=== PATIENT | female | born 1995 | race Caucasian/White ===

== ENCOUNTER 2020-02-23 06:25 | Inpatient (IN) | payer OTHER ==
--- OUTSIDE RECORDS SUMMARY | ~2020-02-23 | XMS | Encounter Summary ---
Demographics + + + | Address | [address] | | | [place] [address] | + + + | Home Phone | | + + + | Preferred Language | Unknown | + + + | Marital Status | | + + + | Gnosticism Affiliation | CHR | + + + | Race | White | + + + | Ethnic Group | Not or | + + + Author + + + | Author | [facility] | + + + | Organization | [facility] | + + + | Address | Unknown | + + + | Phone | Unavailable | + + + Support + + + + + | Name | Relationship | Address | Phone | + + + + + | Bolivar Harris | ECON | [address] | | | | | [place] [address] | | + + + + + Care Team Providers + +------+ + | Care Fur Comber Name | Role | Phone | + +------+ + | No Pcp Per Patient | PCP | Unavailable | + +------+ + Encounter Details +--------+------+ + + + | Date | Type | Department | Care Team | Description | +--------+------+ + + + | 11/20/ | Lab | Laboratory at | | Encounter for | | 2017 | | [facility] | | care in | | | | Center [address] | | first trimester of | | | | St [place], [place] | | first ; | | | | [address] | | History of being | | | | [phone] | | tatooed | +--------+------+ + + + Social History + +-------+ +--------+------+ | Tobacco Use | Types | Packs/Day | Years | Date | | | | | Used | | + +-------+ +--------+------+ | Never Smoker | | | | | + +-------+ +--------+------+ + +---+---+---+ | Smokeless Tobacco: | | | | | Never Used | | | | + +---+---+---+ + + +---------+ + | Alcohol Use | Drinks/Week | oz/Week | Comments | + + +---------+ + | No | | | | + + +---------+ + + + + | Sex Assigned at | Date Recorded | | | | + + + | Not on file | | + + + + + + + | Job Start Date | Occupation | Industry | + + + + | Not on file | Not on file | Not on file | + + + + + + + + | Travel History | Travel Start | Travel End | + + + + + + | No recent travel history available. | + + documented as of this encounter Plan of Treatment +--------+ + + + + | Date | Type | Specialty | Care Team | Description | +--------+ + + + + | 02/24/ | Hospital | Obstetrics & | Amy Ortiz | | 2019 | Encounter | Gynecology | MD Sayra [address] | | | | | , [facility] [address] | | | | | | [place], [place] | | | | | | [address] | | | | | | [phone] | | | | | | | | +--------+ + + + + | 03/02/ | | Obstetrics & | Tika Clifford | | | 2019 | | Gynecology | MD Gold,[address] | | | | | | [place], | | | | | | [place] [address] | | | | | | [phone] | | | | | | | | +--------+ + + + + documented as of this encounter Procedures + +--------+ + + + | Procedure Name | Priori | Date/Time | Associated Diagnosis | Comments | | | ty | | | | + +--------+ + + + | HIV-1,2 AB/HIV-1 P24 | Routin | 11/20/2017 | Encounter for | Results for this | | AG SCREEN | e | 5:17 PM | care in | procedure are in the | | | | PDT | first trimester of | results section. | | | | | first | | + +--------+ + + + | CBC ONLY | Routin | 11/20/2017 | Encounter for | Results for this | | | e | 5:17 PM | care in | procedure are in the | | | | PDT | first trimester of | results section. | | | | | first | | + +--------+ + + + | HEPATITIS C AB | Routin | 11/20/2017 | History of being | Results for this | | SCREEN, REFLEX TO | e | 5:17 PM | tatooed Encounter | procedure are in the | | RNA QUANT | | PDT | for care in | results section. | | | | | first trimester of | | | | | | first | | + +--------+ + + + | HEPATITIS B SURFACE | Routin | 11/20/2017 | Encounter for | Results for this | | ANTIGEN | e | 5:17 PM | care in | procedure are in the | | | | PDT | first trimester of | results section. | | | | | first | | + +--------+ + + + | CBC (HEMOGRAM ONLY) | Routin | 11/20/2017 | Encounter for | Results for this | | | e | 5:17 PM | care in | procedure are in the | | | | PDT | first trimester of | results section. | | | | | first | | + +--------+ + + + | CULTURE, URINE | Routin | 11/20/2017 | Encounter for | Results for this | | | e | 5:17 PM | care in | procedure are in the | | | | PDT | first trimester of | results section. | | | | | first | | | | | | History of being | | | | | | tatooed | | + +--------+ + + + | ELY RUIZ W/ | Routin | 11/20/2017 | Encounter for | Results for this | | REFLEX | e | 5:17 PM | care in | procedure are in the | | | | PDT | first trimester of | results section. | | | | | first | | + +--------+ + + + | VARICELLA ZOSTER | Routin | 11/20/2017 | Encounter for | Results for this | | IGG, SERUM | e | 5:17 PM | care in | procedure are in the | | | | PDT | first trimester of | results section. | | | | | first | | + +--------+ + + + | RPR SERUM | Routin | 11/20/2017 | Encounter for | Results for this | | | e | 5:17 PM | care in | procedure are in the | | | | PDT | first trimester of | results section. | | | | | first | | + +--------+ + + + | RUBELLA IGG AB, | Routin | 11/20/2017 | Encounter for | Results for this | | SERUM | e | 5:17 PM | care in | procedure are in the | | | | PDT | first trimester of | results section. | | | | | first | | + +--------+ + + + | ANTIBODY SCREEN | Routin | 11/20/2017 | Encounter for | Results for this | | | e | 5:17 PM | care in | procedure are in the | | | | PDT | first trimester of | results section. | | | | | first | | + +--------+ + + + | TYPE AND SCREEN | Routin | 11/20/2017 | Encounter for | Results for this | | | e | 5:17 PM | care in | procedure are in the | | | | PDT | first trimester of | results section. | | | | | first | | + +--------+ + + + | ABO & RH TYPE | Routin | 11/20/2017 | Encounter for | Results for this | | | e | 5:17 PM | care in | procedure are in the | | | | PDT | first trimester of | results section. | | | | | first | | + +--------+ + + + | TSH | Routin | 11/20/2017 | Encounter for | Results for this | | | e | 5:17 PM | care in | procedure are in the | | | | PDT | first trimester of | results section. | | | | | first | | + +--------+ + + + | CHLAM/GC APTIMA, | Routin | 11/20/2017 | Encounter for | Results for this | | RNA, TMA | e | 5:08 PM | care in | procedure are in the | | | | PDT | first trimester of | results section. | | | | | first | | + +--------+ + + + documented in this encounter Results CULTURE, URINE (11/20/2017 5:17 PM PDT) + + + + + + | Component | Value | Ref Range | Performed | Pathologist | | | | | At | Signature | + + + + + + | CULTURE | >100,000 cfu/mL | | [facility] | | | RESULT | Staphylococcus | | A MEDICAL | | | URINE | lugdunensis (A) | | CENTER | | + + + + + + + + | Specimen | + + | Urine | + + + + +--------+ + | Organism | Antibiotic | Method | Susceptibility | + + +--------+ + | Staphylococcus | Penicillin | | <=0.03: Sensitive | | lugdunensis | | | | + + +--------+ + | Staphylococcus | Cefoxitin Screen | | NEG: Sensitive | | lugdunensis | | | | + + +--------+ + | Staphylococcus | Ciprofloxacin | | <=0.5: Sensitive | | lugdunensis | | | | + + +--------+ + | Staphylococcus | Clindamycin | | <=0.25: Sensitive | | lugdunensis | | | | + + +--------+ + | Staphylococcus | Erythromycin | | <=0.25: Sensitive | | lugdunensis | | | | + + +--------+ + | Staphylococcus | Gentamicin | | <=0.5: Sensitive | | lugdunensis | | | | + + +--------+ + | Staphylococcus | Levofloxacin | | <=0.12: Sensitive | | lugdunensis | | | | + + +--------+ + | Staphylococcus | Linezolid | | 1: Sensitive | | lugdunensis | | | | + + +--------+ + | Staphylococcus | Moxifloxacin | | <=0.25: Sensitive | | lugdunensis | | | | + + +--------+ + | Staphylococcus | Nitrofurantoin | | <=16: Sensitive | | lugdunensis | | | | + + +--------+ + | Staphylococcus | Oxacillin | | <=0.25: Sensitive | | lugdunensis | | | | + + +--------+ + | Staphylococcus | Rifampin | | <=0.5: Sensitive | | lugdunensis | | | | + + +--------+ + | Staphylococcus | Tetracycline | | <=1: Sensitive | | lugdunensis | | | | + + +--------+ + | Staphylococcus | Vancomycin | | 1: Sensitive | | lugdunensis | | | | + + +--------+ + + + + + + | Performing | Address | City/State/Zipcode | Phone Number | | Organization | | | | + + + + + | [facility] | [address] [place] | [place] | [phone] | | [facility] | [facility] | [address] | | + + + + + CBC ONLY (11/20/2017 5:17 PM PDT) + + + + + + | Component | Value | Ref Range | Performed | Pathologist | | | | | At | Signature | + + + + + + | WBC COUNT | 8.6 | 3.5 - 10.8 K/cu | [facility] | | | | | mm | A MEDICAL | | | | | | CENTER | | + + + + + + | RED CELL | 5.11 | 4.00 - 5.20 | [facility] | | | COUNT | | M/cu mm | A MEDICAL | | | | | | CENTER | | + + + + + + | HEMOGLOBIN | 13.7 | 12.0 - 16.0 | [facility] | | | | | g/dL | A MEDICAL | | | | | | CENTER | | + + + + + + | HEMATOCRIT | 40.2 | 36.0 - 46.0 % | [facility] | | | | | | A MEDICAL | | | | | | CENTER | | + + + + + + | MCV | 78.5 (L) | 80.0 - 96.0 fL | [facility] | | | | | | A MEDICAL | | | | | | CENTER | | + + + + + + | MCH | 26.8 (L) | 28.0 - 34.7 pg | [facility] | | | | | | A MEDICAL | | | | | | CENTER | | + + + + + + | MCHC | 34.1 | 33.0 - 35.5 | [facility] | | | | | g/dL | A MEDICAL | | | | | | CENTER | | + + + + + + | RDW | 13.6 | 11.5 - 15.0 % | [facility] | | | | | | A MEDICAL | | | | | | CENTER | | + + + + + + | PLATELET | 320 | 150 - 400 K/cu | [facility] | | | COUNT | | mm | A MEDICAL | | | | | | CENTER | | + + + + + + | MPV | 8.6 | 7.5 - 11.2 fL | [facility] | | | | | | A MEDICAL | | | | | | CENTER | | + + + + + + + + | Specimen | + + | Blood - Blood | | (substance) | + + + + + | Narrative | Performed At | + + + | No reflex rules apply to this test. | [facility] | | | [facility] | + + + + + + + + | Performing | Address | City/State/Zipcode | Phone Number | | Organization | | | | + + + + + | [facility] | [address] [place] | [place], [place] | [phone] | | [facility] | [address] | [address] | | + + + + + ANTIBODY SCREEN (11/20/2017 5:17 PM PDT) + + + + + + | Component | Value | Ref Range | Performed | Pathologist | | | | | At | Signature | + + + + + + | Antibody | Negative | | [facility] | | | Screen | | | BANK | | + + + + + + + + | Specimen | + + | Blood - Blood | | (substance) | + + + + + + + | Performing | Address | City/State/Zipcode | Phone Number | | Organization | | | | + + + + + | [facility] | [address] [place] | [place] | | | | Streets | [address] | | + + + + + ABO & RH TYPE (11/20/2017 5:17 PM PDT) + + + + + + | Component | Value | Ref Range | Performed | Pathologist | | | | | At | Signature | + + + + + + | ABO Group | A | | [facility] | | | | | | BANK | | + + + + + + | Rh Type | Positive | | [facility] | | | | | | BANK | | + + + + + + + + | Specimen | + + | Blood - Blood | | (substance) | + + + + + + + | Performing | Address | City/State/Zipcode | Phone Number | | Organization | | | | + + + + + | [facility] | and | [place], [place] | | | | Streets | [address] | | + + + + + HEPATITIS C AB SCREEN, REFLEX TO RNA QUANT (11/20/2017 5:17 PM PDT) + + + + + + | Component | Value | Ref Range | Performed | Pathologist | | | | | At | Signature | + + + + + + | HEP C | Non-reactive | Non-reactive | [facility] | | | ANTIBODY | | | A MEDICAL | | | | | | CENTER | | + + + + + + + + | Specimen | + + | Blood - Blood | | (substance) | + + + + + | Narrative | Performed At | + + + | Results obtained wih the Elecsys Anti-HCV immunoassay may not be | [facility] | | used interchangeably with the values obtained with different [facility] | | manufacturers' assay methods. | | + + + + + + + + | Performing | Address | City/State/Zipcode | Phone Number | | Organization | | | | + + + + + | [facility] | [address] | [place], [place] | [phone] | | MEDICAL [facility] | [address] | [address] | | + + + + + ELY RUIZ (11/20/2017 5:17 PM PDT) + + + + + + | Component | Value | Ref Range | Performed | Pathologist | | | | | At | Signature | + + + + + + | COLOR(UR) | Yellow | | [facility] | | | | | | A MEDICAL | | | | | | CENTER | | + + + + + + | APPEARANCE | Clear | | [facility] | | | | | | A MEDICAL | | | | | | CENTER | | + + + + + + | PH (URINE) | 6.5 | 5.0 - 8.5 | [facility] | | | | | | A MEDICAL | | | | | | CENTER | | + + + + + + | PROTEIN, | Trace | Negative, Trace | [facility] | | | URINE | | | A MEDICAL | | | | | | CENTER | | + + + + + + | GLUCOSE | Negative | Negative | [facility] | | | (URINE) | | | A MEDICAL | | | | | | CENTER | | + + + + + + | KETONES | Trace (A) | Negative | [facility] | | | | | | A MEDICAL | | | | | | CENTER | | + + + + + + | SPECIFIC | 1.017 | 1.005 - 1.030 | [facility] | | | GRAVITY | | | A MEDICAL | | | | | | CENTER | | + + + + + + | BILIRUBIN | Negative | Negative | [facility] | | | | | | A MEDICAL | | | | | | CENTER | | + + + + + + | BLOOD | Negative | Negative | [facility] | | | | | | A MEDICAL | | | | | | CENTER | | + + + + + + | NITRITES | Negative | Negative | [facility] | | | | | | A MEDICAL | | | | | | CENTER | | + + + + + + | LEUKOCYTE | Negative | Negative | [facility] | | | ESTERASE | | | A MEDICAL | | | | | | CENTER | | + + + + + + | UROBILINOGE | 2.0 (A) | Negative, 1.0 | [facility] | | | N | | mg/dL | A MEDICAL | | | | | | CENTER | | + + + + + + | SOURCE | | | [facility] | | | (URINALYSIS | | | A MEDICAL | | | ) | | | CENTER | | + + + + + + + + | Specimen | + + | Urine | + + + + + | Narrative | Performed At | + + + | Culture ordered regardless of findings | [facility] | | | MEDICAL [facility]ENTER | + + + + + + + + | Performing | Address | City/State/Zipcode | Phone Number | | Organization | | | | + + + + + | [facility] | [address] | [place], [place] | [phone] | | [facility] | [facility] | [address] | | + + + + + VARICELLA ZOSTER IGG, SERUM (11/20/2017 5:17 PM PDT) + + + + + + | Component | Value | Ref Range | Performed | Pathologist | | | | | At | Signature | + + + + + + | VARICELLA | 1174.00Comment: | index | [facility] | | | ZOSTER IGG | Index | | DIAGNOSTICS | | | | Interpretation | | - [place] | | | | --------- | | | | | | | | | | | | <135.00 | | | | | | Negative - | | | | | | Antibody not detected | | | | | | 135.00 - 164.99 | | | | | | Equivocal > or = | | | | | | 165.00 Positive | | | | | | - Antibody detected | | | | | | A positive result | | | | | | indicates that the | | | | | | patient has | | | | | | antibody to VZV but does | | | | | | not differentiate | | | | | | between an active or | | | | | | past infection. | | | | | | The clinical diagnosis | | | | | | must be interpreted in | | | | | | conjunction with | | | | | | the clinical signs and | | | | | | symptoms of the | | | | | | patient. This assay | | | | | | reliably measures | | | | | | immunity due to | | | | | | previous infection but | | | | | | may not be | | | | | | sensitive enough to | | | | | | detect antibodies | | | | | | induced by | | | | | | vaccination. Thus, a | | | | | | negative result in a | | | | | | vaccinated | | | | | | individual does not | | | | | | necessarily indicate | | | | | | susceptibility to VZV | | | | | | infection. | | | | + + + + + + + + | Specimen | + + | Blood - Blood | | (substance) | + + + + + | Narrative | Performed At | + + + | [facility] performed at [facility] | [facility] | | [address] | DIAGNOSTICS - | | [place] [address] | [place] | | Family Court Justice ELIZABETH STEPHENS MD | | + + + + + + + + | Performing | Address | City/State/Zipcode | Phone Number | | Organization | | | | + + + + + | [facility] | [address] | [place] [address] | | | - [place] | [address] | | | + + + + + TSH (11/20/2017 5:17 PM PDT) + +-------+ + + + | Component | Value | Ref Range | Performed | Pathologist | | | | | At | Signature | + +-------+ + + + | TSH | 1.79 | 0.34 - 5.60 | [facility] | | | | | uIU/mL | A MEDICAL | | | | | | CENTER | | + +-------+ + + + + + | Specimen | + + | Blood - Blood | | (substance) | + + + + + + + | Performing | Address | City/State/Zipcode | Phone Number | | Organization | | | | + + + + + | [facility] | And | [place], [place] | [phone] | | MEDICAL CENTER | [facility] | [address] | | + + + + + RUBELLA IGG AB, SERUM (11/20/2017 5:17 PM PDT) + +-------+ + + + | Component | Value | Ref Range | Performed | Pathologist | | | | | At | Signature | + +-------+ + + + | RUBELLA IGG | 124 | IU/mL | [facility] | | | AB | | | A MEDICAL | | | | | | CENTER | | + +-------+ + + + + + | Specimen | + + | Blood - Blood | | (substance) | + + + + + | Narrative | Performed At | + + + | Interpretation: <10 IU/mL Non-Reactive/Non-Immune | [facility] | | >=10-<15IU/mL EQUIVOCAL >=15 IU/mL Reactive Immune | [facility] | | The following results were obtained with the Elecsys Rubella IgG | | | assay. Results from assays of other manufacturers cannot be used | | | interchangeably. | | + + + + + + + + | Performing | Address | City/State/Zipcode | Phone Number | | Organization | | | | + + + + + | [facility] | And | [place], [place] | [phone] | | MEDICAL CENTER | [address] | [address] | | + + + + + RPR SERUM (11/20/2017 5:17 PM PDT) + + + + + + | Component | Value | Ref Range | Performed | Pathologist | | | | | At | Signature | + + + + + + | RPR | Nonreactive | Nonreactive | [facility] | | | | | | A MEDICAL | | | | | | CENTER | | + + + + + + + + | Specimen | + + | Blood - Blood | | (substance) | + + + + + + + | Performing | Address | City/State/Zipcode | Phone Number | | Organization | | | | + + + + + | [facility] | [address] | [place], [place] | [phone] | | MEDICAL CENTER | [address] | [address] | | + + + + + HIV-1,2 AB/HIV-1 P24 AG SCREEN (11/20/2017 5:17 PM PDT) + + + + + + | Component | Value | Ref Range | Performed | Pathologist | | | | | At | Signature | + + + + + + | HIV-1,2 | NON-REACTIVEComment: | NON-REACTIVE | [facility] | | | AB/HIV-1 | HIV-1 antigen and | | DIAGNOSTICS | | | P24 AG | HIV-1/HIV-2 antibodies | | - [place] | | | SCREEN | were notdetected. There | | | | | | is no laboratory | | | | | | evidence of | | | | | | HIVinfection. PLEASE | | | | | | NOTE: This information | | | | | | has been disclosed toyou | | | | | | from records whose | | | | | | confidentiality may | | | | | | beprotected by state | | | | | | law. If your state | | | | | | requires suchprotection, | | | | | | then the state law | | | | | | prohibits you frommaking | | | | | | any further disclosure | | | | | | of the | | | | | | informationwithout the | | | | | | specific written consent | | | | | | of the personto whom it | | | | | | pertains, or as | | | | | | otherwise permitted by | | | | | | law.A general | | | | | | authorization for the | | | | | | release of medical | | | | | | orother information is | | | | | | NOT sufficient for this | | | | | | purpose. For | | | | | | additional information | | | | | | please refer | | | | | | [email or web address].Inv[employer] | | | | | | [email or web address]/faq/[email or web address] | | | | | | 06(This link is being | | | | | | provided for | | | | | | informational/educationa | | | | | | l purposes only.) The | | | | | | performance of this | | | | | | assay has not been | | | | | | clinicallyvalidated in | | | | | | patients less than 2 | | | | | | years old. | | | | + + + + + + + + | Specimen | + + | Blood - Blood | | (substance) | + + + + + + + | Performing | Address | City/State/Zipcode | Phone Number | | Organization | | | | + + + + + | [facility] | [address] | [place] [address] | | | - [place] | [address] | | | + + + + + HEPATITIS B SURFACE ANTIGEN (11/20/2017 5:17 PM PDT) + + + + + + | Component | Value | Ref Range | Performed | Pathologist | | | | | At | Signature | + + + + + + | HEP B | Non-reactive | Non-reactive | [facility] | | | SURFACE | | | A MEDICAL | | | ANTIGEN | | | CENTER | | + + + + + + + + | Specimen | + + | Blood - Blood | | (substance) | + + + + + | Narrative | Performed At | + + + | Results obtained with the Elecsys HBsAg immunoassay may not be | [facility] | | used interchangeably with the values obtained with different | [facility] | | manufacturers' assay methods. | | + + + + + + + + | Performing | Address | City/State/Zipcode | Phone Number | | Organization | | | | + + + + + | [facility] | [address] | [place] | [phone] | | [facility] | [place] | [address] | | + + + + + CHLAM/GC APTIMA, RNA, TMA (11/20/2017 5:08 PM PDT) + + + + + + | Component | Value | Ref Range | Performed | Pathologist | | | | | At | Signature | + + + + + + | CHLAMYDIA | NOT DETECTED | NOT DETECTED | [facility] | | | PROBE | | | DIAGNOSTICS | | | | | | - [place] | | + + + + + + | GONOCOCCUS | NOT DETECTED | NOT DETECTED | [facility] | | | PROBE | | | DIAGNOSTICS | | | | | | - [place] | | + + + + + + | COMMENTS | SEE NOTEComment: This | | [facility] | | | | test was performed using | | DIAGNOSTICS | | | | the APTIMA COMBO2 | | - [place] | | | | Assay([employer] | | | | | | The analytical | | | | | | performance | | | | | | characteristics of this | | | | | | assay, when used to test | | | | | | [employer] specimens | | | | | | havebeen determined by | | | | | | [facility]. | | | | + + + + + + + + | Specimen | + + | Swab - Vagina | + + + + + + + | Performing | Address | City/State/Zipcode | Phone Number | | Organization | | | | + + + + + | [facility] | [address] [facility] | [place] [address] | | | - [place] | [address] | | | + + + + + documented in this encounter Visit Diagnoses + + | Diagnosis | + + | Encounter for care in first trimester of first | + + | History of being tatooed | + + documented in this encounter"
--- OUTSIDE RECORDS SUMMARY | ~2020-02-23 | XMS | Encounter Summary ---
Demographics + + + | Address | [address] | | | [place] [address] | + + + | Home Phone | | + + + | Preferred Language | Unknown | + + + | Marital Status | | + + + | Hinduism Affiliation | CHR | + + + | Race | White | + + + | Ethnic Group | Not or | + + + Author + + + | Author | [facility] | + + + | Organization | [facility] | + + + | Address | Unknown | + + + | Phone | Unavailable | + + + Support + + + + + | Name | Relationship | Address | Phone | + + + + + | Bolivar Harris | ECON | [address] | | | | | [place] [address] | | + + + + + Care Team Providers + +------+ + | Care Booth Cashier Name | Role | Phone | + +------+ + | No Pcp Per Patient | PCP | Unavailable | + +------+ + Encounter Details +--------+ + + + + | Date | Type | Department | Care Team | Description | +--------+ + + + + | 12/01/ | MyChart | [facility] | Beka Beard MD | RE: Test | | 2018 | Encounter | [facility] | | Results/Update from | | | | E | | Conservation Coordinator phone call | | | | [address] [place] [address] | | | | | | [address] | | | | | | [phone] | | | +--------+ + + + + Social History + +-------+ [...] Obstetrics & | Amy Ortiz | | | 2019 | Encounter | Gynecology | MD Sayra [address] | | | | | | [place] [address] [address] | | | | | | [place] | | | | | | [address] | | | | | | [phone] | | | | | | | | +--------+ + + + + | 03/02/ | | Obstetrics & | Tika Clifford | | | 2019 | | Gynecology | MD Gold[address] [address] | | | | | | [place], | | | | | | [place] [address] | | | | | | [phone] | | | | | | | | +--------+ + + + + documented as of this encounter Visit Diagnoses + + | Diagnosis | + + | Encounter for supervision of normal first in first trimester Supervision of | | normal first | + + documented in this encounter"
--- OUTSIDE RECORDS SUMMARY | ~2020-02-23 | XMS | Encounter Summary ---
Demographics + + + | Address | [address] | | | [place] [address] | + + + | Home Phone | | + + + | Preferred Language | Unknown | + + + | Marital Status | | + + + | Orthodox Affiliation | CHR | + + + | Race | White | + + + | Ethnic Group | Not or | + + + Author + + + | Author | [facility] | + + + | Organization | [facility] | + + + | Address | Unknown | + + + | Phone | Unavailable | + + + Support + + + + + | Name | Relationship | Address | Phone | + + + + + | Bolivar Harris | ECON | [address] | | | | | [place] [address] | | + + + + + Care Team Providers + +------+ + | Care Shuttle Final Inspector Name | Role | Phone | + +------+ + | No Pcp Per Patient | PCP | Unavailable | + +------+ + Encounter Details +--------+ + + + + | Date | Type | Department | Care Team | Description | +--------+ + + + + | 11/18/ | Abstract | [facility] | Veda Villegas, RN | | | 2018 | | [facility] [address] | [address] | | | | | [address] | [place], [place] | | | | | [address] [place] [place] | [address] | | | | | [address] | | | | | | [phone] | | | +--------+ + + + + Social History + +-------+ +--------+------+ | Tobacco Use | Types | Packs/Day | Years | Date | | | | | Used | | + +-------+ +--------+------+ | Never Assessed | | | | | + +-------+ +--------+------+ + + + | Sex Assigned at [...] + + documented as of this encounter Progress Notes Veda Villegas RN - 11/18/2017 10:01 AM PDTChart abstraction completed in preparation for OB Intake. Used Care Everywhere to gather patient information for the chart, to be confirme d with the patient at the time of visit. Mirna has an appointment today, 11/18/17 in [place] with Elise Green, [facility], . I called and spoke to AYANA Moreau and she will have Mirna sign a BHARGAV and will fax record of appointment and u/s to [facility], today. documented in this encounter Plan of Treatment +--------+ + + + + | Date | Type | Specialty | Care Team | Description | +--------+ + + + + | 02/24/ | Hospital | Obstetrics & | Amy Ortiz | | | 2019 | Encounter | Gynecology | MD Sayra [address] | | | [address] | | | | | | [place], [place] | | | | | | [address] | | | | | | [phone] | | | | | | | | +--------+ + + + + | 03/02/ | | Obstetrics & | Tika Clifford | | | 2019 | | Gynecology | MD Gold,S [address] | | | | | | St [place], | | | | | | [place] [address] | | | | | | [phone] | | | | | | | | +--------+ + + + + documented as of this encounter Visit Diagnoses Not on filedocumented in this encounter"
--- OUTSIDE RECORDS SUMMARY | ~2020-02-23 | XMS | Encounter Summary ---
Demographics + + + | Address | [address] | | | [place] [address] | + + + | Home Phone | | + + + | Preferred Language | Unknown | + + + | Marital Status | | + + + | Oriental Orthodox Affiliation | CHR | + + + | Race | White | + + + | Ethnic Group | Not or | + + + Author + + + | Author | [facility] | + + + | Organization | [facility] | + + + | Address | Unknown | + + + | Phone | Unavailable | + + + Support + + + + + | Name | Relationship | Address | Phone | + + + + + | Bolivar Harris | ECON | [address] | | | | | [place] [address] | | + + + + + Care Team Providers + +------+ + | Care Cow Buyer Name | Role | Phone | + +------+ + | No Pcp Per Patient | PCP | Unavailable | + +------+ + Reason for Visit + + + | Reason | Comments | + + + | care | | + + + Encounter Details +--------+ + + + + | Date | Type | Department | Care Team | Description | +--------+ + + + + | 03/17/ | | [facility] | Zina Guaman, | care | | 2018 | | [facility] [address] | [address] | | | | | [address] [place], [place] | | | | | [address], [place] | [address] | | | | | [address] | [phone] | | | | | [phone] | | | +--------+ + + + [...] + + documented as of this encounter Last Filed Vital Signs + + + + + | Vital Sign | Reading | Time Taken | Comments | + + + + + | Blood Pressure | 96/60 | 03/17/2018 4:17 PM | | | | | PDT | | + + + + + | Pulse | - | - | | + + + + + | Temperature | - | - | | + + + + + | Respiratory Rate | - | - | | + + + + + | Oxygen Saturation | - | - | | + + + + + | Inhaled Oxygen | - | - | | | Concentration | | | | + + + + + | Weight | 74.8 kg (165 lb) | 03/17/2018 4:17 PM | | | | | PDT | | + + + + + | Height | - | - | | + + + + + | Body Mass Index | 26.63 | 02/09/2018 7:54 AM | | | | | PDT | | + + + + + documented in this encounter Patient Instructions Patient Instructions Faye Hugo MA - 03/17/2018 4:15 PM PDTPrenatal Visit - Week 24 Please read chapters 7, 23 and 24 in your book. Please come 30 minutes early to y our next appointment for your 1 hour glucose test. Screening for Gestational Diabetes, Anemia, and Low Platelets (1 hour glucose tolerance test and complete blood count) This test should be done at 26-28 weeks in . Please avoid high sugar foods prior to the test. Eat a normal, healthy, diet. Expect to stay at our office for 1 to 1.5 hours to complete the test. You will be given a glucose drink called Glucola. You will drink the entire content of the bottle within 5 minutes. Once you drink the Glucola, do NOT eat, sleep, drink fluids, smoke or exercise until after your blood is drawn. We will draw your blood exactly one hour after you have finished the Glucola. Let s talk some more about Labor (also known as premature labor). The most impor tant message is this: if you think you re in labor, we want you to call us. So, who s at risk of having a baby prematurely? The answer is all women. Howev er, if you had a premature baby in a previous you re at a much higher risk. Wom en who smoke cigarettes also have a higher risk. The majority of time when a woman thinks she might be in premature labor, she is not. Even when we suspect that a woman might be in premature labor, most of those women go on to have their baby at term. Thus, it probably goes without saying, that the diagnosis of l abor is difficult. However, we do know this: babies born prematurely have some serious prob lems. Some actually , and others can have problems like blindness and cerebral palsy. F ortunately, there are a couple of important things that we can do that increase the chance o f a happy/healthy outcome for premature babies. So, when should you call us if you think you might be in premature labor? One problem is t hat premature labor can feel different to different women. If you re not sure, call us. Here are some suggestions: ? Painful uterine contractions, that persist beyond one hour ? Uncomfortable uterine contractions, more than 4 in one hour ? Watery vaginal discharge ? Bloody vaginal discharge ? Abdominal pain and the symptoms of infection (fever, chills, muscle aches, or the feeling that you re coming down with the flu) Try these things: 1. stop what you re doing 2. hydrate yourself (at least a couple of glasses of water); 3. empty your bladder 4. lie down 5. take a hot bath. Doing these things often stops the contractions that are NOT premature labor. Who do I call if I think I might be in premature labor? ? The clinic at [phone] ? Labor and Delivery at [phone] Your Blood Type Do you know your blood type? Do you know if you re Rh Positive or Rh Negative? Ask your doctor or cake stripper what your blood type is. If you are Rh Negative (and your baby s fathe r is Rh Positive), there s a possibility that your baby s blood is somewhat incompati ble with yours. If so, there s a small chance that you could make antibodies against y our baby s (or your next baby s) blood. Don t worry. We have a great way to prevent this. For Rh Negative mothers, we can give you an injection of antibodies that will gobble up any of your baby s blood cells that sne ak past the placenta. We need to give you these antibodies at your next visit (28 weeks). After the baby is born we may give you another of these shots (if your baby is Rh Positive). Weeks 26 to 30 of Your : Care Instructions Your Care Instructions You are now in your last trimester of . Your baby is growing rapidly. And you'll p robably feel your baby moving around more often. Your doctor may ask you to count your baby' s kicks. Your back may ache as your body gets used to your baby's size and length. If you haven't already had the Tdap shot during this , talk to your doctor about g etting it. It will help protect your against pertussis infection. During this time, it's important to take care of yourself and pay attention to what your jose dy needs. If you feel sexual, explore ways to be close with your partner that match your com fort and desire. Use the tips provided in this care sheet to find ways to be sexual in your own way. Follow-up care is a elias part of your treatment and safety. Be sure to make and go to all ap pointments, and call your doctor if you are having problems. It's also a good idea to know y our test results and keep a list of the medicines you take. How can you care for yourself at home? Take it easy at work Take frequent breaks. If possible, stop working when you are tired, and rest during your lunch hour. Take bathroom breaks every 2 hours. Change positions often. If you sit for long periods, stand up and walk around. When you stand for a long time, keep one foot on a low stool with your knee bent. After standing a lot, sit with your feet up. Avoid fumes, chemicals, and tobacco smoke. Be sexual in your own way Having sex during is okay, unless your doctor tells you not to. You may be very interested in sex, or you may have no interest at all. Your growing belly can make it hard to find a good position during intercourse. Experime nt and explore. You may get cramps in your uterus when your partner touches your breasts. A back rub may relieve the backache or cramps that sometimes follow orgasm. Learn about labor Watch for signs of labor. You may be going into labor if: You have menstrual-like cramps, with or without nausea. You have about 6 or more contractions in 1 hour, even after you have had a glass of wate r and are resting. You have a low, dull backache that does not go away when you change your position. You have pain or pressure in your pelvis that comes and goes in a pattern. You have intestinal cramping or flu-like symptoms, with or without diarrhea. You notice an increase or change in your vaginal discharge. Discharge may be heavy, mucu s-like, watery, or streaked with blood. Your water breaks. If you think you have labor: Drink 2 or 3 glasses of water or juice. Not drinking enough fluids can cause contraction s. Stop what you are doing, and empty your bladder. Then lie down on your left side for at least 1 hour. While lying on your side, find your breast bone. Put your fingers in the soft spot just below it. Move your fingers down toward your belly button to find the top of your uterus. Ch sravan to see if it is tight. Contractions can be weak or strong. Record your contractions for an hour. Time a contrac tion from the start of one contraction to the start of the next one. Single or several strong contractions without a pattern are called Juan-Maxwell contrac tions. They are practice contractions but not the start of labor. They often stop if you rafael nge what you are doing. Call your doctor if you have regular contractions. Where can you learn more? To learn more about "Weeks 26 to 30 of Your : Care Instructions", log into your My Chart account at [email or web address]. You can enter S999 in the "Health Library" [facility] box. Not on [employer]? Review the [employer] section of your After Visit Summary for directions on christopher zavala to sign up. Current as of: June 02, 2017 Content Version: 11.7 5214-3832 [email or web address]. Care instructions adapted under license by [facility] [employer]. If you have questions about a medical condition or this instr uction, always ask your healthcare professional. [employer] disclaims any nidia anty or liability for your use of this information. documented in this encounter Progress Notes Zina Guaman MD - 03/17/2018 4:15 PM PDTReturn OB Visit S: Doing well, just finished PT visit. Really liking PT, it is helping a lot with her SI p ain. Loves swimming in the pool. Denies any cramping, bleeding or leaking. Baby active. N otes nausea has returned. Hasn't been taking B6 or unisom but has them. O: VS: BP 96/60 | Wt 74.8 kg (165 lb) | LMP 09/19/2017 | BMI 26.63 kg/(m^2) Gen: Well-appearing, in no distress Abd: soft, NT, gravid Ext: No LE edema or calf tenderness A/P: 23 y.o. at 25w4d here for visit. - PNC: GTT and CBC today, Tdap next visit - Nausea: recommend restarting B6 and unisom - RTC in 3 weeks Zina Guaman MD rFaye hensley MA - 4:15 PM PDTPt states she is having pain down her legs, not today. Pt just got done swimming at [employer] for 45 and is wondering if its ok to do her GTT today. FAYE HUGO MA Pt finished drink @ 1624 documented in this encounter Plan of Treatment +--------+ + + + + | Date | Type | Specialty | Care Team | Description | +--------+ + + + + | 02/24/ | Hospital | Obstetrics & | Amy Ortiz | | | 2019 | Encounter | Gynecology | MD Sayra [address] | | | | | | [address] | | | | | | [place] | | | | | | [address] | | | | | | [phone] | | | | | | | | +--------+ + + + + | 03/02/ | | Obstetrics & | Tika Clifford | | | 2020 | | Gynecology | MD Gold,[address] | | | | | | [place], | | | | | | [place] [address] | | | | | | [phone] | | | | | | | | +--------+ + + + + documented as of this encounter Results GLUCOSE TOLERANCE TEST, 1 HOUR (03/17/2018 5:25 PM PDT) + +-------+ + + + | Component | Value | Ref Range | Performed | Pathologist | | | | | At | Signature | + +-------+ + + + | 1 HOUR | 87 | <130 mg/dL | [facility] | | | GLUCOSE - | | | [facility] MEDICAL | | | 1GT | | | CENTER | | + +-------+ + + + + + | Specimen | + + | Blood - Blood | | (substance) | + + + + + | Narrative | Performed At | + + + | This test is to be used for the diagnosis of gestational diabetes | [facility] | | only. | MEDICAL CENTER | + + + + + + + + | Performing | Address | City/State/Zipcode | Phone Number | | Organization | | | | + + + + + | [facility] | [address] | [place] | [phone] | | [facility] [place] | [address] | | + + + + + documented in this encounter Visit Diagnoses + + | Diagnosis | + + | Encounter for supervision of normal first in second trimester - Primary | | Supervision of normal first | + + | Diabetes mellitus screening Screening for diabetes mellitus | + + | Screening for deficiency anemia Screening for other and unspecified deficiency anemia | + + documented in this encounter
--- OUTSIDE RECORDS SUMMARY | ~2020-02-23 | XMS | Encounter Summary ---
Demographics + + + | Address | [address] | | | [place] [address] | + + + | Home Phone | | + + + | Preferred Language | Unknown | + + + | Marital Status | | + + + | Temple Affiliation | CHR | + + + | Race | White | + + + | Ethnic Group | Not or | + + + Author + + + | Author | [facility] | + + + | Organization | [facility] | + + + | Address | Unknown | + + + | Phone | Unavailable | + + + Support + + + + + | Name | Relationship | Address | Phone | + + + + + | Bolivar Harris | ECON | [address] | | | | | [place] [address] | | + + + + + Care Team Providers + +------+ + | Care Refrigeration Lead Name | Role | Phone | + +------+ + | No Pcp Per Patient | PCP | Unavailable | + +------+ + Encounter Details +--------+ + + + + | Date | Type | Department | Care Team | Description | +--------+ + + + + | 02/23/ | [facility]-Sc | Health Information | Unknown . | | | 2018 | anned | Services [address] | | | | | [address] | | | | | | Mailcode: [id number] | | | | | | [facility] | | | | | | [place], [place] | | | | | | [address] | | | | | | [phone] | | | +--------+ + + + [...] | | | | | | [address] | | | | | | [place] | | | | | | [address] | | | | | | [phone] | | | | | | | | +--------+ + + + + | 03/02/ | | Obstetrics & | Tika Clifford | | | 2019 | | Gynecology | MD Gold,[address] | | | | | | [place], | | | | | | [place] [address] | | | | | | [phone] | | | | | | | | +--------+ + + + + documented as of this encounter Visit Diagnoses Not on filedocumented in this encounter"
--- OUTSIDE RECORDS SUMMARY | ~2020-02-23 | XMS | Encounter Summary ---
Demographics + + + | Address | [address] | | | [place] [address] | + + + | Home Phone | | + + + | Preferred Language | Unknown | + + + | Marital Status | | + + + | Confucianism Affiliation | CHR | + + + | Race | White | + + + | Ethnic Group | Not or | + + + Author + + + | Author | [facility] | + + + | Organization | [facility] | + + + | Address | Unknown | + + + | Phone | Unavailable | + + + Support + + + + + | Name | Relationship | Address | Phone | + + + + + | Bolivar Harris | ECON | [address] | | | | | [place] [address] | | + + + + + Care Team Providers + +------+ + | Care Install And Repair Technician Name | Role | Phone | + +------+ + | No Pcp Per Patient | PCP | Unavailable | + +------+ + Reason for Visit Physical Therapy (Routine) +--------+--------+ + + + + | Status | Reason | Specialty | Diagnoses / | Referred By | Referred To | | | | | Procedures | Contact | Contact | +--------+--------+ + + + + | Closed | | Physical | Diagnoses | Miguelito, | Gianluca, | | | | Therapy | Pain of | Sharon M, | Jessica, PT,DPT | | | | | both hip | [facility] [address] | [address] | | | | | joints Back | [address] | [address] | | | | | pain, | [place], [place] | [place], [place] | | | | | unspecified | [address] | [address] | | | | | back | Phone: | | | | | | location, | [phone] | | | | | | unspecified | Fax: | | | | | | back pain | [phone] | | | | | | laterality, | | | | | | | unspecified | | | | | | | chronicity | | | | | | | Procedures | | | | | | | PHYSICAL | | | | | | | THERAPY | | | | | | | REFERRAL | | | +--------+--------+ + + + + Encounter Details +--------+---------+ + + + | Date | Type | Department | Care Team | Description | +--------+---------+ + + + | 03/02/ | Office | Outpatient Therapy | Jessica Hough, | Sacroiliac | | 2017 | Visit | at [facility] | PT,DPT [address] | dysfunction (Primary | | | | [address] | [address] [place] | Dx); Pelvic girdle | | | | [place], [place] | [address] | weakness | | | | [address] | | | | | | [phone] | | | +--------+---------+ + + + Social History + +-------+ [...] documented as of this encounter Progress Notes Jessica Hough PT,DPT - 03/02/2018 7:00 AM PDTFormatting of this note might be different fro m the original. PHYSICAL THERAPY DAILY NOTE Patient name: Mirna Harris : 1995 Referred by: Sharon Farley FNP Referal diagnosis: M25.551, M25.552 (ICD-10-CM) - 719.45 (ICD-9-CM) - Pain of both hip joints M54.9 (ICD-10-CM) - 724.5 (ICD-9-CM) - Back pain, unspecified back location, unspecified ba ck pain laterality, unspecified chronicity Therapy diagnosis: M53.3 Sacroiliac dysfunction R29.898 Pelvic girdle weakness Procedure performed: n/a Date of procedure: n/a HISTORY OF PRESENT ILLNESS: Mirna Harris is a 22 y.o. F, who presents with chief complaint of Back pain . 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 She recently moved to the area, and the move of carrying boxes increased pain. 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 She j ust cut back to 8 hours a day, and the pain is improved. Only 2 weeks left of harvest. Then will not be working, plans to stay home with the baby after it is born. The pain alternates between the L and R side. Patient points to either SIJ for pain area. Occasional NT down the L leg but this is not often. Occasional feeling of leg giving out. Rolling in/out of the be d, in/out of car or tractor is also painful. Just purchased a maternity support belt and KT tape. The belt worn up over abdomen makes her nauseous CHANTAL: 06/26/18. Currently 20 weeks Prior or concurrent services related to the provision of physical therapy services: Chiropractic but was not helping. PLOF: Long standing SIJ instability CLOF: exacerbated by recent long hours of working and Subjective Pain: Pain level: No pain score recorded on a scale of 1-10 SUBJECTIVE: Pt reports that she got new shoes and her orthotics are fitting well. Back pain is doing pr emani well, she drove to [place] yesterday to do some shopping, and her back was more painful, b ut better today OBJECTIVE: Aquatic therapy progression in the [facility] salt pool for reduced water temperature for sa fety, with therapist instructing patient from the deck for the utilization of warm water, hy drostatic pressure, and buoyancy for pain relief, strengthening, and normalization of gait, and movement patterns TREATMENT: Aquatic Therapeutic Exercise: Walk 3 way- 2 laps each Kickboard: prone kick 2 laps, push pull, prayer hand press down, UTR Medium Dumbbell: punch +Lunge, squat + fly Noodle: frog leg supine kick 1 lap Stretch: HS, ADD, HF Home exercise program: continue with exercises per last visit Patient Education: proper hydration after aquatic therapy ASSESSMENT: Patient tolerates aquatic therapy well. No adverse reactions. [place] better to move her body more. Plan to continue with strength and symptom management promoting self efficacy in exerc ise. Mommy Wellness program discussed with patient, and she was referred today for fall seri es which is a free 8 week interdisciplinary program promoting and exerc ise and education. Plan for next visit: Continue with primary PT plan of care. Progress core strength. PLAN OF CARE: Frequency and Duration: 1x a week for remainder of with follow up at 4-6 weeks po stpartum as well Interventions: Manual Therapy Orthotic fitting Gait training Aquatic Therapy Therapeutic exercise Neuromuscular re-ed PT re-eval Therapeutic Activities Orthotic/Prosthetic Check Physical Therapist Night Patrol Inspector may be involved in this care, as determined appropriate by the Physical Therapist This note will serve as an episode of care discharge summary if the patient does not return to this facility for any future visits or receive any further treatment for this episode. Jessica Hough PT,GABRIEL CAPP-Certificate Pelvic Health Physical Therapy OUTPATIENT THERAPY AT [address] [place] [id number] documented in this en counter Plan of Treatment +--------+ + + + + | Date | Type | Specialty | Care Team | Description | +--------+ + + + + | 02/24/ | Hospital | Obstetrics & | Amy Ortiz | | 2019 | Encounter | Gynecology | MD Sayra [address] | | | | | | , [place] [address] [address] | | | | | | [place] | | | | | | [address] | | | | | | [phone] | | | | | | | | +--------+ + + + + | 03/02/ | | Obstetrics & | Tika Clifford | | 2019 | | Gynecology | MD Gold,[address] | | | | | | [place], | | | | | | [place] [address] | | | | | | [phone] | | | | | | | | +--------+ + + + + documented as of this encounter Visit Diagnoses + + | Diagnosis | + + | Sacroiliac dysfunction - Primary Disorders of sacrum | + + | Pelvic girdle weakness | + + documented in this encounter"
--- OUTSIDE RECORDS SUMMARY | ~2020-02-23 | XMS | Encounter Summary ---
Demographics + + + | Address | [address] | | | [place] [address] | + + + | Home Phone | | + + + | Preferred Language | Unknown | + + + | Marital Status | | + + + | Orthodox Affiliation | CHR | + + + | Race | White | + + + | Ethnic Group | Not or | + + + Author + + + | Author | [facility] | + + + | Organization | [facility] | + + + | Address | Unknown | + + + | Phone | Unavailable | + + + Support + + + + + | Name | Relationship | Address | Phone | + + + + + | Bolivar Harris | ECON | [address] | | | | | [place] [address] | | + + + + + Care Team Providers + +------+ + | Care Chief Executive Or Managing Director Name | Role | Phone | + +------+ + | No Pcp Per Patient | PCP | Unavailable | + +------+ + Reason for Visit + + + | Reason | Comments | + + + | Follow-up visit | Back pain | + + + Encounter Details +--------+---------+ + + + | Date | Type | Department | Care Team | Description | +--------+---------+ + + + | 02/23/ | Office | [place] | Hammad Christy, | Low back pain during | | 2018 | Visit | [facility] | Elise, CUSTOMER SERVICE SALES ASSOCIATE [address] | in second | | | | [address] | trimester (Primary | | | | [address], [place] | [address] [place], [place] | Dx) | | | | [address] | [address] | | | | | [phone] | [phone] | | | | | | | | +--------+---------+ + + + [...] + + + | Blood Pressure | 114/60 | 02/23/2018 2:44 PM | | | | | PDT | | + + + + + | Pulse | 81 | 02/23/2018 2:44 PM | | | | | PDT | | + + + + + | Temperature | 36.7 C (98 F) | 02/23/2018 2:44 PM | | | | | PDT | | + + + + + | Respiratory Rate | - | - | | + + + + + | Oxygen Saturation | 100% | 02/23/2018 2:44 PM | | | | | PDT | | + + + + + | Inhaled Oxygen | - | - | | | Concentration | | | | + + + + + | Weight | 74.2 kg (163 lb 9.6 | 02/23/2018 2:44 PM | | | | oz) | PDT | | + + + + + | Height | - | - | | + + + + + | Body Mass Index | 26.41 | 02/09/2018 7:54 AM | | | | | PDT | | + + + + + documented in this encounter Progress Notes Che Portillo MD - 02/23/2018 2:45 PM PDTI performed a detailed review of the docu mentation and care provided, and have discussed all concerns and questions with the [facility] Nurse Practitioner. Grayson Alvares, CUSTOMER SERVICE SALES ASSOCIATE - 02/23/2018 2:45 PM PDTFormatting of this note might be different from the [facility] [place] [facility]. Mirna Harris is a 23 y.o. female here today. Chief Complaint Patient presents with Follow-up visit Back pain S: She is 22 weeks and here in follow up of back pain. She is actually doing a lot better after several sessions of physical therapy and some KT taping. She did have an incr ease in pain yesterday, probably due to sleeping in a different bed Thursday night, but today is OK. She is planning to get a massage. She also reports some low belly pain at times, especially the other night when she twisted and stretched to answer the phone while i n bed. At the moment, she has no pain. Current Medications: Current Outpatient Prescriptions Medication Sig Doxylamine Succinate (Sleep) (UNISOM (DOXYLAMINE)) 25 mg oral tablet Take 0.5 tablets b y mouth once daily at bedtime. May add 1/2 tablet in the morning if needed Indications: Naus ea Gravidarum levalbuterol (XOPENEX HFA) 45 mcg/actuation inhalation HFA aerosol inhaler Inhale 1-2 p uffs by mouth every six hours as needed (SOB, wheezing, cough). Plsmbejl-Th-Ejn-Fe-FA oral tablet Take 1 tablet by mouth once daily. Indicatio ns: , Prevention of Neural Tube Defects pyridoxine (vitamin B6) 25 mg oral tablet Take 1 tablet by mouth once daily. Take 25 mg at bedtime and may add 25 mg in the morning Indications: Nausea Gravidarum No current facility-administered medications for this visit. Allergies/Adverse Drug Reactions: No Known Allergies O: She appears well. Back taping looks good. No edema or bruising. DTRs are normal in the lower extremities. Vital Signs: BP 114/60 | Pulse 81 | Temp (Src) 36.7 C (98 F) (Tympanic) | Wt 74.2 kg (163 lb 9.6 oz) | SpO2 100% | LMP 09/19/2017 | BMI 26.41 kg/(m^2) A: Musculoskeletal low back in . P: I think that ongoing PT and massage is an excellent idea. She may use a lidoca ine patch OTC if desired (category B according to Up to Date.) See Orders. Alexandria Locke MA - 02/23/2018 2:45 PM PDTPt states that she has been doing PT now for the back pain , s he did fell severe back pain yesterday she slept on a different christian on Thursday night. Alexandria lay MA documented in this enco unter Plan of Treatment +--------+ + + + + | Date | Type | Specialty | Care Team | Description | +--------+ + + + + | 02/24/ | Hospital | Obstetrics & | Amy Ortiz | | | 2019 | Encounter | Gynecology | MD [address]ra [address] | | | | | | [facility] [address] | | | | | | [place] | | | | | | [address] | | | | | | [phone] | | | | | | | | +--------+ + + + + | 03/02/ | | Obstetrics & | Tika Clifford | | | 2019 | | Gynecology | MD Gold[address] | | | | | | [place], | | | | | | [place] [address] | | | | | | [phone] | | | | | | | | +--------+ + + + + documented as of this encounter Visit Diagnoses + + | Diagnosis | + + | Low back pain during in second trimester - Primary | + + documented in this encounter"
--- OUTSIDE RECORDS SUMMARY | ~2020-02-23 | XMS | Encounter Summary ---
Demographics + + + | Address | [address] | | | [place] [address] | + + + | Home Phone | | + + + | Preferred Language | Unknown | + + + | Marital Status | | + + + | Mosque Affiliation | CHR | + + + | Race | White | + + + | Ethnic Group | Not or | + + + Author + + + | Author | [facility] | + + + | Organization | [facility] | + + + | Address | Unknown | + + + | Phone | Unavailable | + + + Support + + + + + | Name | Relationship | Address | Phone | + + + + + | Bolivar Harris | ECON | [address] | | | | | [place] [address] | | + + + + + Care Team Providers + +------+ + | Care Waterproofing Supervisor Name | Role | Phone | + +------+ + | No Pcp Per Patient | PCP | Unavailable | + +------+ + Reason for Visit + + + | Reason | Comments | + + + | Obstetric US Scan | | + + + Encounter Details +--------+ + + + + | Date | Type | Department | Care Team | Description | +--------+ + + + + | 02/15/ | | [place] | | Obstetric US Scan | | 2018 | | [facility] | | | | | | [facility] | | | | | | [address] [place] | | | | | | [address] | | | | | | [phone] | | | +--------+ + + + [...] documented as of this encounter Progress Notes Laura Mike RN - 02/15/2018 8:00 AM PDTSecond trimester anatomy ultrasound completed today, to be read by [facility]. documented in this encounter Plan of Treatment +--------+ + + + + | Date | Type | Specialty | Care Team | Description | +--------+ + + + + | 02/24/ | Hospital | Obstetrics & | Amy Ortiz | | 2019 | Encounter | Gynecology | MD Sayra [address] | | | | | | [address] | | | | | | [place] | | | | | | [address] | | | | | | [phone] | | | | | | | | +--------+ + + + + | 03/02/ | | Obstetrics & | Tika Clifford | | | 2019 | | Gynecology | MD Gold,[address] | | | | | | [address] [place], | | | | | | [place] [address] | | | | | | [phone] | | | | | | | | +--------+ + + + + documented as of this encounter Procedures + +--------+ + + + | Procedure Name | Priori | Date/Time | Associated Diagnosis | Comments | | | ty | | | | + +--------+ + + + | [facility] OB >=14 | Routin | 02/15/2018 | Encounter for | Results for this | | WEEKS SINGLE FETUS - | e | 8:05 AM | supervision of | procedure are in the | | EXTERNAL READ | | PDT | normal first | results section. | | | | | in second | | | | | | trimester | | + +--------+ + + + documented in this encounter Results [facility] OB >=14 WEEKS SINGLE FETUS - EXTERNAL READ (02/15/2018 8:05 AM PDT) + + | Specimen | + + | | + + + + + | Impressions | Performed At | + + + | Ultrasound exam performed at [facility] and will | [facility] | | be read/resulted at [facility]. | DEPARTMENT OF | | | RADIOLOGY | + + + + +---------+ + + | Performing | Address | City/State/Zipcode | Phone Number | | Organization | | | | + +---------+ + + | [facility] DEPARTMENT OF | | | | | RADIOLOGY | | | | + +---------+ + + documented in this encounter Visit Diagnoses + + | Diagnosis | + + | Encounter for supervision of normal first in second trimester - Primary | | Supervision of normal first | + + documented in this encounter"
--- OUTSIDE RECORDS SUMMARY | ~2020-02-23 | XMS | Encounter Summary ---
Demographics + + + | Address | [address] | | | [place] [address] | + + + | Home Phone | | + + + | Preferred Language | Unknown | + + + | Marital Status | | + + + | Taoist Affiliation | CHR | + + + | Race | White | + + + | Ethnic Group | Not or | + + + Author + + + | Author | [facility] | + + + | Organization | [facility] | + + + | Address | Unknown | + + + | Phone | Unavailable | + + + Support + + + + + | Name | Relationship | Address | Phone | + + + + + | Bolivar Harris | ECON | [address] | | | | | [place] [address] | | + + + + + Care Team Providers + +------+ + | Care Cement Mason Name | Role | Phone | + +------+ + | No Pcp Per Patient | PCP | Unavailable | + +------+ + Reason for Visit + + + | Reason | Comments | + + + | Care Questions | | + + + Encounter Details +--------+ + + + + | Date | Type | Department | Care Team | Description | +--------+ + + + + | 12/11/ | Telephone | [place] | Beka Beard MD | Care Questions | | 2018 | | [facility] [address] | | | | | | [address] [facility] | | | | | | [address] [place] | | | | | | [address] | | | | | | [phone] | | | +--------+ + + + [...] | | | | | | St, [facility] [address] | | | | | | [place] | | | | | | [address] | | | | | | [phone] | | | | | | | | +--------+ + + + + | 03/02/ | | Obstetrics & | Tika Clifford | | | 2019 | | Gynecology | MD Gold,[address] | | | | | | [place], | | | | | | [place] [address] | | | | | | [phone] | | | | | | | | +--------+ + + + + documented as of this encounter Visit Diagnoses Not on filedocumented in this encounter"
--- OUTSIDE RECORDS SUMMARY | ~2020-02-23 | XMS | Encounter Summary ---
Demographics + + + | Address | [address] | | | [place] [address] | + + + | Home Phone | | + + + | Preferred Language | Unknown | + + + | Marital Status | | + + + | Yazdanism Affiliation | CHR | + + + | Race | White | + + + | Ethnic Group | Not or | + + + Author + + + | Author | [facility] | + + + | Organization | [facility] | + + + | Address | Unknown | + + + | Phone | Unavailable | + + + Support + + + + + | Name | Relationship | Address | Phone | + + + + + | Bolivar Harris | ECON | [address] | | | | | [place] [address] | | + + + + + Care Team Providers + +------+ + | Care Sound Effects Technician Name | Role | Phone | + +------+ + | No Pcp Per Patient | PCP | Unavailable | + +------+ + Reason for Visit + + + | Reason | Comments | + + + | | OB exam | + + + Encounter Details +--------+ + + + + | Date | Type | Department | Care Team | Description | +--------+ + + + + | 12/14/ | | [facility] | Zeny Beard MD | (OB exam) | | 2018 | | [facility] [address] | | | | | | [address] | | | | | | [address] [place] | | | | | | [address] | | | | | | [phone] | | | +--------+ + + + [...] + + + | Blood Pressure | 104/62 | 12/14/2017 3:12 PM | | | | | PDT [...] + + + + | Weight | 68.9 kg (152 lb) | 12/14/2017 3:12 PM | | | | | PDT | | + + + + + | Height | - | - | | + + + + + | Body Mass Index | 24.43 | 11/20/2017 4:05 PM | | | | | PDT | | + + + + + documented in this encounter Patient Instructions Patient Instructions Александр Lilly MA - 12/14/2017 3:15 PM PDT Initial Visit Welcome to [facility]! This is the first of several messages that will be a part of your After Visit Summary (AVS) . It s a long one, so take your time. We re so happy you ve chosen us to guide you t hrough your . Please read chapters 3 and 25 in your book. How do I reach my provider? Have you signed up for [employer] ? It s the best way to communicate with us for your non-urgent needs. Head to this address to sign up: [email or web address] You will need the activation code you were given at your first visit, your medical record n umber, and your date of . The activation codes after 45 days. If you need a new one please ask any of our front counter attendant staff or give us a call and we can provide over the mary jo ne! We ll try hard to answer your messages within 2-3 business days. Our main phone ivan ramires is [phone]. The phone lines operate from 8:00am-5:00pm. If you have an URGENT need, please call the phone line 24 hours/day and identify that this is an URGENT need. Weeks, Not Months By the way, we talk about WEEKS in , not MONTHS. The average lasts abou t 40 weeks (from your last menstrual period ). We label the week once the week is completed .thus, you will be 24 weeks when you finish the 24th week. Here are some milestones and the weeks-gestation when we usually see them: * Week 1- begins with the first day of your last period * Week 2- meeting of sperm and egg * Week 4-5- a missed period; maybe the beginning of some nausea and breast changes * Week 5- able to see a black dot (the gestational sac) on ultrasound * Week 6- able to see a yolk sac in the gestational sac * Week 6-7- able to see some cardiac motion (beating heart) on ultrasound * Week 8-9- able to make out arm and legs buds on the embryo * Week 12- usually can hear the heart beat with a Doppler machine * Week 14-16- nausea and fatigue begin to improve * Week 16-18- the earliest that experienced mothers first feel their baby s movements * Week 18-20- the earliest that first-time mothers first feel their baby s movements * Week 24- the beginning of the 10-week prematurity period * Week 34- still too early to be born, but baby is now rapidly maturing * Week 38- the beginning of term * Week 40- the average gestational age for a human baby at * Week 41- at the beginning of this week, you are one week overdue How should I eat to have a healthy ? One of your most important missions during your is good nutrition. Each of these AVS messages will contain a nutrition venancio---simple advice about good nutrition- to make s ure you re doing all you can to provide the building blocks for a healthy baby. Today s venancio is about HOW MUCH TO EAT. Keep it simple, eat the equivalent of 3 healthy meals and 2-3 healthy snacks. On average, you only need 300 extra calories PER DAY to build and susta in a health . In the beginning of , you don t really need extra calorie s at all. In fact, it s perfectly normal to lose a little weight (due to the nausea) or m aintain your current weight well into the early second trimester (after 14 weeks). Here are some general hints to get you started: ? increase your intake of foods with fiber and vitamins ? select foods choices that are low in added sugar ? begin to lower your intake of saturated fats by selecting low-fat dairy products and lean proteins (including beans/legumes, fish and seafood) ? take a second look at our Plate; I-lighting Blue Print that you received at your Intake Visit Use the table below to help you meet your needs for protein which is ~71 grams pe r day Protein content of foods Dairy 8 grams per servin cup of milk 7 grams per servin oz yogurt, 1 oz hard cheese, cup cottage cheese Meat, poultry, fish, egg, nuts, legumes 7 grams per servin egg, 1 jumbo shrimp, 1 oz c hicken, cup beans, 2 TBS peanut butter, cup tofu, cup canned wild salmon, 23 almond s Grains 2-3 grams per serving (whole grains usually have more protein: 1 slice bread, cup rice or pasta 4 grams per serving: cup quinoa Vegetables 2 grams per serving, such as 1 cup raw spinach or cup cooked broccoli or willingham ots *(Rule of thumb- include something with protein in it at each meal and snack you eat- this will help you meet your daily goal and since protein is also the macronutrient that keeps yo u feeling fullest the longest, it will also help give you more sustained energy throughout t he day.) Calcium Your body s demand for calcium is greater during (and ). This need is especially great during the last 3 months of . The National Academy of Science s recommends that women who are or consume 1,000 mg (milligrams) of c alcium each day. For teens, the recommended intake is even higher: 1,300 mg of calc ium a day. Good sources of calcium include: ? low-fat dairy products, such as milk, yogurt, cheese, and ice cream ? dark green, leafy vegetables, such as broccoli, richard greens, and bok teresa ? canned sardines and salmon with bones ? tofu, almonds, and corn tortillas ? foods fortified with calcium, such as orange juice, cereals, and breads. Pillsbury-3 Fatty Acids Polyunsaturated fatty acids of the omega-3 and omega-6 groups have important roles in the d evelopment of your baby s brain. These fatty acids are not produced in the body. They ar e only available through what we eat. Two of these fatty acids have critical roles in the d evelopment of the brain and nervous system (arachidonic acid [AA] and docosahexaenoic acid [DHA]). The requirements during have not been established, but likely exceed that of a no n- state. Don t worry so much about the omega-6 fatty acids (you probably get ple nty and too much is not so good). More research is needed but it s quite likely that a ba rafaela of omega-3 and omega-6 fatty acids is more important to women than the actual blood levels of either. However, most experts agree that most women likely do not get enough omega-3 fatty acids because the major dietary source, seafood, is restricted to 2 servings a week. And, although DHA is the omega-3 fatty acid that gets most of the press, another omega-3 fatty ac id, EPA, plays an important role, too. For women to obtain adequate omega-3 fatty acids, a variety of sources should be consumed: ? vegetable oils ? 2 low-mercury fish servings a week, and ? supplements (fish oil or algae-based) .get one that includes both DHA and EPA, which th e algae-based supplement does not. What should I do if I am having issues with nausea or vomiting? Can t eat because of nausea and vomiting? Don t worry ..at this point babies are deisy y effective at getting what they need ..they can get their nutrients directly from your bl oodstream. But what about you, if you re not able to eat, or you re throwing everything up? Call us if you re unable to keep down fluids for more than 8 hours .you may need o ur help to get you through this. If you re keeping fluids down, but have no appetite deven use of nausea here are some things you might try before calling us: * First, eat before you feel hungry. Try to keep something in your stomach at all times. This may help keep your blood sugar from bottoming out. Eat small, frequent meals that in clude some protein. Get a healthy cookie or cracker ([employer] Artist Ryan bustos has a min snap cooki e that s perfect for this), put it next to your bed and eat one or two before you get up i n the morning .then go eat a breakfast that includes some protein. * Drink something before you eat something. Small amounts of these drinks are often helpf ul: carbonated drinks, sports drinks, lemonade, min melvin, and mint tea. * Eat what you can, when you can. If you re really nauseated, and can only stomach cert ain foods, eat what stays down you can catch up on good nutrition later when you feel b angela (usually by 14-16 weeks). * Try some min root ..as a tea, in min capsules, in min snap cookies, or as gin ruth candy. Make sure that your min melvin actually has real min in it. Here s a recipe for a min tea that s tasty, easy to make and easy to carry with you in a thermo s bottle: Buy a min root at the store. Peel off the brown stuff and use a knife or carrot alize to cut off dime/nickel-sized slices. Throw a small handful of these into a pint of piping-h ot water and let it steep (after 10 minutes you can strain off the min but there s no n eed to remove the min if you don t want to). Jake it with honey, but not too much. Squeeze half a lemon into it start sipping it and take a sip every 15-30 minutes. * Get a Seaband or Bioband ..an elastic bracelet that utilizes acupressure theory from T [facility] [employer] . These bracelets have an acupressure button that compresses th e Nei-Anant , or P6 , acupressure spot. * Other hints: -brush your teeth -go outside and breathe fresh air; avoid stuffy rooms -don t take vitamins or supplements on an empty stomach -avoid odors that trigger your nausea * Still nauseated? Try Vitamin B6 and Unisom. Back in 1960s and 70s there was a drug ricardo roved by the Food and Drug Administration for use in for nausea and vomiting. The drug was a mix of B6 and the active ingredient in Unisom (doxylamine). It s safe and kaleb te effective. Here s what to do: buy Unisom tablets, not the gel caps. Before bed, take a half a Unisom tablet and 25 mg of Vitamin B6. If this is not working well, add in the mor mary lou half a Unisom with 25 mg of Vitamin B6. You ll probably notice that you get quite sl eepy after taking it ..keep at it in three to four days the drowsiness will get be tter, and so will your nausea. * None of this is working? Call us. We have some prescription medicines that may help. I smoke and I want to stop. What should I do? Do you smoke cigarettes? Call us. We want to help you quit. Should I do genetic testing? There are a confusing number of options for genetic testing. Equally confusing can be a pr egnant woman s decision to either do the tests or not. This is a highly individualized is pedro, and no one should or should not do genetic testing- it is your individual decision. If you are having a difficult time reaching a decision, we can have you talk to one of our [facility] Counselors. Some women are at a higher risk of having a baby with a genetic problem. These women may w ant to talk with our Genetic Counselors as soon as they know they are . These women include: ? women who will be over the age of 35 when their baby is born ? women with a previous baby with a genetic problem or defect ? women with a family history of a genetic problem What were all the lab tests done at my Intake Visit? You may be wondering what we did with all that blood we took from your arm. Here s what we were looking at: * Your blood count. Blood consists of three different types of cells and watery fluid (c alled plasma) that contains specialized proteins. Your blood count can give us information about your general health status (from the hematocrit and hemoglobin), the presence of infec tion, and information about your blood s ability to clot. * Tests for specific diseases. We routinely test for evidence of past or present disease s, in particular- rubella (azeri measles), varicella (chicken pox), syphilis, HIV, and hepa titis. * Your blood type and Rh status. Your blood type may be A, B, O, or AB. That s import ant to know, in the event that you need a blood transfusion. In rare cases, it may be helpf ul to know your blood type if your develops jaundice. We also check to see if your blood carries the Rh protein. If you do carry it, you are Rh positive . If you do not have it, you are Rh Negative . Rh Negative mothers usually need injections of special ized gamma globulin to prevent the formation of antibodies against a Rh Positive fetus. We also test your blood for other antibodies that can harm your baby or make transfusions diffi cult. We also do some other tests; usually at the first visit. These might include: * A Pap smear, if you need one. * Tests for gonorrhea and Chlamydia, major causes of blindness. * Urine tests, for infection and kidney function. Weeks 10 to 14 of Your : Care Instructions Your Care Instructions By weeks 10 to 14 of your , the placenta has formed inside your uterus. It is poss ible to hear your baby's heartbeat with a special ultrasound device. Your baby's eyes can an d do move. The arms and legs can bend. This is a good time to think about testing for defects. There are two types of tests: screening and diagnostic. Screening tests show the chance that a baby has a certain d efect. They can't tell you for sure that your baby has a problem. Diagnostic tests show if a baby has a certain defect. It's your choice whether to have these tests. You and your partner can talk to your doctor or customer retention specialist about defects tests. Follow-up care is a elias part of your treatment and safety. Be sure to make and go to all ap pointments, and call your doctor if you are having problems. It's also a good idea to know y our test results and keep a list of the medicines you take. How can you care for yourself at home? Decide about tests You can have screening tests and diagnostic tests to check for defects. The decisi on to have a test for defects is personal. Think about your age, your chance of passin g on a family disease, your need to know about any problems, and what you might do after you have the test results. Triple or quadruple (quad) blood tests. These screening tests can be done between 15 and 20 weeks of . They check the amounts of three or four substances in your blood. e doctor looks at these test results, along with your age and other factors, to find out the chance that your baby may have certain problems. Amniocentesis. This diagnostic test is used to look for chromosomal problems in the baby 's cells. It can be done between 15 and 20 weeks of , usually around week 16. Nuchal translucency test. This test uses ultrasound to measure the thickness of the area at the back of the baby's neck. An increase in the thickness can be an early sign of Down s yndrome. Chorionic villus sampling (CVS). This is a test that looks for certain genetic problems with your baby. The same genes that are in your baby are in the placenta. A small piece of t he placenta is taken out and tested. This test is done when you are 10 to 13 weeks . Ease discomfort Slow down and take naps when you feel tired. If your emotions swing, talk to someone. Crying, anxiety, and concentration problems are common. If your gums bleed, try a softer toothbrush. If your gums are puffy and bleed a lot, see your dentist. If you feel dizzy: Get up slowly after sitting or lying down. Drink plenty of fluids. Eat small snacks to keep your blood sugar stable. Put your head between your legs as though you were tying your shoelaces. Lie down with your legs higher than your head. Use pillows to prop up your feet. If you have a headache: Lie down. Ask your partner or a good friend for a neck massage. Try cool cloths over your forehead or across the back of your neck. Use acetaminophen (Tylenol) for pain relief. Do not use nonsteroidal anti-inflammatory d rugs (NSAIDs), such as ibuprofen (Advil, Motrin) or naproxen (Aleve), unless your doctor say s it is okay. If you have a nosebleed, pinch your nose gently, and hold it for a short while. To preve nt nosebleeds, try massaging a small dab of petroleum jelly, such as Vaseline, in your nostr ils. If your nose is stuffed up, try saline (saltwater) nose sprays. Do not use decongestant sprays. Care for your breasts Wear a bra that gives you good support. Know that changes in your breasts are normal. Your breasts may get larger and more tender. Tenderness usually gets better by 12 weeks. Your nipples may get darker and larger, and small bumps around your nipples may show mor e. The veins in your chest and breasts may show more. Don't worry about "toughening'" your nipples. will naturally do this. Where can you learn more? To learn more about "Weeks 10 to 14 of Your : Care Instructions", log into your My Chart account at [email or web address]. You can enter E090 in the "Health Library" [facility] box. Not on [employer]aty[employer]? Review the MyChart section of your After Visit Summary for directions on ho w to sign up. Current as of: September 25, 2016 Content Version: 11.5 5441-0863 [employer]. Care instructions adapted under license by [facility] [employer] [place]. If you have questions about a medical condition or this instr uction, always ask your healthcare professional. [employer] disclaims any nidia anty or liability for your use of this information. documented in this encounter Progress Notes Zeny Beard MD - 12/14/2017 3:15 PM PDT OB Initial Note Patient Information Mirna Harris is a 22 y.o. female T0 P0 SAB0 TAB0 L0 Mult0 Ect0 at 12w2d by MAGI P and 8wk U/S. "borderline constipation". Patient usually has frequent bowel movements, currently going every other day. Social Note: Present with supportive . 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 They are moving from [facility] to [facility] for her 's job. Review of Systems: General: No fevers, chills. Eyes: No changes in vision loss, blurred vision. Ears, Nose and Throat: No nosebleeds, nasal congestion, difficulty swallowing, hoarseness o r sore throat. Respiratory: No shortness of breath, cough, chest discomfort or wheezing. Musculoskeletal: No joint pain, back pain, muscle aches Cardiovascular: No chest pain, skipping beats, lightheadedness, difficulty breathing, fati fredy, palpitations Gastrointestinal: No loss of appetite, vomiting, nausea, abdominal pain, diarrhea Genitourinary: No urinary frequency, blood in urine, painful urination, incontinence, urin sarah urgency, or vaginal bleeding. Neurologic: No headaches, numbness, tingling. Skin: No itching, rash Psychological: No anxiety, depression, thoughts of suicide or hallucinations. Heme/Lymphatic: No skin discoloration, abnormal bleeding Endrocrine: No heat intolerance, cold intolerance Allergic: No seasonal allergies, hives or rash History History: T0 P0 SAB0 TAB0 L0 Mult0 Ect0 OB History Para Term AB Living 1 SAB TAB Ectopic Multiple Live Births # Outcome Date GA Lbr Glen/2nd Weight Sex Delivery Anes PTL Lv 1 Current Patient Active Problem List Diagnosis Date Noted Supervision of normal in first trimester 11/18/2017 Overview Note: FOB: Bolivar Harris Dating Criteria: [x ] LMP or U/S @ [8 Weeks 8-10 WEEKS (Intake & First tri U/S): Labs: [X] Rh: A POS [X] Antibody screen: Negative [X] GC/CT: Negative [ ] Pap: [X] Urine Cx: POS- treated 12-13 WEEKS (Nuchal/Exam) Carrier Screening: [ ] CF [ ] SMA Genetic Screening: [ ] SequentialScreen [ ] NIPT [ ] Nuchal U/S: mm [ ] Flu Shot (Mar-Jun) 16-18 WEEKS [ ] 2nd Sequential Screen [ ] NSAFP [ ] AFP4 20 WEEKS [ ] Ultrasound 19-20 weeks: SEX: Does NOT want to know [ ] Completion anatomy: [ ] Birthing classes 26-28 WEEKS [ ] Tdap (27-36 wks): [ ] Rhogam (28 wks) [ ] 1hr gtt at 24-28wks: [ ] 3hr gtt: [ ] CBC and antibody screen (if Rh negative): 30 WEEKS [ ] Repeat surgical booking? [ ] Sterilization consent: 36 WEEKS [ ] GBS at 35wks: [ ] ppBCM: Undecided [ ] Breast Pump prescription: ULTRASOUNDS [ ] Growth or XUAN Reason: NST Frequency: Reason: Family History Problem Relation GI Mother Gastric bypass and caro surgery None Father Other Sister ADHD None Brother None Maternal Grandmother None Maternal Grandfather Hypertension Paternal Grandmother Heart Attack Paternal Grandfather 2008 Past Medical History: Diagnosis Date Acute cystitis with hematuria 05/02/2016 Asthma History Smoking Status Never Smoker Smokeless Tobacco Never Used History Alcohol Use No History Drug Use No Current Outpatient Prescriptions Medication Sig Doxylamine Succinate (Sleep) (UNISOM (DOXYLAMINE)) 25 mg oral tablet Take 0.5 tablets b y mouth once daily at bedtime. May add 1/2 tablet in the morning if needed Indications: Naus ea Gravidarum Ifhdzsbz-Qk-Rmf-Fe-FA oral tablet Take 1 tablet by mouth once daily. Indicatio ns: , Prevention of Neural Tube Defects pyridoxine (vitamin B6) 25 mg oral tablet Take 1 tablet by mouth once daily. Take 25 mg at bedtime and may add 25 mg in the morning Indications: Nausea Gravidarum No current facility-administered medications for this visit. Allergies: Patient has no known allergies. Additional Comments: BP 104/62 | Wt 68.9 kg (152 lb) | LMP 09/19/2017 | BMI 24.43 kg/(m^2) GENERAL PHYSICAL EXAM: General: This is a well appearing female in no apparent distress. Skin: Warm, dry and no rashes or lesions. HEENT: Normocephalic. Extraocular muscles intact. Neck: Supple. Trachea midline. No thyromegaly. No cervical or supraclavicular lymphadenop athy. Breasts: Symmetric. No dominant masses. No skin changes. No nipple discharge. No axillary lymphadenopathy. Heart: Regular rate and rhythm. No murmur appreciated Lungs: Clear to auscultation bilaterally. Abdomen: Soft. Non-tender. No Rebound. No mass. Musculoskeletal: Normal. Extremities: No edema. Non-tender. Neurological: Normal PELVIC EXAM: External Genitalia: Normal contour. No lesions. Urethral Meatus: Normal in appearance. Bartholin's and Presquille's Glands: Normal in appearance. Vagina: Well estrogenized. Well rugated. No lesions. Cervix: Towards patient left. No lesions. Negative CMT. Pap collected. Uterus: Anteverted. 12-14wk size. Mobile. Non-tender. Adnexa/Parametria: No mass. Non-tender. Rectum: Exam deferred Anus and Perineum: No lesions. Assessment: Mirna Harris is a 22 y.o. female T0 P0 SAB0 TAB0 L0 Mult0 Ect0 at 12w2d by LM P with uncomplicated first . Plan: labs ordered, reviewed & normal other than UTI Next ultrasound at 20wks for anatomy Discussed genetic screening & pt declines. UTI - s/p treatment with Keflex, repeat urine culture today ZENY BEARD MD Александр Barnett MA - 12/14/2017 3:15 PM PDTPt doesn't think she has ever had a pap. Александр Lilly CMA documented in this encounter Plan of Treatment +--------+ + + + + | Date | Type | Specialty | Care Team | Description | +--------+ + + + + | 02/24/ | Hospital | Obstetrics & | Amy Ortiz | | | 2019 | Encounter | Gynecology | MD Sayra [address] | | | | | [address], [place] | | | | | | [place] | | | | | | [address] | | | | | | [phone] | | | | | | | | +--------+ + + + + | 03/02/ | | Obstetrics & | Tika Clifford | | | 2019 | | Gynecology | MD Gold,[address] | | | | | | [place], | | | | | | [place] [address] | | | | | | [phone] | | | | | | | | +--------+ + + + + documented as of this encounter Procedures + +--------+ + + + | Procedure Name | Priori | Date/Time | Associated Diagnosis | Comments | | | ty | | | | + +--------+ + + + | PAP ONLY | Routin | 12/14/2017 | Cervical cancer | Results for this | | | e | 4:13 PM | screening | procedure are in the | | | | PDT | | results section. | + +--------+ + + + | CHLAM/GC APTIMA, | Routin | 12/14/2017 | Screening for STD | Results for this | | RNA, TMA | e | 4:13 PM | (sexually | procedure are in the | | | | PDT | transmitted disease) | results section. | + +--------+ + + + | CULTURE, URINE | Routin | 12/14/2017 | Urinary tract | Results for this | | | e | 4:02 PM | infection without | procedure are in the | | | | PDT | hematuria, site | results section. | | | | | unspecified | | + +--------+ + + + documented in this encounter Results CHLAM/GC APTIMA, RNA, TMA (12/14/2017 4:13 PM PDT) + + + + + [...] | the APTIMA COMBO2 | | - [place] | | | | Assay([employer] | | | | | | [...] Specimen | + + | Swab - Cervix uteri | | structure (body | | structure) | + + + + + + + | Performing | Address | City/State/Zipcode | Phone Number | | Organization | | | | + + + + + | [facility] | [address] [facility] | [place] [address] | | | - [place] | [address] | | | + + + + + PAP ONLY (12/14/2017 4:13 PM PDT) + + + + + + | Component | Value | Ref Range | Performed | Pathologist | | | | | At | Signature | + + + + + + | SOURCE | SEE NOTEComment: Cervix | | [facility] | | | | | | [facility] | | | | | | - [place] | | + + + + + + | CLINICAL | SEE NOTEComment: | | [facility] | | | INFORMATION | | | [facility] | | | | | | - [place] | | + + + + + + | LMP | SEE NOTEComment: | | [facility] | | | | INFORMATION NOT PROVIDED | | [facility] | | | | | | - [place] | | + + + + + + | PREVIOUS | SEE NOTEComment: NO LAST | | [facility] | | | PAP | PAP | | [facility] | | | | | | - [place] | | + + + + + + | PREVIOUS | SEE NOTEComment: N/A | | [facility] | | | BIOPSY | | | [facility] | | | | | | - [place] | | + + + + + + | ADEQUACY | SEE NOTEComment: | | [facility] | | | | Satisfactory for | | [facility] | | | | evaluation.Endocervical/ | | - | | | | transformation zone | | | | | | component absent.Age | | | | | | and/or menstrual status | | | | | | not provided | | | | + + + + + + | INTERPRETAT | SEE NOTEComment: | | [facility] | | | ION-RESULT | Negative for | | [facility]ICS | | | | intraepithelial lesion | | - | | | | or malignancy. | | | | + + + + + + | COMMENT | SEE NOTEComment: This | | [facility] | | | | Pap test has been | | [facility] | | | | evaluated with | | - [place] | | | | computerassisted | | | | | | technology. | | | | + + + + + + | CYTOTECHNOL | SEE NOTEComment: [facility], | | [facility] | | | OGIST | CT(ASCP)CT screening | | [facility] | | | | location: [facility] | | - | | | | [id number] [place] [address] | | | | | | [id number] | | | | | |[address] | | | | + + + + + + | SEE NOTE | SEE NOTEComment: | | [facility] | | | | EXPLANATORY NOTE: The | | DI[facility]NOSTICS | | | | Pap is a screening test | | - | | | | for cervical cancer. It | | | | | | is not a diagnostic test | | | | | | and is subject to false | | | | | | negative and false | | | | | | positive results. It is | | | | | | most reliable when a | | | | | | satisfactory sample, | | | | | | regularly obtained, is | | | | | | submitted with relevant | | | | | | clinical findings and | | | | | | history, and when the | | | | | | Pap result is evaluated | | | | | | along with historic and | | | | | | current clinical | | | | | | information. | | | | + + + + + + + + | Specimen | + + | Tissue - Cervix | | uteri structure | | (body structure) | + + + + + + + | Performing | Address | City/State/Zipcode | Phone Number | | Organization | | | | + + + + + | [facility] | [address] [facility] | [place] [address] | | | - [place] | [address] | | | + + + + + CULTURE, URINE (12/14/2017 4:02 PM PDT) + + + + + + | Component | Value | Ref Range | Performed | Pathologist | | | | | At | Signature | + + + + + + | CULTURE | <10,000 cfu/mL Mixed | | [facility] | | | RESULT | normal urogenital/skin | | [facility] | | | URINE | mariel, probable | | CENTER | | | | contaminant(s) | | | | + + + + + + + + | Specimen | + + | Urine - Urine | | (substance) | + + + + + + + | Performing | Address | City/State/Zipcode | Phone Number | | Organization | | | | + + + + + | [facility] | [address] | [place] | [phone] | | [facility] | [place] | [address] | | + + + + + documented in this encounter Visit Diagnoses + + | Diagnosis | + + | Encounter for supervision of normal first in first trimester - Primary | | Supervision of normal first | + + | Urinary tract infection without hematuria, site unspecified | + + | Cervical cancer screening Screening for malignant neoplasm of the cervix | + + | Screening for STD (sexually transmitted disease) Screening examination for venereal | | disease | + + documented in this encounter
--- OUTSIDE RECORDS SUMMARY | ~2020-02-23 | XMS | Encounter Summary ---
Demographics + + + | Address | [address] | | | [place] [address] | + + + | Home Phone | | + + + | Preferred Language | Unknown | + + + | Marital Status | | + + + | Catholic Affiliation | CHR | + + + | Race | White | + + + | Ethnic Group | Not or | + + + Author + + + | Author | [facility] | + + + | Organization | [facility] | + + + | Address | Unknown | + + + | Phone | Unavailable | + + + Support + + + + + | Name | Relationship | Address | Phone | + + + + + | Bolivar Harris | ECON | [address] | | | | | [place] [address] | | + + + + + Care Team Providers + +------+ + | Care Auto Self Service Station Attendant Name | Role | Phone | + [...] | +--------+ + + + + | 04/12/ | | [place] | Beka Beard MD | care | | 2018 | | [facility] [address] | | | | | [address] [facility] | | | | | | [address] [place] | | | | | | [address] | | | | | | [phone] | | | +--------+ + + + [...] + + + | Blood Pressure | 98/58 | 04/12/2018 3:14 PM | | | | | PDT [...] + + + + | Weight | 78 kg (172 lb) | 04/12/2018 3:14 PM | | | | | PDT | | + + + + + | Height | - | - | | + + + + + | Body Mass Index | 27.76 | 02/09/2018 7:54 AM | | | | | PDT | | + + + + + documented in this encounter Patient Instructions Patient Instructions Faye Powell MA - 04/12/2018 3:30 PM PDTPrenatal Visit - Week 30 Please read chapters 8 and 30 in your book. You may be getting tired of all these messages about nutrition. However, it really is that important now and for the rest of your life. Your health and the health of your child najma depend on the nutritional choices you make NOW. Your fenm-pa-re-born baby will learn hi s/her first nutritional lessons from you. Remember, it s mostly about QUALITY. Eat whole foods, nutritious foods, unprocessed food s. Avoid food that has added sugar, fat, and salt. Avoid food from fast food restaur ants. Cook and prepare food at home. Stop drinking soft drinks. Have a small, healthy snack in between your meals. Have some protein and avoid too many ca rbohydrates (sugar and starch). There is still plenty of time in your to change your nutritional habits ..and b oth you and your baby will benefit from it. Are you having difficulty making healthy choice s?.....call us ..we ll get you together with our movie shot camera operator. your baby We want you to breastfeed your baby. Your body welder wants you to breastfeed your baby. Every health authority on Earth wants you to breastfeed your baby. Breastfed babies are he althier. Period. Breastfed babies have fewer allergies. Breastfed babies have fewer illnesses. Breastfed b abies are less likely to have weight problems later in life. Breast is best. Even if you can only breastfeed your baby for a few days or weeks, the milk that your baby receives from your body will make him/her healthier. We want to help you and your baby get off to a good start. It s not always easy to get t o the point where you offer the breast and your baby effortlessly latches to the nipple in fact, for some women, it can be quite difficult. is an art that both you and your baby will need some time and effort to perfect. But we can help you. After the of your baby, our nurses will help get you started wi th the real thing .and, although you have breasts and your baby has an instinct to suck , it takes a little learning and experience to get the two of you latched together. But, we ll be there to help. : How you feed your is a personal choice. The experts agree that breas tfeeding is best. The [place] [employer] recommends exclusive , sta rting as soon as possible after delivery, for 6 months and continuing for at least one year. The longer and more exclusively a mother breastfeeds her baby, the greater the health benefi ts they both receive. As you consider how you will feed your baby, talk to your provider, your baby s provider, your partner, family members and friends who have breastfed their babies. You also might fi nd it helpful to talk to a student education specialist. They can tell you more about things such as latching your baby, positioning, milk supply and pumping and storing your breast milk. The specialists in [facility] are: Elise Higgins RN, IBCLC - [facility] Kiki Harper RN, IBCLC - [facility] Department In [facility]: Gina Cruz RN, IBCLC [phone] In [facility] - [place]: Maday Diamond NP [phone] Bekah Gonzalez RN [phone] Further Sources for Support and Information: [facility] [place], [place] (Bilingual [place])- [phone] [email or web address] Ana Jernigan [place], [place]- [phone] [email or web address] We encourage our patients to either register for the class or schedule a cons ult with one of the specialists. Breast Pumps Many, if not most, new mothers will benefit from having a good breast pump. A breast pump can: -help establish a good milk supply -provide your milk to a who might not be able to suck -help a mother whose nipples are flat or inverted -provide a means of obtaining and storing breast milk once your supply is well established. Many health insurance companies will now pay for you to have an electric breast pump (they know they ll save money in the long run since mothers and babies who breastfeed are health ier!). Call your insurance company and find out if you need a prescription from us to obtain your pump. We ll be more than happy to help. Planning your NEXT It may seem too early to talk about it but it s not. You need to start two conversa tions about control / family planning / contraception. One conversation with us, and another conversation with your mate. Spacing your babies too closely is not good for your health or theirs. And an unplanned pr egnancy can put a kink in anyone s life. We want you to be able to plan your next . Reliable control methods are cuco dily available, easy to use, and can do a near-perfect job helping you to decide when you teran ve another . We re experts in contraception. Let s talk about it at your future visits. Let s teran ve a solid plan in place before you even have this baby. Forget the rumors; forget what you ve heard; bring an open mind to the possibilities. We can help find a family planning me thod that is best for you. Take charge of your fertility! You can plan when your occurs. It s still too early for that baby Here s another reminder about Labor call us, if you think you might be in labor. It is still way too early for your baby to be born. If you re in labor, we need time to get ready for your baby. The sooner you call us, the more time we have to prepare. So, if you have any of the following signs or symptoms, we want you to call and talk to us: ? Painful contractions of the uterus ? More than 4 contractions per hour ? A watery discharge from your vagina ? A bloody discharge from your vagina ? Constant pain on your uterus ? Uterine pain and signs/symptoms of infection (fever, chills, muscle aches, upper back karen n, or pain/burning when you urinate). Weeks 30 to 32 of Your : Care Instructions Your Care Instructions You have made it to the final months of your . By now, your baby is really startin g to look like a baby, with hair and plump skin. As you enter the final weeks of , the reality of having a baby may start to set in . This is the time to settle on a name, get your household in order, set up a safe nursery, and find quality rn child if needed. Doing these things in advance will allow you to focus on caring for and enjoying your new baby. You may also want to have a tour of your hospital 's labor and delivery unit to get a better idea of what to expect while you are in the [facility]. During these last months, it is very important to take good care of yourself and pay attent ion to what your body needs. If your doctor says it is okay for you to work, don't push your self too hard. Use the tips provided in this care sheet to ease heartburn and care for varic ose veins. If you haven't already had the Tdap shot during this , talk to your doctor about g etting it. It will help protect your against pertussis infection. Follow-up care is a elias part of your treatment and safety. Be sure to make and go to all ap pointments, and call your doctor if you are having problems. It's also a good idea to know y our test results and keep a list of the medicines you take. How can you care for yourself at home? Pay attention to your baby's movements You should feel your baby move several times every day. Your baby now turns less, and kicks and jabs more. Your baby sleeps 20 to 45 minutes at a time and is more active at certain times of day. If your doctor wants you to count your baby's kicks: Empty your bladder, and lie on your side or relax in a comfortable chair. Write down your start time. Pay attention only to your baby's movements. Count any movement except hiccups. After you have counted 10 movements, write down your stop time. Write down how many minutes it took for your baby to move 10 times. If an hour goes by and you have not recorded 10 movements, have something to eat or drin k and then count for another hour. If you do not record 10 movements in either hour, call alexis rae doctor. Ease heartburn Eat small, frequent meals. Do not eat chocolate, peppermint, or very spicy foods. Avoid drinks with caffeine, such as coffee, tea, and sodas. Avoid bending over or lying down after meals. Talk a short walk after you eat. If heartburn is a problem at night, do not eat for 2 hours before bedtime. Take antacids like Mylanta, Maalox, Rolaids, or Tums. Do not take antacids that have sod ium bicarbonate. Care for varicose veins Varicose veins are blood vessels that stretch out with the extra blood during . Your legs may ache or throb. Most varicose veins will go away after the . Avoid standing for long periods of time. Sit with your legs crossed at the ankles, not t he knees. Sit with your feet propped up. Avoid tight clothing or stockings. Wear support hose. Exercise regularly. Try walking for at least 30 minutes a day. Where can you learn more? To learn more about "Weeks 30 to 32 of Your : Care Instructions", log into your My Chart account at [email or web address]. You can enter X471 in the "Health Library" [facility] box. Not on [employer]? Review the MyChart section of your After Visit Summary for directions on ho w to sign up. Current as of: June 02, 2017 Content Version: 11.7 8060-7390 [employer]. Care instructions adapted under license by [facility] [place]. If you have questions about a medical condition or this instr uction, always ask your healthcare professional. [employer] disclaims any nidia anty or liability for your use of this information. documented in this encounter Progress Notes Beka Beard MD - 04/12/2018 3:30 PM PDTPatient feeling well. Patient continues to do p hysical therapy and this is helping with her low back pain. She denies leaking, bleeding, contractions. Abdomen soft, gravid, non-tender. FHR normal. Discussed water , risks, potential benefits & recommendations from AAP & ACOG. Patien t given consent for for review. Blanco ESTELLE Mckinney - 07/2017 3:30 PM PDTPt states she has some pain in her right upper abdomen. She states she no tices it more when she bends over. Pt will get her Tdap and Flu shot today. FAYE POWELL MA The patient was screened for the following contraindications to influenza vaccine and respo nses were as follows: Febrile illness today? No Allergy to eggs? No Prior history of a reaction to flu vaccine? No Prior history of Guillain-Westminster syndrome? No (For patients receiving Fluarix): Allergy or sensitivity to Latex? No Consulted with AB regarding positive responses. documented in this encou nter Plan of Treatment +--------+ + + + + | Date | Type | Specialty | Care Team | Description | +--------+ + + + + | 02/24/ | Hospital | Obstetrics & | Amy Ortiz | | | 2019 | Encounter | Gynecology | MD Sayra [address] | | | | [address], [place] | | | | | | [place] | | | | | | [address] | | | | | | [phone] | | | | | | | | +--------+ + + + + | 03/02/ | | Obstetrics & | Tika Clifford | | | 2019 | | Gynecology | MD [address] | | | | | | [place], | | | | | | [place] [address] | | | | | | [phone] | | | | | | | | +--------+ + + + + documented as of this encounter Visit Diagnoses + + | Diagnosis | + + | Encounter for supervision of normal first in third trimester - Primary | | Supervision of normal first | + + | Health care maintenance Unspecified general medical examination | + + documented in this encounter
--- OUTSIDE RECORDS SUMMARY | ~2020-02-23 | XMS | Encounter Summary ---
Demographics + + + | Address | [address] | | | [place] [address] | + + + | Home Phone | | + + + | Preferred Language | Unknown | + + + | Marital Status | | + + + | Sikh Affiliation | CHR | + + + | Race | White | + + + | Ethnic Group | Not or | + + + Author + + + | Author | [facility] | + + + | Organization | [facility] | + + + | Address | Unknown | + + + | Phone | Unavailable | + + + Support + + + + + | Name | Relationship | Address | Phone | + + + + + | Bolivar Harris | ECON | [address] | | | | | [place] [address] | | + + + + + Care Team Providers + +------+ + | Care Computer Security Coordinator Name | Role | Phone | + +------+ + | No Pcp Per Patient | PCP | Unavailable | + +------+ + Reason for Visit + + + | Reason | Comments | + + + | Back pain | | + + + Physical Therapy (Routine) +--------+--------+ + + + + | Status | Reason | Specialty | Diagnoses / | Referred By | Referred To | | | | | Procedures | Contact | Contact | +--------+--------+ + + + + | Closed | | Physical | Diagnoses | Miguelito, | Gianluca, | | | | Therapy | Pain of | Sharon Colbert, | Jessica, PT,DPT | | | | | both hip | [employer]SEMBLER [address] | [address] | | | | | joints Back | [address] | [address] | | | | | pain, | [place], [place] | [place], [place] | | | | | unspecified | [address] | [address] | | | | | back | Phone: | | | | | | location, | [phone] | | | | | | unspecified | Fax: | | | | | | back pain | [phone] | | | | | | laterality, [...] Description | +--------+---------+ + + + | 02/16/ | Office | Outpatient Therapy | Jessica Hough, | Sacroiliac | | 2018 | Visit | at [facility] | PT,DPT [address] | dysfunction (Primary | | | | [address] | [place], [place] | Dx); Pelvic girdle | | | | [place], [place] | [address] | weakness | | | | [address] | | | | | | [phone] | | | +--------+---------+ + + + [...] documented as of this encounter Progress Notes Jsesica Hough, PT,DPT - 02/16/2018 7:45 AM PDTFormatting of this note might be different fro m the original. PHYSICAL THERAPY DAILY NOTE Referred by: Sharon Farley FNP Referral Diagnosis: M25.551, M25.552 (ICD-10-CM) - 719.45 (ICD-9-CM) - Pain of both hip joints M54.9 (ICD-10-CM) - 724.5 (ICD-9-CM) - Back pain, unspecified back location, unspecified ba ck pain laterality, unspecified chronicity Therapy Diagnosis:M53.3 Sacroiliac dysfunction R29.898 Pelvic girdle weakness HISTORY OF PRESENT INJURY/ILLNESS: Mirna Harris is a 22 y.o. F, [...] by recent long hours of working and Pain: Pain level: 2/10 on a scale of 1-10 SUBJECTIVE: Pt states that she is feeling a little better, has questions about her upcoming orthotics c onsult, sleeping, and popping her back OBJECTIVE: Pelvic alignment: R innominate elevated with L innominate posterior. Corrected with seated pelvic MET TREATMENT: Therapeutic Exercise Pelvic MET - sitting Kegels: strength, endurance, and The Knack Cat cow Child pose Pelvic tilts and circles on ball Alt UE and LE march on ball Hip clocks - no resistance SAPD BTB Dynamic row BTB Home exercise program: Cat cow Child pose Pelvic tilts and circles on ball Alt UE and LE march on ball Hip clocks - no resistance SAPD BTB Dynamic row BTB Patient education: Plan to purchase supportive athletic shoes, prepare for orthotics consult next visit. Patient to wear belt as need for SIJ stability antepartum and post , at least with walking, gardening, or shopping. Encouraged pt to avoid chronic self manipulation of back. Discussed options for better sleeping positions. ASSESSMENT: Patient's pelvic alignment maintained after correction at start of session. She tolerates e xercise well, and has improvement in symptoms. All questions answered in regards to sleeping positioning, avoiding chronic self manipulation etc. Plan to continue with next visit ortho tics for over pronation and loss of medial arch support. Then progress to alternating land a nd aquatic therapy for SIJ stabilization Plan next visit: review HEP and progress core strength GOALS: Short Term Goals: Goal Description Time Status Data/Notes Pt will be independent with progressive HEP for strengthening and stretching of her core, h ips, and trunk, 4 weeks Ongoing Pt will demonstrate full forward trunk flexion without pain. 4 weeks Ongoing Correction Goals: Goal Description Time Status Data/Notes Pt will maintain level pelvis without obliquity as evident by her ability to perform self m obilizations as needed 8 weeks Ongoing Pt will report being able to carry grocery bag or laundry basket without pelvic/SIJ pain gr eater than 2/10 8 weeks Ongoing PLAN OF CARE: Frequency and Duration: 1x a week for remainder of with follow up at 4-6 weeks po stpartum as well Interventions: Manual Therapy Orthotic fitting Gait training Aquatic Therapy Therapeutic exercise Neuromuscular re-ed PT re-eval Therapeutic Activities Orthotic/Prosthetic Check Physical Therapist Car Hopper may be involved in this care, as determined appropriate by the Physical Therapist This note will serve as an episode of care discharge summary if the patient does not return to this facility for any future visits or receive any further treatment for this episode. JESSICA HOUGH PT,DPT OUTPATIENT THERAPY AT [address] [place] [address] [phone] documented in this en counter Plan of [...] [place] | | | | | | [address] | | | | | | [phone] | | | | | | | | +--------+ + + + + | 03/02/ | | Obstetrics & | Tika Clifford | | | 2020 | | Gynecology | MD [address] | | | | | | [place], | | | | | | [place] [address] | | | | | | [phone] | | | | | | | | +--------+ + + + + documented as of this encounter Visit Diagnoses + + | Diagnosis | + + | Sacroiliac dysfunction - Primary Disorders of sacrum | + + | Pelvic girdle weakness | + + documented in this encounter"
--- OUTSIDE RECORDS SUMMARY | ~2020-02-23 | XMS | Encounter Summary ---
Demographics + + + | Address | [address] | | | [place] [address] | + + + | Home Phone | | + + + | Preferred Language | Unknown | + + + | Marital Status | | + + + | Jew Affiliation | CHR | + + + | Race | White | + + + | Ethnic Group | Not or | + + + Author + + + | Author | [facility] | + + + | Organization | [facility] | + + + | Address | Unknown | + + + | Phone | Unavailable | + + + Support + + + + + | Name | Relationship | Address | Phone | + + + + + | Bolivar Harris | ECON | [address] | | | | | [place] [address] | | + + + + + Care Team Providers + +------+ + | Care Rotary Planer Set Up Operator Name | Role | Phone | + [...] | | | | both hip | POLYMERIZATION HELPER [address] | | | | | joints Back | [address] | [address] | | | | | pain, | [place], [place] | | | | | unspecified | [address] | [address] | | | | | back | Phone: | | | | | | location, | [phone] | | | | | | unspecified | Fax: | | | | | | back pain | [phone] | | | | | | laterality, [...] Description | +--------+---------+ + + + | 02/25/ | Office | Outpatient Therapy | Marielena Carcamo, | Sacroiliac | | 2017 | Visit | at [facility] | PT,DPT,OCS [address] | dysfunction (Primary | | | | [address] | [address] | Dx); Pelvic girdle | | | | [place], [place] | [place], [place] | weakness | | | | [address] | [address] | | | | | [phone] | | | +--------+---------+ + + + [...] documented as of this encounter Progress Notes Marielena Carcamo, PT,DPT,OCS - 02/25/2018 10:15 AM PDT PHYSICAL THERAPY DAILY NOTE Patient name: Mirna [...] a scale of 1-10 SUBJECTIVE: Pt reports buying new shoes but they are too narrow for her toe box so she will be returnin g them. Pt presents with her worn out New Balance shoes today. OBJECTIVE: New Balance shoes are well-worn at this point but sufficient to fit new semi-custom orthoti cs which can then be transferred into new shoes once obtained. TREATMENT: Semi-custom orthotic fabrication size 42 BF foam with 3mm ucolite topcover. Home exercise program: continue with exercises per visit with Jessica Patient Education: Appreciation of a good fit. ASSESSMENT: Pt appreciated a good fit with semi-custom orthotics fabricated today. They offered suffici ent support to decreased bilateral foot pronation to add to a more neutral foot and ankle po sturing. Plan for next visit: Continue with primary PT plan of care. Progress core strength. PLAN OF CARE: Frequency and Duration: 1x a week for remainder of with follow up at 4-6 weeks po stpartum as well Interventions: Manual Therapy Orthotic fitting Gait training Aquatic Therapy Therapeutic exercise Neuromuscular re-ed PT re-eval Therapeutic Activities Orthotic/Prosthetic Check Physical Therapist Shoe Cobbler may be involved in this care, as determined appropriate by the Physical Therapist This note will serve as an episode of care discharge summary if the patient does not return to this facility for any future visits or receive any further treatment for this episode. Marielena Carcamo PT,GABRIEL,ARMINDA OUTPATIENT THERAP[facility] AT [address] [place] [address] documented in thi s encounter Plan of Treatment +--------+ + + + + | Date | Type | Specialty | Care Team | Description | +--------+ + + + + | 02/24/ | Hospital | Obstetrics & | Amy Ortiz | | | 2019 | Encounter | Gynecology | MD Sayra [address] | | | | | | The | | | | | | [place], [place] | | | | | | [address] | | | | | | [phone] | | | | | | | | +--------+ + + + + | 03/02/ | | Obstetrics & | Tika Clifford | | | 2019 | | Gynecology | MD Gold[address] | | | | | | [place], | | | | | | [place] [address] | | | | | | [phone] | | | | | | | | +--------+ + + + + documented as of this encounter Visit Diagnoses + + | Diagnosis | + + | Sacroiliac dysfunction - Primary Disorders of sacrum | + + | Pelvic girdle weakness | + + documented in this encounter"
--- OUTSIDE RECORDS SUMMARY | ~2020-02-23 | XMS | Encounter Summary ---
Demographics + + + | Address | [address] | | | [place] [address] | + + + | Home Phone | | + + + | Preferred Language | Unknown | + + + | Marital Status | | + + + | Anabaptist Affiliation | CHR | + + + | Race | White | + + + | Ethnic Group | Not or | + + + Author + + + | Author | [facility] | + + + | Organization | [facility] | + + + | Address | Unknown | + + + | Phone | Unavailable | + + + Support + + + + + | Name | Relationship | Address | Phone | + + + + + | Bolivar Harris | ECON | [address] | | | | | [place] [address] | | + + + + + Care Team Providers + +------+ + | Care Leather Leveler Name | Role | Phone | + +------+ + | No Pcp Per Patient | PCP | Unavailable | + +------+ + Reason for Referral Consultation (Routine) +--------+--------+ + + + + | Status | Reason | Specialty | Diagnoses / | Referred By | Referred To | | | | | Procedures | Contact | Contact | +--------+--------+ + + + + | Denied | | Massage | Diagnoses | Miguelito, | [facility] | | | | Therapy / Spa | Pain of | Sharon M, | [facility] | | | | Services | both hip | 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 [address] | [address] | | | | | joints Back | [address] | [address] | | | | | pain, | [place], [place] | [place] | | | | | unspecified | [address] | [address] | | | | | back | Phone: | Phone: | | | | | location, | [phone] | [phone] | | | | | unspecified | Fax: | Fax: | | | | | back pain | [phone] | [phone] | | | | | laterality, | | | | | | | unspecified | | | | | | | chronicity | | | | | | | Procedures | | | | | | | CONSULT TO | | | | | | | [facility] | | | | | | | IN MASSAGE | | | | | | | THERAPY | | | +--------+--------+ + + + + Physical Therapy (Routine) +--------+--------+ [...] | | | | both hip | 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 [address] | [address] | | | | | joints Back | [address] | [address] | | | | | pain, | [place], [place] | | | | | unspecified | [address] | [address] | | | | | back | Phone: | | | | | | location, | [phone] | | | | | | unspecified | Fax: | | | | | | back pain | [phone] | | | | | | laterality, | | | | | | | unspecified | | | | | | | chronicity | | | | | | | Procedures | | | | | | | PHYSICAL | | | | | | | THERAPY | | | | | | | REFERRAL | | | +--------+--------+ + + + + Reason for Visit + + + | Reason | Comments | + + + | Back pain | | + + + Encounter Details +--------+---------+ + + + | Date | Type | Department | Care Team | Description | +--------+---------+ + + + | 02/09/ | Office | [facility] | Sharon Farley, | Pain of both hip | | 2018 | Visit | Medicine [address] | 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 [address] | joints (Primary Dx); | | | | [address] [place], | [place], [place] | Back pain, | | | | [place] [address] | [address] | unspecified back | | | | [phone] | [phone] | location, | | | | | | unspecified back | | | | | | pain laterality, | | | | | | unspecified | | | | | | chronicity; 20 weeks | | | | | | gestation of | | | | | | ; Mild | | | | | | intermittent asthma | | | | | | without complication | +--------+---------+ + + + Social History [...] + + + | Blood Pressure | 118/72 | 02/09/2018 7:54 AM | | | | | PDT | | + + + + + | Pulse | 104 | 02/09/2018 7:54 AM | | | | | PDT | | + + + + + | Temperature | - | - | | + + + + + | Respiratory Rate | - | - | | + + + + + | Oxygen Saturation | 99% | 02/09/2018 7:54 AM | | | | | PDT | | + + + + + | Inhaled Oxygen | - | - | | | Concentration | | | | + + + + + | Weight | 73.9 kg (163 lb) | 02/09/2018 7:54 AM | | | | | PDT | | + + + + + | Height | 167.6 cm (5' 6") | 02/09/2018 7:54 AM | | | | | PDT | | + + + + + | Body Mass Index | 26.31 | 02/09/2018 7:54 AM | | | | | PDT | | + + + + + documented in this encounter Patient Instructions Patient Instructions Sharon Farley FNP - 02/09/2018 8:00 AM PDTFormatting of this not e might be different from the original. Assessment and Plan: Visit Diagnosis and Associated Orders- Mirna was seen today for back pain. Diagnoses and all orders for this visit: Pain of both hip joints - PHYSICAL THERAPY REFERRAL - CONSULT TO [facility] Back pain, unspecified back location, unspecified back pain laterality, unspecified chronic ity - PHYSICAL THERAPY REFERRAL - CONSULT TO [facility] 20 weeks gestation of Comment: recurrent hip and generalized back pain. Worsened by long work days and hard labor Plan: - start PT and massage - make sure you are drinking lots of water, taking regular stretching breaks, and eating re gular meals with snacks if needed - rest and increase activity as tolerated - keep moving and stretching with hip/back pain- walking can be helpful - avoid pain triggers - ice/heat to the area on and off to help with swelling and discomfort - tylenol (helps with pain) per bottle label instructions - increase stretching as tolerated - note given for school to excuse patient from work as appropriate - f/u if pain persists or worsen or with discussed alarm signs - establish care with Elise Christy/ recheck back pain in two weeks Return in about 2 weeks (around 02/23/2018), or if symptoms worsen or fail to improve, for w christie Christy . YURY Oleary [facility] Family Medicine [facility] Department of Family Medicine Electronically signed by YURY Martines at 2017 8:34 AM PDT documented in this encounter Progress Notes Sharon Farley FNP - 02/09/2018 8:00 AM PDT Assessment and Plan: Visit Diagnosis and Associated Orders- Mirna was seen today for back pain. Diagnoses and all orders for this visit: Pain of both hip joints - PHYSICAL THERAPY REFERRAL - [facility]ULT TO [facility] Back pain, unspecified back location, unspecified back pain laterality, unspecified chronic ity - PHYSICAL THERAPY REFERRAL - CONSULT TO [facility] 20 weeks gestation of Mild intermittent asthma without complication - levalbuterol (XOPENEX HFA) 45 mcg/actuation inhalation HFA aerosol inhaler; Inhale 1- 2 puffs by mouth every six hours as needed (SOB, wheezing, cough). Comment: recurrent hip and generalized back pain. Worsened by long work days and hard labor Plan: - start PT and massage - make sure you are drinking lots of water, taking regular stretching breaks, and eating re gular meals with snacks if needed - rest and increase activity as tolerated - keep moving and stretching with hip/back pain- walking can be helpful - avoid pain triggers - ice/heat to the area on and off to help with swelling and discomfort - tylenol (helps with pain) per bottle label instructions - increase stretching as tolerated - note given for school to excuse patient from work as appropriate - f/u if pain persists or worsen or with discussed alarm signs - establish care with Elise Christy/ recheck back pain in two weeks - rare asthma attacks uses Xopenex in the past 2-3 times yearly, her inhaler is and she requests refill. discussed risk vs benefit in only use if needed - recommend shorter work days given exacerbation of symptoms with 12 plus hour days Return in about 2 weeks (around 02/23/2018), or if symptoms worsen or fail to improve, for w christie Christy . YURY Oleary [facility] Family Medicine [facility] Department of Family Medicine Subjective: Patient Id: Mirna Harris is a 22 y.o. female. Chief Complaint Patient presents with Back pain History of Present Illness: 20 weeks Hip pain on and off and back pain on and off but patient feels like is aggravatin g recurrent back pain Has been working with a chiropractor on and off- but this is not helping She works long days and is wondering if she should be cutting back. She works 6 days per we ek, 7 AM- 9:30/10:00 PM. 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 Was able to stop more frequently but given they are behind schedule they are cutting for longer periods. Air conditioner in the tractor. This is not a workers comp visit per patient Back pain This is a recurrent problem. Episode onset: years. The problem has been waxing and waning s michael onset. Pain location: hips, and entire back The quality of the pain is described as ac arthur and shooting. Radiates to: along the back and into the hips. The pain is mild. Worse du ring: worse after patient has a long day of activity The symptoms are aggravated by sitting , twisting and bending. Stiffness is present at night. Associated symptoms include leg pain (knee and ankles at times ). Pertinent negatives include no abdominal pain, bladder incontin ence, bowel incontinence, chest pain, dysuria, fever, headaches, numbness, paresis, paresthe nasrin, pelvic pain, perianal numbness, tingling, weakness or weight loss. Risk factors includ e . She has tried heat, ice, walking and chiropractic manipulation (stretching, APA P) for the symptoms. The treatment provided moderate relief. Patient also requests a refill of her xopenex. She has mild intermittent asthma. Rarely use s inhaler. Needed it a few weeks ago when working around the [employer] but her inhaler is d. Review of Systems Constitutional: Negative for fever and weight loss. Cardiovascular: Negative for chest pain. Gastrointestinal: Negative for abdominal pain and bowel incontinence. Genitourinary: Negative for bladder incontinence, dysuria and pelvic pain. Musculoskeletal: Positive for back pain. Neurological: Negative for tingling, weakness, numbness, headaches and paresthesias. Allergies: No Known Allergies Medications: Current Outpatient Prescriptions: Doxylamine Succinate (Sleep) (UNISOM (DOXYLAMINE)) 25 mg oral tablet, Take 0.5 tablets by mouth once daily at bedtime. May add 1/2 tablet in the morn ing if needed Indications: Nausea Gravidarum, Disp: 30 tablet, Rfl: 2 levalbuterol (XOPENEX HFA) 45 mcg/actuation inhalation HFA aerosol inhaler, Inhale 1-2 puff s by mouth every six hours as needed (SOB, wheezing, cough)., Disp: 1 Inhaler, Rfl: 2 Hmeyswgl-Ib-Edw-Fe-FA oral tablet, Take 1 tablet by mouth once daily. Indications: , Prevention of Neural Tube Defects, Disp: 30 tablet, Rfl: 11 pyridoxine (vitamin B6) 25 mg oral tablet, Take 1 tablet by mouth once daily. Take 25 mg at bedtime and may add 25 mg in the morning Indications: Nausea Gravidarum, Disp: 30 tablet, R fl: 2 Objective: BP 118/72 | Pulse 104 | Ht 1.676 m (5' 6") | Wt 73.9 kg (163 lb) | SpO2 99% | LMP 09/19/201 8 | BMI 26.31 kg/(m^2) Physical Exam Constitutional: She is oriented to person, place, and time. She appears well-developed. No distress. Eyes: Conjunctivae are normal. Cardiovascular: Normal rate. Pulmonary/Chest: Effort normal. Neurological: She is alert and oriented to person, place, and time. She has normal strength . She displays no atrophy and no tremor. No cranial nerve deficit or sensory deficit. She ex hibits normal muscle tone. She displays a negative Romberg sign. She displays no seizure act ivity. Coordination and gait normal. Reflex Scores: Patellar reflexes are 2+ on the right side and 2+ on the left side. Skin: Skin is warm. Capillary refill takes less than 2 seconds. Psychiatric: She has a normal mood and affect. Procedures documented in this encounter Plan of Treatment +--------+ + + + + | Date | Type | Specialty | Care Team | Description | +--------+ + + + + | 02/24/ | Hospital | Obstetrics & | Amy Ortiz | | | 2019 | Encounter | Gynecology | MD Sayra [address] | | | | | | [facility] [address] | | | | | | [place], [place] | | | | | | [address] | | | | | | [phone] | | | | | | | | +--------+ + + + + | 03/02/ | | Obstetrics & | Tika Clifford | | | 2019 | | Gynecology | MD Gold,[facility] [address] | | | | | | [place], | | | | | | [place] [address] | | | | | | [phone] | | | | | | | | +--------+ + + + + documented as of this encounter Visit Diagnoses + + | Diagnosis | + + | Pain of both hip joints - Primary | + + | Back pain, unspecified back location, unspecified back pain laterality, unspecified | | chronicity | + + | 20 weeks gestation of state, incidental | + + | Mild intermittent asthma without complication Unspecified asthma | + + documented in this encounter
--- OUTSIDE RECORDS SUMMARY | ~2020-02-23 | XMS | Encounter Summary ---
Demographics + + + | Address | [address] | | | [place] [address] | + + + | Home Phone [...] + + + | Author | [facility] | + + + | Organization | [facility] | + + + | Address | Unknown | + + + | Phone | Unavailable | + + + Support + + + + + | Name | Relationship | Address | Phone | + + + + + | Bolivar Harris | ECON | [address] | | | | | [place] [address] | | + + + + + Care Team Providers + +------+ + | Care Access Coordinator Name | Role | Phone | [...] | +--------+ + + + + | 02/03/ | Telephone | [place] | Zina Guaman, | Back pain | | 2018 | | [facility] [address] | | | | | [address] [place], [place] | | | | | [address] [place], [place] | [address] | | | | | [address] | [phone] | | | | | [phone] | | | +--------+ + + + [...] | | | | | | , The | | | | | | [place] | | | | | | [address] | | | | | | [phone] | | | | | | | | +--------+ + + + + | 03/02/ | | Obstetrics & | Tika Clifford | | | 2020 | | Gynecology | MD Gold,[facility] [address] | | | | | | [place], | | | | | | [place] [address] | | | | | | [phone] | | | | | | | | +--------+ + + + + documented as of this encounter Visit Diagnoses Not on filedocumented in this encounter"
--- OUTSIDE RECORDS SUMMARY | ~2020-02-23 | XMS | Encounter Summary ---
Demographics + + + | Address | [address] | | | [place] [address] | + + + | Home Phone [...] + + + | Author | [facility] | + + + | Organization | [facility] | + + + | Address | Unknown | + + + | Phone | Unavailable | + + + Support + + + + + | Name | Relationship | Address | Phone | + + + + + | Bolivar Harris | ECON | [address] | | | | | [place] [address] | | + + + + + Care Team Providers + +------+ + | Care Residential Coordinator Name | Role | Phone | [...] | +--------+ + + + + | 01/11/ | | [place] | Lindsey, | care | | 2018 | | [facility] | Analene, MD [address] | | | | [address] | | | | | [address] [place], [place] | [place], [place] | | | | | [address] | [address] | | | | | [phone] | [phone] | | | | | | | [...] + + + | Blood Pressure | 102/60 | 01/11/2018 10:20 AM | | | | | PDT [...] + + + + | Weight | 69.4 kg (153 lb) | 01/11/2018 10:20 AM | | | | | PDT | | + + + + + | Height | - | - | | + + + + + | Body Mass Index | 24.59 | 11/20/2017 4:05 PM | | | | | PDT | | + + + + + documented in this encounter Patient Instructions Patient Instructions BethelGuyESTELLE fulton - 01/11/2018 10:45 AM PDTFormatting of this note migh t be different from the original. Visit - Week 16 Congratulations, you are now in your second trimester. Usually this means you are feeling a little better. . . a little less fatigued and a little less nauseated. Please read chapter s 5 and 21 in your book. Genetic Screening and Ultrasound Some of you may have already completed some testing for genetic screening. Are yo u doing the Sequential Screening for genetic problems? If so, your second test should be do ne between 16 and 18 weeks gestation. Although, some women elect to skip this. Also, coming up is your mid- ultrasound. If you didn t schedule that at your vi sit today, call the clinic and get that done. We want to do this scan just AFTER the mid-po int of .just after 20 weeks. Doing this scan after 20 weeks means your baby is big enough for us to see more of the baby s anatomy. Although ultrasound cannot see ev erything and thus cannot picker/puller all problems, it can provide us with reasonable assurance t hat your baby is growing normally. What is a ultrasound? ultrasound is a test that lets your doctor see an image of your baby. Your doctor norris rns information about your baby from this picture. You may find out, for example, if you are having a boy or a girl. But the main reason you have this test is to get information about your baby's health. (You may hear your baby called a fetus. This is a common medical term for a baby that's jeff wing in the mother's uterus.) What kind of information can you learn from this test? The findings of an ultrasound fall into two categories, normal and abnormal. Normal The fetus is the right size for its age. The placenta is the expected size and does not cover the cervix. There is enough amniotic fluid in the uterus. No defects can be seen. Abnormal The fetus is small or large for its age. The placenta covers the cervix. There is too much or too little amniotic fluid in the uterus. The fetus may have a defect. What does an abnormal result mean? Abnormal seems to imply that something is wrong with your baby. But what it means is that t he test has shown something the doctor wants to take a closer look at. And that's what happens next. Your doctor will talk to you about what further test or tests you may need. What are some possible results? Some of the things your doctor may see on an abnormal ultrasound include: Echogenic bowel. The bowel looks very bright on the screen. This could mean there is blo od in the bowel. Or it could mean that something is blocking the small bowel. Increased nuchal translucency. The ultrasound measures the thickness at the back of the baby's neck. An increase in thickness is sometimes an early sign of Down syndrome. Increased or decreased amniotic fluid. The doctor will look for a reason for the level o f amniotic fluid and will watch the closely as it progresses. Large ventricles. Ventricles in the brain look larger than they should. Your doctor may take a closer look at the brain. Renal pyelectasis/hydronephrosis. The ultrasound measures an area of the baby's renal pe lvis. If the area is larger than expected, there is a chance of urinary tract or kidney prob lems. Short long bones. The ultrasound measures certain arm and leg bones. A long bone (humeru s or femur) that is shorter than average could be a sign of Down syndrome. What do you do now? Take a deep breath, and let it out. Keep in mind that an abnormal finding on an ultrasound, after it's coupled with more information, may: spout tender to be nothing. spout tender to be something mild that won't affect the baby. spout tender to be something more serious. But if this happens, early diagnosis helps you an d your doctor plan treatment options sooner rather than later. Nutrition Today s Nutritional Temitope is this: Eat enough; but don t over-eat. Are you really eat ing for TWO? Well, yes and no. But one of you is pretty small. Early in , no inc rease in calories is really needed. In the last months of , a woman only needs an additional 300 calories (that s about 2 glasses of milk OR three slices of bread). Howev er, a focus just on calories misses a major point about nutrition ..(unless you re getti ng too many - which can lead to excess weight gain for both you and your baby). Think qual ity, not quantity. Certainly, if you think you re not getting enough calories, call us. Last visit s Nutritional Temitope was this: Keep it simple, eat the equivalent of three heal thy meals and three healthy snacks. What is healthy? Generally, healthy is more easily fou nd on the margins of the supermarket, not in the rows. Healthy is the produce department, d airy cases, and meat department. Healthy is fresh fruits, fresh vegetables, whole grains, u nsweetened dairy products, cheeses, eggs, meats and fish. Think twice if food comes in a jose x or package, especially if the food was processed or changed in some way (like turning corn into oil-fried corn chips). Read the ingredients did they add fat, sugar, or salt? H ealthy is also whole that means brown rice instead of white rice; whole grain breads an d cereals instead of white bread. How much weight should I gain? This is one of the toughest questions we address duri ng . The common advice to gain 25-35 pounds is at most a broad guideline. E ach woman is special and unique, and many women gain more or less than this and have healthy pregnancies and babies. The more difficult answer is that weight gain is less important th an the quality of your nutrition. But it is likely that you will gain weight. So, using we ight gain as a guide in must take into account some individual variation. We use the Body Mass Index (BMI), a calculation based on your height and weight, to begin this conv ersation. Last 1 Encounter BMI Readings: Date BMI 12/14/2017 24.43 kg/m2 BMI Recommended Weight Gain (lbs) <18.5 28-40 18-24.9 25-35 25-29.9 15-25 30-34.9 11-20 >35 0-9 Where does the weight go? Baby 8 lbs Placenta 2-3 lbs Amniotic Fluid 2-3 lbs Breast Tissue 2-3 lbs Blood Supply 4 lbs Fat stores for delivery & breast feeding 5-9 lbs Uterus increase 2-5 lbs TOTAL 25-35 lbs Again ..keep it simple ..the equivalent of three, healthy meals and three healthy snack s. Fresh, whole foods. Fruits and vegetables. 71g of a high-quality protein every day (eg gs, dairy, meats, fish, chicken, beans/grains). and stay away from empty calories . What are empty calories ? .foods, th at is, junk foods, that provide calories but no other nutrition. The classic examples are c hips, sodas, cakes, cookies, ice cream. With that said, variety is the spice of life, and a good diet can include the occasional treat. Another important nutrient (although it s really not a nutrient, per se) is fiber. Gener ally speaking, most of us don t get enough of it. Fiber is the fibrous part of fruits and vegetables that human beings cannot digest. So, why would we need a food component that we don t digest? ? Fiber helps rid our bodies of the toxins and waste-products produced in the liver. ? Fiber is the bulk of our poop ? Fiber helps rid our bodies of high levels of cholesterol ? Fiber helps us moderate our blood sugars ? Fiber helps nourish the good bacteria that live in our gut Most modern diets do not provide our bodies with enough fiber. In fact, the modern grocery store can actually sabotage our efforts to eat a healthy diet. As consumers we are pushed toward too much fat, too much sugar, too much salt, too much processed food, and not nearly enough fiber. Thus, the modern diet sets us up for weight gain, diabetes, high blood pressu re, and .constipation. Human beings are omnivores ..we can eat a little of everyt arthur. Our primitive ancestors ate a diet that included large amounts of fiber. Meats, dair y products, eggs, and fish were luxurious, infrequent additions to what was probably a diet of mostly plants (fruits and vegetables) and thus, a lot more fiber. For some women, compounds the potential for constipation. The muscles in the wal ls of the intestines (which move food along the digestive tract) relax during - slo wing down the movement of food through the body. As the passage of food slows down , the last few feet of bowel (the colon) have more time to pull water out of the fiber that makes it that far and instead of soft poop, the stool becomes hard. If there s not m ore fiber coming down the pike, the hard stool sits in the colon and gets harder and you ve got a problem. Here are suggestions for avoiding constipation: ? Get plenty of fiber ? Drink plenty of water (avoid a lot of fluids that are sweet) ? Get plenty of exercise Unfortunately, all intestines are not created equal. Some women s digestive systems are just slower than others. can compound problems with constipation. If you are one of those women, talk to us. We have more tricks in the bag for dealing with constipation, including: ? Prunes. All that you ve heard is true. Start with prunes. ? Bulk additives, like psyllium, a grain product that holds water ? Senna, a grain product that also helps stimulate the gut (a laxative) ? Docusate, a medicine that helps the stool retain moisture Numerous other laxative products (talk to us before you try any laxative products). Exercise Did we mention exercise? It s something we all need to do ..every day ..even pregnan t women. About 30 minutes of moderate exertion most days of the week. That could be a bris k walk, a workout program designed for women, or the moderate exercise that you v e always done. does change your body in some ways that may impact your exercise regimen: ? Sometimes, if you overdo it, you ll be more fatigued and recover more slowly ? The cartilage and ligaments that pad and hold your joints together soften during pregnanc y. Thus, you might be more susceptible to injury if you start an unfamiliar activity or pus h your body too hard ? Dehydration can make the uterus contract ..so, keep drinking those fluids during exerci se. Weeks 14 to 18 of Your : Care Instructions Your Care Instructions During this time, you may start to "show," so that you look to people around you. You may also notice some changes in your skin, such as itchy spots on your palms or acne on your face. Your baby is now able to pass urine, and your baby's first stool (meconium) is starting to collect in his or her intestines. Hair is also beginning to grow on your baby's head. At your next visit, between weeks 18 and 20, your doctor may do an ultrasound test. The kylah t allows your doctor to check for certain problems. Your doctor can also tell the sex of you r baby. This is a good time to think about whether you want to know whether your baby is a b oy or a girl. Talk to your doctor about getting a flu shot to help keep you healthy during your . As your moves along, it is common to worry or feel anxious. Your body is changing a lot. And you are thinking about giving , the health of your baby, and becoming a par ent. You can learn to cope with any anxiety and stress you feel. Follow-up care is a elias part of your treatment and safety. Be sure to make and go to all ap pointments, and call your doctor if you are having problems. It's also a good idea to know y our test results and keep a list of the medicines you take. How can you care for yourself at home? ?Reduce stress ? Ask for help with cooking and housekeeping. ? Figure out who or what causes your stress. Avoid these people or situations as much as possible. ? Relax every day. Taking 10- to 15-minute breaks can make a big difference. Take a walk , listen to music, or take a warm bath. ? Learn relaxation techniques at or yoga class. Or buy a relaxation tape. ? List your fears about having a baby and becoming a parent. Share the list with someone you trust. Decide which worries are really small, and try to let them go. Exercise ? If you did not exercise much before , start slowly. Walking is best. Pace you rself, and do a little more every day. ? Brisk walking, easy jogging, low-impact aerobics, water aerobics, and yoga are good ch oices. Some sports, such as scuba diving, horseback riding, downhill skiing, gymnastics, and water skiing, are not a good idea. ? Try to do at least 2 hours a week of moderate exercise, such as a fast walk. One way to do this is to be active 30 minutes a day, at least 5 days a week. It's fine to be active in blocks of 10 minutes or more throughout your day and week. ? Wear loose clothing. And wear shoes and a bra that provide good support. ? Warm up and cool down to start and finish your exercise. ? If you want to use weights, be sure to use light weights. They reduce stress on your j oints. ?Stay at the best weight for you ? Experts recommend that you gain about 1 pound a month during the first 3 months of you r . ? Experts recommend that you gain about 1 pound a week during your last 6 months of preg angelica, for a total weight gain of 25 to 35 pounds. ? If you are underweight, you will need to gain more weight (about 28 to 40 pounds). ? If you are overweight, you may not need to gain as much weight (about 15 to 25 pounds) . ? If you are gaining weight too fast, use common sense. Exercise every day, and limit sw eets, fast foods, and fats. Choose lean meats, fruits, and vegetables. ? If you are having twins or more, your doctor may refer you to a dietitian. Where can you learn more? To learn more about "Weeks 14 to 18 of Your : Care Instructions", log into your My Chart account at [email or web address]. You can enter I453 in the "Health Library" [facility] box. Not on [facility]? Review the MyChart section of your After Visit Summary for directions on christopher w to sign up. Current as of: September 25, 2016 Content Version: 11.5 5430-7392 [employer]. Care instructions adapted under license by [facility] [employer]. If you have questions about a medical condition or this instr uction, always ask your healthcare professional. [employer] disclaims any nidia anty or liability for your use of this information. documented in this encounter Progress Notes Che Portillo MD - 01/11/2018 10:45 AM PDTS: Mirna is a at 16w2d who presents today for a routine OB visit. She has not yet felt any movement. O: General: NAD Abdomen: Soft, gravid. Psych: Appropriate mood and affect A: Mirna is a at 16w2d who presents today for a routine OB visit. P: F/u in 4 weeks for a routine OB visit and anatomy ultrasound Recommended that she buy [employer] insurance. Discussed activity restrictions in . rayden, ESTELLE Mckinney - 01/11/2018 10:45 AM PDTPt c/o hip pain. Pt did go get adjusted by her chiropractor. Pt wo uld like to discuss pre term labor. FAYE HUGO MA documented in this encounter Plan of Treatment [...] [place] | | | | | | [address] | | | | | | [phone] | | | | | | | | +--------+ + + + + | 03/02/ | | Obstetrics & | Tika Clifford | | | 2019 | | Gynecology | MD Gold,[address] | | | | | | [place], | | | | | | [place] [address] | | | | | | [phone] | | | | | | | | +--------+ + + + + documented as of this encounter Visit Diagnoses + + | Diagnosis | + + | Encounter for supervision of normal first in second trimester - Primary | | Supervision of normal first | + + documented in this encounter
--- OUTSIDE RECORDS SUMMARY | ~2020-02-23 | XMS | Encounter Summary ---
Demographics + + + | Address | [address] | | | [place] [address] | + + + | Home Phone | | + + + | Preferred Language | Unknown | + + + | Marital Status | | + + + | Hindu Affiliation | CHR | + + + | Race | White | + + + | Ethnic Group | Not or | + + + Author + + + | Author | [facility] | + + + | Organization | [facility] | + + + | Address | Unknown | + + + | Phone | Unavailable | + + + Support + + + + + | Name | Relationship | Address | Phone | + + + + + | Bolivar Harris | ECON | [address] | | | | | [place] [address] | | + + + + + Care Team Providers + +------+ + | Care Photographer Assistant Name | Role | Phone | + [...] | | | | both hip | [employer] [address] | [address] | | | | | joints Back | [address] | [address] | | | | | pain, | [place], [place] | [place], [place] | | | | | unspecified | [address] | [address] | | | | | back | Phone: | | | | | | location, | [phone] | | | | | | unspecified | Fax: | | | | | | back pain | [phone] | | | | | | laterality, [...] Description | +--------+---------+ + + + | 03/29/ | Office | Outpatient Therapy | Jessica Hough, | Sacroiliac | | 2018 | Visit | at [facility] | PT,DPT [address] | dysfunction (Primary | | | | [address] | [place], [place] | Dx) | | | | [place], [place] | [address] | | | | | [address] | | | | | | [phone] | | | +--------+---------+ + + + [...] as of this encounter Progress Notes Jessica Hough, PT,DPT - 03/29/2018 1:15 PM PDTFormatting of this note might be [...] unspecified chronicity Therapy diagnosis: M53.3 Sacroiliac dysfunction Procedure performed: n/a Date of procedure: n/a [...] recorded on a scale of 1-10 SUBJECTIVE: Patient states that she went to a football game over the weekend and sat on bleachers, the next day she went to the [employer] and walked around a lot. Her back pain is worse today due to this. OBJECTIVE: Aquatic therapy progression in [facility] for reduced water temperature for sa fety, with therapist instructing patient from the deck for the utilization of warm water, hy drostatic pressure, and buoyancy for pain relief, strengthening, and normalization of gait, and movement patterns TREATMENT: Aquatic Therapeutic Exercise: Walk 3 way- 2 laps each added dumbbells to walking- increased walk to a september Kickboard: prone kick 2 laps, push pull, prayer hand press down, UTR Medium Dumbbell: punch +Lunge, squat + fly Noodle: frog leg supine kick 1 lap, prone plank reverse push up Stretch: HS, ADD, HF Home exercise program: continue with exercises per last visit Patient Education: review of upcoming [facility]. Pt is registered and class [employer] 04/12/18. POC changed to be every other week aquatic only. ASSESSMENT: Patient tolerates aquatic therapy well. No adverse reactions. She has reduction in pain wit h aquatic exercise. We will reduce frequency to every other week with aquatic therapy for co ntinuation of monitoring symptoms, as her progresses. Plan for next visit: Progress core strength. And pelvic stability. PLAN OF CARE: Frequency and Duration: 1x every other week for remainder of with follow up at 4 -6 weeks as well Interventions: Manual Therapy Orthotic fitting Gait training Aquatic Therapy Therapeutic exercise Neuromuscular re-ed PT re-eval Therapeutic Activities Orthotic/Prosthetic Check Physical Therapist Barn And Property Manager may be involved in this care, as determined appropriate by the Physical Therapist This note will serve as an episode of care discharge summary if the patient does not return to this facility for any future visits or receive any further treatment for this episode. Jessica Hough PT,DPT CAPP-Certificate Pelvic Health Physical Therapy OUTPATIENT THERAPY AT [address] [place] [phone] documented in this en counter Plan of Treatment +--------+ + + + + | Date | Type | Specialty | Care Team | Description | +--------+ + + + + | 02/24/ | Hospital | Obstetrics & | Amy Ortiz | | | 2019 | Encounter | Gynecology | MD Sayra [address] | | | | | | , [place] | | | | | | [place] | | | | | | [address] | | | | | | [phone] | | | | | | | | +--------+ + + + + | 03/02/ | | Obstetrics & | Tika Clifford | | | 2019 | | Gynecology | MD [address] | | | | | | [place], | | | | | | [place] [address] | | | | | | [phone] | | | | | | | | +--------+ + + + + documented as of this encounter Visit Diagnoses + + | Diagnosis | + + | Sacroiliac dysfunction - Primary Disorders of sacrum | + + documented in this encounter"
--- OUTSIDE RECORDS SUMMARY | ~2020-02-23 | XMS | Encounter Summary ---
Demographics + + + | Address | [address] | | | [place] [address] | + + + | Home Phone | | + + + | Preferred Language | Unknown | + + + | Marital Status | | + + + | Restoration Affiliation | CHR | + + + | Race | White | + + + | Ethnic Group | Not or | + + + Author + + + | Author | [facility] | + + + | Organization | [facility] | + + + | Address | Unknown | + + + | Phone | Unavailable | + + + Support + + + + + | Name | Relationship | Address | Phone | + + + + + | Bolivar Harris | ECON | [address] | | | | | [place] [address] | | + + + + + Care Team Providers + +------+ + | Care Crane Oiler Name | Role | Phone | + +------+ + | No Pcp Per Patient | PCP | Unavailable | + +------+ + Reason for Visit + + + | Reason | Comments | + + + | | | + + + Encounter Details +--------+ + + + + | Date | Type | Department | Care Team | Description | +--------+ + + + + | 02/15/ | | [place] | Beka Beard MD | | | 2018 | | [facility] [address] | | | | | | E [facility] | | | | | | [address] | | | | | | [address] | | | | | | [phone] | | | +--------+ + + + [...] + + + | Blood Pressure | 112/62 | 02/15/2018 10:09 AM | | | | | PDT [...] + + + + | Weight | 73 kg (161 lb) | 02/15/2018 10:09 AM | | | | | PDT | | + + + + + | Height | - | - | | + + + + + | Body Mass Index | 25.99 | 02/09/2018 7:54 AM | | | | | PDT | | + + + + + documented in this encounter Patient Instructions Patient Instructions Александр Lilly MA - 02/15/2018 10:15 AM PDTPrenatal Visit - Week 2 0 You ve arrived at the group home point in your . You re probably feeling your ba by move. Your body is changing, and will change even more dramatically in the weeks to come . Please read chapters 6 and 22 in your book. Premature Labor Your baby still needs to live inside you. S/he is much too young to be able to live outsid e you. We want to raise the issue of labor with you. 12% of women deliver their ba bies prematurely (before 37 weeks). These babies have a higher chance of health problems in their infancy, and some may not survive. Premature labor is difficult to diagnose accurate ly and difficult to treat. If you suspect you might be in premature labor, call us. Here are some signs and symptoms that are sometimes seen in premature labor (and, unfortuna tely, these can all occur in a healthy, normal ): ? Painful, uterine contractions ? A bloody vaginal discharge ? A watery vaginal discharge ? Lower abdominal pain ? Fever, chills, muscle aches Nutrition Today s Nutritional Temitope: Let s get serious about good nutrition. You ll be glad y ou did! We re keeping it simple .remember? Three high-quality meals and three high-kari lity snacks. Foods like chips, sodas, and pastries should be only a small part of a h ealthy diet. Surround yourself with good food choices. Bring on the hard-boiled eggs. Bessy ng on the zucchini and carrot sticks (dip them in some hummus). Bring on the string cheese sticks. Have a glass of milk. Have a grilled cheese sandwich (on a whole-grain bread!). Dental Care That beautiful smile also needs attention during your so it s important to keep up with your regular teeth cleanings. Bleeding gums are a common problem for wome n and keeping your teeth clean and flossed regularly can help keep your gums healthy. Don t put off seeing your dentist if you have tooth pain or need dental work done to prevent an y kind of infection. You can safely get treatment in including the use of local a nesthetic (numbing medicine), antibiotics and x-rays if they are necessary for treatment. Travel Travel within the [place] during a healthy is OK .even flying in commercial jets. If you are having problems with your and need to travel, call us first. If you c an, don t plan to travel in the last month of . can increase the risk of blood clots forming in your legs. Don t sit for more than 2 hours without getting up and moving your legs. Keep yourself well-hydrated! And because of that, pee frequently. Don t hold your urine . If you have to go .go! Travel outside of the country is not advised for a variety of reasons. If you must travel outside the country, read this first from the Centers for Disease Control (CDC): http://wwwnc.cdc.gov/travel/yellowbook/2014/uujfumf-6-okduhiey-bpjbgrmlp-jimc-sciicjjm-need s/-travelers Or do a Google search for: CDC travel yellow book chapter 8 Screening for Gestational Diabetes is a diabetogenic event. What does that mean? It means that the changes in your body that promote also increase your body s resistance to insulin. Insulin is a hormone that moves your blood sugar into the cells, where it provides energy for that cell . Something about makes that harder to do. That raises your blood sugar levels. If the blood sugar gets too high we call it Diabetes. has its own form of diabet es, which we call Gestational Diabetes. About 10% of women will have blood sugars that are too high. We want to identify these women as soon as possible. 80% of the time it s possible to control Gestational Diabetes with some tweaks to your diet. However, some women actually will need some medication, like insulin. Between 24 and 28 weeks we do a glucose screening test on ALL women. We ll talk about this at your next visit. Weeks 18 to 22 of Your : Care Instructions Your Care Instructions Your baby is continuing to develop quickly. At this stage, babies can now suck their thumbs , batch mixer firmly with their hands, and open and close their eyelids. Sometime between 18 and 22 weeks, you will start to feel your baby move. At first, these sm all movements feel like fluttering or "butterflies." Some women say that they feel lik e gas bubbles. As the baby grows, these movements will become stronger. You may also notice that your baby kicks and hiccups. During this time, you may find that your nausea and fatigue are gone. Overall, you may feel better and have more energy than you did in your first trimester. But you may also have new discomforts now, such as sleep problems or leg cramps. This care sheet can help you ease th aleksander discomforts. Follow-up care is a elias part of your treatment and safety. Be sure to make and go to all ap pointments, and call your doctor if you are having problems. It's also a good idea to know y our test results and keep a list of the medicines you take. How can you care for yourself at home? Ease sleep problems Avoid caffeine in drinks or chocolate late in the day. Get some exercise every day. Take a warm shower or bath before bed. Have a light snack or glass of milk at bedtime. Do relaxation exercises in bed to calm your mind and body. Support your legs and back with extra pillows. Try a pillow between your legs if you sle ep on your side. Do not use sleeping pills or alcohol. They could harm your baby. Ease leg cramps Do not massage your calf during the cramp. Sit on a firm bed or chair. Straighten your leg, and bend your foot (flex your ankle) sl owly upward, toward your knee. Bend your toes up and down. Stand on a cool, flat surface. Stretch your toes upward, and take small steps walking on your heels. Use a heating pad or hot water bottle to help with muscle ache. Prevent leg cramps Be sure to get enough calcium. If you are worried that you are not getting enough, talk to your doctor. Exercise every day, and stretch your legs before bed. Take a warm bath before bed, and try leg warmers at night. Where can you learn more? To learn more about "Weeks 18 to 22 of Your : Care Instructions", log into your My Chart account at [email or web address]. You can enter W603 in the "Health Library" [facility] box. Not on MyChart? Review the MyChart section of your After Visit Summary for directions on christopher w to sign up. Current as of: June 02, 2017 Content Version: 11.7 6722-6831 [employer]. Care instructions adapted under license by [facility] [employer] [place]. If you have questions about a medical condition or this instr uction, always ask your healthcare professional. [employer] disclaims any nidia anty or liability for your use of this information. documented in this encounter Progress Notes Beka Beard MD - 02/15/2018 10:15 AM PDTPatient c/o back pain, denies leaking, bleeding, contractions. 2nd trimester ultrasound today. Has many questions about options - desires water , briefly discussed risks and benefits - discussed pain management options and position options - patient had many questions about the induction policy and rates as well as epid ural rates. Va Barnett MA - 02/15/2018 10:15 AM PDTPatent states she has started PT for her back pain. She teran s a list of questions she would like to discuss today. 1 hour handout given. Александр perez CMA documented in this encounter Plan of Treatment +--------+ + + + + | Date | Type | Specialty | Care Team | Description | +--------+ + + + + | 02/24/ | Hospital | Obstetrics & | Amy Ortiz | | | 2019 | Encounter | Gynecology | MD Sayra [address] | | | | | | , [place] [address] The | | | | | | [place] | | | | | | [address] | | | | | | [phone] | | | | | | | | +--------+ + + + + | 03/02/ | | Obstetrics & | Tika Clifford | | | 2019 | | Gynecology | MD Gold,[facility] [address] | | | | | | [place], | | | | | | [place] [address] | | | | | | [phone] | | | | | | | | +--------+ + + + + documented as of this encounter Visit Diagnoses + + | Diagnosis | + + | Encounter for supervision of normal first in second trimester - Primary | | Supervision of normal first | + + documented in this encounter
--- OUTSIDE RECORDS SUMMARY | ~2020-02-23 | XMS | Encounter Summary ---
Demographics + + + | Address | [address] | | | [place] [address] | + + + | Home Phone | | + + + | Preferred Language | Unknown | + + + | Marital Status | | + + + | Baptist Affiliation | CHR | + + + | Race | White | + + + | Ethnic Group | Not or | + + + Author + + + | Author | [facility] | + + + | Organization | [facility] | + + + | Address | Unknown | + + + | Phone | Unavailable | + + + Support + + + + + | Name | Relationship | Address | Phone | + + + + + | Bolivar Harris | ECON | [address] | | | | | [place] [address] | | + + + + + Care Team Providers + +------+ + | Care Piped Buttonhole Machine Operator Name | Role | Phone | + +------+ + | No Pcp Per Patient | PCP | Unavailable | + +------+ + Encounter Details +--------+ + + + + | Date | Type | Department | Care Team | Description | +--------+ + + + + | 02/18/ | MyChart | [place] | Beka Beard MD | RE: Ultrasound | | 2018 | Encounter | [facility] [address] | | Result | | | | E [facility] | | | | | | [address] | | | | | | [address] | | | | | | [phone] | | | +--------+ + + + [...] [place] | | | | | | [address] | | | | | | [phone] | | | | | | | | +--------+ + + + + | 03/02/ | | Obstetrics & | Tika Clifford | | | 2019 | | Gynecology | MD Gold,[address] | | | | | | [place], | | | | | | [place] [address] | | | | | | [phone] | | | | | | | | +--------+ + + + + documented as of this encounter Visit Diagnoses Not on filedocumented in this encounter"
--- OUTSIDE RECORDS SUMMARY | ~2020-02-23 | XMS | Encounter Summary ---
Demographics + + + | Address | [address] | | | [place] [address] | + + + | Home Phone [...] + + + | Author | [facility] | + + + | Organization | [facility] | + + + | Address | Unknown | + + + | Phone | Unavailable | + + + Support + + + + + | Name | Relationship | Address | Phone | + + + + + | Bolivar Harris | ECON | [address] | | | | | [place] [address] | | + + + + + Care Team Providers + +------+ + | Care Canvas Worker Apprentice Name | Role | Phone | + +------+ + | No Pcp Per Patient | PCP | Unavailable | + +------+ + Reason for Visit + + + | Reason | Comments | + + + | care | OB Intake | + + + Encounter Details +--------+ + + + + | Date | Type | Department | Care Team | Description | +--------+ + + + + | 11/20/ | | [place] | | care (OB | | 2018 | Initial | [facility] [address] | | Intake) | | | | E | | | | | | [address] | | | | | | [address] | | | | | | [phone] | | | +--------+ + + + [...] + + + | Blood Pressure | 116/65 | 11/20/2017 4:05 PM | | | [...] Weight | 69.4 kg (153 lb) | 11/20/2017 4:05 PM | | | | | PDT | | + + + + + | Height | 168 cm (5' 6.14") | 11/20/2017 4:05 PM | | | | | PDT | | + + + + + | Body Mass Index | 24.59 | 11/20/2017 4:05 PM | | | | | PDT | | + + + + + documented in this encounter Patient Instructions Patient Instructions Veda Villegas RN - 11/20/2017 3:00 PM PDTFormatting of this note mi ght be different from the original. Initial Visit Welcome to [facility] [place]! This is the first of several messages that will be a part of your After Visit Summary (AVS) . It s a long one, so take your time. We re so happy you ve chosen us to guide you t hrough your . Please read chapters 3 and 25 in your book. How do I reach my provider? Have you signed up for VHX ? It s the best way to communicate with us for your non-urgent needs. Head to this address to sign up: [email or web address] You will need the activation code you were given at your first visit, your medical record n umber, and your date of . The activation codes after 45 days. If you need a new one please ask any of our front line supervisor staff or give us a call and we can provide over the mary jo ne! We ll try hard to answer your messages within 2-3 business days. Our main phone ivan ramires is [phone]. The phone lines operate from 8:00am-5:00pm. If [...] take a second look at our Plate; Healthy Blue Print that you received at your [...] dark green, leafy vegetables, such as broccoli, richrad greens, and bok teresa ? canned sardines and salmon with bones ? tofu, almonds, and corn tortillas ? foods fortified with calcium, such as orange juice, cereals, and breads. [place]-3 Fatty Acids Polyunsaturated fatty acids of the [...] protein. Get a healthy cookie or cracker (Jar Filler Ryan bustos has a min snap cooki [...] bracelet that utilizes acupressure theory from T [facility] [employer] . These bracelets have an acupressure [...] have you talk to one of our [facility] Counselors. Some women are at a higher [...] or present disease s, in particular- rubella (luxembourgish measles), varicella (chicken pox), syphilis, HIV, and [...] Urine tests, for infection and kidney function. documented in this encounter Progress Notes Veda Villegas RN - 11/20/2017 3:00 PM PDTInitial Nurse Intake Mirna Harris is a 22 y.o., , currently at 8w6d weeks by LMP and here to establish [facility] care. Planned , here with , Bolivar for intake. Very excited about pregnan cy. LMP: Patient's last menstrual period was 09/19/2017. History of regular periods. CHANTAL: Estimated Date of Delivery: 06/26/18 Medical, surgical, family, social and OB history updated with patient. Medications and allergies reviewed. Social History/Habits: Diet: Healthy. 2-5 servings of fruits/vegs daily, no soda or caffeine, rare fast food. Dental Care: Regular dental care, last cleaning 12/2016, will schedule cleaning. Physical Activity: 2-3 x per week, walking plus active job. Discussed 30 minutes walking corie jung. 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 Home Life and Safety: Guns, aware of gun safety, SMART brochure given and discussed. No ca ts. 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 Val price's family live in [place] and Bolivar family are from [place]. They are excited about jose luis zavala job, new home, moving closer to family, and new baby. Vitals: Weight: 69.4 kg (153 lb) (11/20/17 1605) BP: 116/65 (11/20/17 1605) Body mass index is 24.59 kg/m. Education Discussed and information given: General visit schedule including lab work and diagnostic testing How/when to contact the clinic or on-call provider Genetic Screening Nutrition in , PNV, recommended weight gain and exercise Hazards: Smoking, ETOH, Drugs, Overheating, Cats Common early discomforts and relief measures Life flight Insurance Risk Factors Identified: 1. No risk factors Current concerns: 1. Mild nausea, discussed home remedies, B6 and Unisom Plan 1. Labs ordered per protocol, to be completed today at [facility]. 2. New OB appt, 12/14/2017 @ [address] Kisha MD. 3. Declines WIC, [facility] [place] and [facility] dental hygienist referrals. documented in this enc ounter Plan of Treatment +--------+ + + + + | Date | Type | Specialty | Care Team | Description | +--------+ + + + + | 02/24/ | Hospital | Obstetrics & | Amy Ortiz | | | 2019 | Encounter | Gynecology | MD Sayra [address] | | | | | | St, [facility] [address] | | | | | | [place] | | | | | | [address] | | | | | | [phone] | | | | | | | | +--------+ + + + + | 03/02/ | | Obstetrics & | Tika Clifford | | | 2020 | | Gynecology | MD Gold,[address] | | | | | | St [place], | | | | | | [place] [address] | | | | | | [phone] | | | | | | | | +--------+ + + + + documented as of this encounter Procedures + +--------+ + + + | Procedure Name | Priori | Date/Time | Associated Diagnosis | Comments | | | ty | | | | + +--------+ + + + | OUTSIDE RADIOLOGY - | | 11/18/2017 | | Results for this | | ULTRASOUND | | 12:00 AM | | procedure are in the | | | | PDT | | results section. | + +--------+ + + + documented in this encounter Results HEPATITIS C AB SCREEN, REFLEX TO RNA [...] with the values obtained with different | [facility] | | manufacturers' assay methods. | | + + + + + + + + | Performing | Address | City/State/Zipcode | Phone Number | | Organization | | | | + + + + + | [facility] | And | [place], [place] | [phone] | | MEDICAL CENTER | Streets | [address] | | + + + + + [...] | Culture ordered regardless of findings | [facility] | | | MEDICAL CENTER | + + + + + + + + | Performing | Address | City/State/Zipcode | Phone Number | | Organization | | | | + + + + + | [facility] | And [address] | [place], [place] | [phone] | | [facility] | Street | [address] | | + + + + + [...] + + + | Test performed at [facility] | [facility] | | [address] [facility] [facility] | DIAGNOSTICS - | | [place] [address] | DAVID | | Horticultural Manager ELIZABETH STEPHENS MD | | + + + + + + + + | Performing | Address | City/State/Zipcode | Phone Number | | Organization | | | | + + + + + | [facility] | [address] | [place] [address] | | | - [place] | [address] | | | + + [...] | + + + + + | [facility] | And | [place], [place] | [phone] | | [facility] | [address] | [address] | | + + + + + RUBELLA IGG AB, SERUM (11/20/2017 5:17 PM PDT) + +-------+ + + + | Component | Value | Ref Range | Performed | Pathologist | | | | | At | Signature | + +-------+ + + + | RUBELLA IGG | 124 | IU/mL | [facility] | | | AB | | | A MEDICAL | | | | | | CENTER | | + +-------+ + + + + + | Specimen | + + | Blood - Blood | | (substance) | + + + + + | Narrative | Performed At | + + + | Interpretation: <10 IU/mL Non-Reactive/Non-Immune | [facility] | | >=10-<15IU/mL EQUIVOCAL >=15 IU/mL Reactive Immune | [facility] | | The following results were obtained with the Elecsys Rubella IgG | | | assay. Results from assays of other manufacturers cannot be used | | | interchangeably. | | + + + + + + + + | Performing | Address | City/State/Zipcode | Phone Number | | Organization | | | | + + + + + | [facility] | And | [place], [place] | [phone] | | [facility] | [facility] | [address] | | + + + + + RPR SERUM (11/20/2017 5:17 PM PDT) + + + + + + | Component | Value | Ref Range | Performed | Pathologist | | | | | At | Signature | + + + + + + | RPR | Nonreactive | Nonreactive | [facility] | | | | | | [...] | + + + + + | [facility] | And [place] | [place], [place] | [phone] | | MEDICAL CENTER | Streets | [address] | | + + + + + [...] refer | | | | | | [email or web address] | | | | | | [employer].Motally/faq/[email or web address] | | | | | | 06(This [...] + + | [facility] | [address] [facility] | [place] [address] | | | - [place] | [address] [...] Elecsys HBsAg immunoassay may not be | [facility] | | used interchangeably with the values obtained with different | [facility] | | manufacturers' assay methods. | | + + + + + + + + | Performing | Address | City/State/Zipcode | Phone Number | | Organization | | | | + + + + + | [facility] | And | [place] | [phone] | | [facility] | Streets | [address] | | + + + + + [...] | - [place] | | | | Assay([employer] | | | | | | [...] + + | [facility] | [address] [facility] | [place] [address] | | | - [place] | [address] | | | + + + + + OUTSIDE RADIOLOGY - ULTRASOUND (11/18/2017 12:00 AM PDT) + + + | Narrative | Performed At | + + + | | | + + + documented in this encounter Visit Diagnoses + + | Diagnosis | + + | History of being tatooed - Primary | + + | Encounter for care in first trimester of first | + + | Vagina itching Pruritus of genital organs | + + documented in this encounter
--- OUTSIDE RECORDS SUMMARY | ~2020-02-23 | XMS | Encounter Summary ---
Demographics + + + | Address | [address] | | | [place] [address] | + + + | Home Phone | | + + + | Preferred Language | Unknown | + + + | Marital Status | | + + + | Cheondoism Affiliation | CHR | + + + | Race | White | + + + | Ethnic Group | Not or | + + + Author + + + | Author | [facility] | + + + | Organization | [facility] | + + + | Address | Unknown | + + + | Phone | Unavailable | + + + Support + + + + + | Name | Relationship | Address | Phone | + + + + + | Bolivar Harris | ECON | [address] | | | | | [place] [address] | | + + + + + Care Team Providers + +------+ + | Care Senior Marketing Specialist Name | Role | Phone | + +------+ + | No Pcp Per Patient | PCP | Unavailable | + +------+ + Reason for Visit + + + | Reason | Comments | + + + | Vaccination | | + + + Encounter Details +--------+ + + + + | Date | Type | Department | Care Team | Description | +--------+ + + + + | 04/13/ | Telephone | [place] | Beka Beard MD | Vaccination | | 2018 | | [facility] [address] | | | | | | [address] [facility] | | | | | | [address] [place], [place] | | | | | | [address] | | | | | | [phone] | | | +--------+ + + + [...] | | | | | | , [facility] [address] | | | | | | [place] | | | | | | [address] | | | | | | [phone] | | | | | | | | +--------+ + + + + | 03/02/ | | Obstetrics & | Tika Clifford | | | 2019 | | Gynecology | MD Gold,[address] | | | | | [address] [place], | | | | | | [place] [address] | | | | | | [phone] | | | | | | | | +--------+ + + + + documented as of this encounter Visit Diagnoses Not on filedocumented in this encounter"
--- OUTSIDE RECORDS SUMMARY | ~2020-02-23 | XMS | Encounter Summary ---
Demographics + + + | Address | [address] | | | [place] [address] | + + + | Home Phone | | + + + | Preferred Language | Unknown | + + + | Marital Status | | + + + | Alevism Affiliation | CHR | + + + | Race | White | + + + | Ethnic Group | Not or | + + + Author + + + | Author | [facility] | + + + | Organization | [facility] | + + + | Address | Unknown | + + + | Phone | Unavailable | + + + Support + + + + + | Name | Relationship | Address | Phone | + + + + + | Bolivar Harris | ECON | [address] | | | | | [place] [address] | | + + + + + Care Team Providers + +------+ + | Care Senior Business Development Manager Name | Role | Phone | + +------+ + | No Pcp Per Patient | PCP | Unavailable | + +------+ + Reason for Visit + + + | Reason | Comments | + + + | Lab Results | | + + + Encounter Details +--------+ + + + + | Date | Type | Department | Care Team | Description | +--------+ + + + + | 03/18/ | Telephone | [place] | Judie Higgins, | Lab Results | | 2018 | | [facility] | CNM [address] | | | | [address] | [address] | | | | | [address] [place], [place] | [place], [place] | | | | | [address] | [address] | | | | | [phone] | [phone] | | | | | | | [...] [place] | | | | | | [address] | | | | | | [phone] | | | | | | | | +--------+ + + + + | 03/02/ | | Obstetrics & | Tika Clifford | | | 2020 | | Gynecology | MD Gold,[address] | | | | | | [place], | | | | | | [place] [address] | | | | | | [phone] | | | | | | | | +--------+ + + + + documented as of this encounter Visit Diagnoses Not on filedocumented in this encounter"
--- OUTSIDE RECORDS SUMMARY | ~2020-02-23 | XMS | Encounter Summary ---
Demographics + + + | Address | [address] | | | [place] [address] | + + + | Home Phone | | + + + | Preferred Language | Unknown | + + + | Marital Status | | + + + | Cheondoism Affiliation | CHR | + + + | Race | White | + + + | Ethnic Group | Not or | + + + Author + + + | Author | [facility] | + + + | Organization | [facility] | + + + | Address | Unknown | + + + | Phone | Unavailable | + + + Support + + + + + | Name | Relationship | Address | Phone | + + + + + | Bolivar Harris | ECON | [address] | | | | | [place] [address] | | + + + + + Care Team Providers + +------+ + | Care [employer] Officer Name | Role | Phone | + +------+ + | No Pcp Per Patient | PCP | Unavailable | + +------+ + Encounter Details +--------+ + + + + | Date | Type | Department | Care Team | Description | +--------+ + + + + | 12/08/ | Telephone | [place] | Judie Higgins, | | | 2018 | | [facility] [address] | CN[address] | | | | | [address] | [address] | | | | | [place] | [place] | | | | | [address] | [address] | | | | | [phone] | [phone] | | | | | | | [...] E | | | | | | [place] [address] [address] | | | | | | [place] | | | | | | [address] | | | | | | [phone] | | | | | | | | +--------+ + + + + | 03/02/ | | Obstetrics & | Tika Clifford | | 2019 | | Gynecology | MD Gold,[facility] [address] | | | | | | [place], | | | | | | [place] [address] | | | | | | [phone] | | | | | | | | +--------+ + + + + documented as of this encounter Visit Diagnoses Not on filedocumented in this encounter"
--- OUTSIDE RECORDS SUMMARY | ~2020-02-23 | XMS | Encounter Summary ---
Demographics + + + | Address | [address] | | | [place] [address] | + + + | Home Phone | | + + + | Preferred Language | Unknown | + + + | Marital Status | | + + + | Sikhism Affiliation | CHR | + + + | Race | White | + + + | Ethnic Group | Not or | + + + Author + + + | Author | [facility] | + + + | Organization | [facility] | + + + | Address | Unknown | + + + | Phone | Unavailable | + + + Support + + + + + | Name | Relationship | Address | Phone | + + + + + | Bolivar Harris | ECON | [address] | | | | | [place] [address] | | + + + + + Care Team Providers + +------+ + | Care Rn Rehabilitation Name | Role | Phone | + +------+ + | No Pcp Per Patient | PCP | Unavailable | + +------+ + Encounter Details +--------+ + + + + | Date | Type | Department | Care Team | Description | +--------+ + + + + | 12/14/ | Hospital | Pathology at | | | | 2018 | Encounter | Medical Office | | | | | | Building [address] | | | | | | [place], | | | | | | [place] [address] | | | | | | [phone] | | | +--------+ + + + [...] + + documented as of this encounter Medications at Time of Discharge + + + +---------+ + + | Medication | Sig | Dispensed | Refills | Start | End Date | | | | | | Date | | + + + +---------+ + + | | Take 1 tablet by | 30 | 11 | 11/21/19 | | | Izodqaaz-Gf-Nly-Fe-F | mouth once daily. | tablet | | 18 | | | A oral | Indications: | | | | | | tabletIndications: | , | | | | | | , prevent | Prevention of | | | | | | neural tube | Neural Tube Defects | | | | | | defect | | | | | | + + + +---------+ + + documented as of this encounter Plan of Treatment +--------+ + + + + | Date | Type | Specialty | Care Team | Description | +--------+ + + + + | 02/24/ | Hospital | Obstetrics & | Amy Ortiz | | | 2020 | Encounter | Gynecology | MD Sayra [address] | [address], [address] | | | | | | [place], [place] | | | | | | [address] | | | | | | [phone] | | | | | | | | +--------+ + + + + | 03/02/ | | Obstetrics & | Tika Clifford | | | 2020 | | Gynecology | MD Gold,[address] | | | | | | [place], | | | | | | [place] [address] | | | | | | [phone] | | | | | | | | +--------+ + + + + documented as of this encounter Visit Diagnoses Not on filedocumented in this encounter"
--- OUTSIDE RECORDS SUMMARY | ~2020-02-23 | XMS | Encounter Summary ---
Demographics + + + | Address | [address] | | | [place] [address] | + + + | Home Phone | | + + + | Preferred Language | Unknown | + + + | Marital Status | | + + + | Nondenominational Affiliation | CHR | + + + | Race | White | + + + | Ethnic Group | Not or | + + + Author + + + | Author | [facility] | + + + | Organization | [facility] | + + + | Address | Unknown | + + + | Phone | Unavailable | + + + Support + + + + + | Name | Relationship | Address | Phone | + + + + + | Bolivar Brady | ECON | [address] | | | | | [place] [address] | | + + + + + Care Team Providers + +------+ + | Care Medical Record Consultant Name | Role | Phone | + +------+ + | No Pcp Per Patient | PCP | Unavailable | + +------+ + Encounter Details +--------+ + + + + | Date | Type | Department | Care Team | Description | +--------+ + + + + | 02/15/ | Outside | Center | [place], | | | 2018 | Referral | at [facility] [address] | MD [address] | | | | Order | [address] | | | | | | Physician's | [place] | | | | | [address], [address] | [address] | | | | | [place], [place] | [phone] | | | | | [address] | | | | | | [phone] | | | +--------+ + + + [...] E | | | | | | [facility] [address] | | | | | | [place] | | | | | | [address] | | | | | | [phone] | | | | | | | | +--------+ + + + + | 03/02/ | | Obstetrics & | Tika Clifford | | | 2020 | | Gynecology | MD Gold,[address] | | | | | | [place], | | | | | | [place] [address] | | | | | | [phone] | | | | | | | | +--------+ + + + + documented as of this encounter Results TELEMEDICINE ULTRASOUND (02/15/2018 7:41 AM PDT) + + | Specimen | + + | | + + + + + | Narrative | Performed At | + + + | [facility] | [facility] | | OBSTETRICAL ULTRASOUND REPORT | RADIOLOGY OB US | | | | | Pat. Name: LAUREANO RBADY Pat. No: [id number] Study | | | Date: 02/15/2018 8:05am , Age: 08 1995, 22 | | | Pregnancies: 1, Para 0000 LMP: Unknown GA by | | | US: 20w5d GA Selected: 21w2d (From Known E) CHANTAL: | | | 06/26/2018 Referring MD: CHE AZEVEDO Hydrate Thickener Operator: | | | MALCOLM LA, SUSANA, RVT CPT4: 12101 | | | | | | MEASUREMENTS & AGE GROWTH EVALUATION | | | Measurement GA Range Srce %for GA Ratios | | | ----- ---- ------- BPD 5.0 | | | cm 21w0d (03t0x-04q6m) Hadl BPD 44% FL/BPD 0.70 HC 18.2 cm 20w4d | | | (36b0g-55g1u) Hadl HC 30% FL/AC 0.22 AC 16.0 cm 21w1d | | | (78r9q-36a6u) Hadl AC 47% HC/AC 1.14 (1.05 - 1.24) FL 3.5 cm | | | 21w0d (94h5d-40g6z) Hadl FL 41% CI 0.78 (0.70 - 0.86) HL | | | 3.4 cm 21w4d (32l6p-30o3o) Bandar HL 55% GA for sonogram 20w5d | | | (74q4m-60l0i) Weight Estimate: based on (BPD,HC,AC,FL) | | | Hadlock Weight: 392 gm (335-449gm) Hadloc | | | : 0lbs, 13oz | | | Normal: 430 gm | | | (291-877gm) Brenne | | | Wt% 39% for 21w2d Markers for Chromosomal Abnormality: | | | NF 5.7 mm Cervix: Length: 4 cm Heart Rate: 149 bpm | | | | | | EVAL, PLACENTA Presentation: Cephalic Umbilical | | | Cord: 3 Vessels Placenta: Posterior Previa: no previa seen | | | Heart Rate: 149 bpm Gender: Male - Patient does not want to know | | | gender | | | | | | MATERNAL ANATOMY | | | | | | Ovaries LxHxW (cm) Right 2.6 x 2.4 x 3.0 Vol: 9.6cc Left 3.7 x | | | 2.2 x 1.9 Vol: 8.0cc | | | | | | Anatomy!Normal!Abnormal!Suboptimal!Prev. Seen!Comments | | | | | | Cranium ! x ! ! ! | | | ! CSP ! x ! ! ! | | | ! Falx Cerebri ! x ! ! ! | | | ! Cerebral Vent! x ! ! ! | | | ! Choroid Plexu! x ! ! ! | | | ! Cerebellum ! x ! ! ! | | | ! Cisterna Magn! x ! ! ! | | | ! Nuchal Fold ! x ! ! ! | | | ! Neck ! x ! ! ! | | | ! Nose/Lips ! x ! ! | | | ! ! Face/Profile ! x ! ! | | | ! ! Nasal Bone ! x ! ! | | | ! ! Palate/Mandib! x ! ! | | | ! ! Orbits ! x ! ! | | | ! ! Chest/Lungs/R! x ! ! | | | ! ! Cardiac [place]on/! x ! ! | | | ! ! Four Chamber ! x ! ! | | | ! ! LVOT ! x ! ! | | | ! ! RVOT ! x ! ! | | | ! ! 3 Vessel View! x ! ! | | | ! ! 3V Trachael V! x ! ! | | | ! ! IVC/SVC ! x ! | | | ! ! ! Aortic Arch ! x ! | | | ! ! ! Ductal Arch ! x ! | | | ! ! ! Diaphragm ! x ! | | | ! ! ! Stomach ! x ! | | | ! ! ! Situs ! x | | | ! ! ! ! Gallbladder ! x | | | ! ! ! ! Liver/Spleen ! x | | | ! ! ! ! Bowel ! | | | x ! ! ! ! 3VC | | | ! x ! ! ! ! Abdominal | | | Wal! x ! ! ! ! Kidneys | | | ! x ! ! ! ! Bladder | | | ! x ! ! ! ! | | | Cervical Spin! x ! ! ! ! | | | Thoracic Spin! x ! ! ! ! | | | Lumbar Spine ! x ! ! ! ! | | | Sacral Spine ! x ! ! ! ! | | | Right Humerus! x ! ! ! ! | | | Right Radius/! x ! ! ! ! | | | Right Hand ! x ! ! ! ! | | | Left Humerus ! x ! ! ! ! | | | Left Radius/U! x ! ! ! ! | | | Left Hand ! x ! ! ! | | | ! Right Femur ! x ! ! ! | | | ! Right Tibia/F! x ! ! ! | | | ! Right Foot ! x ! ! ! | | | ! Left Femur ! x ! ! ! | | | ! Left Tibia/Fi! x ! ! ! | | | ! Left Foot ! x ! ! ! | | | ! Skin ! x ! ! ! | | | ! Sex (M) ! x ! ! ! | | | ! Sex ! x ! ! | | | ! ! | | | | | | CLINICAL SUMMARY Type of Gestation: Tinsley Uterus and adnexae: | | | No abnormalities seen. There is heart motion and gross | | | movement. Ultrasound cannot detect all / abnormalities. | | | Impression: 22 year old at 21 2/7 weeks gestation with normal | | | first who presents for anatomy US. 1. Single living | | | intrauterine in cephalic presentation. 2. Posterior | | | placenta without placenta previa. 3. Growth is appropriate, | | | consistent with 21+2 weeks' gestation. 4. Normal anatomic | | | survey with no abnormalities identified. Recommendations: 1. This is | | | a remote ultrasound reading via telemedicine. 2. Follow up as | | | clinically indicated. Thank you very much for allowing us to help | | | care for your patient. If you have any questions, please feel free | | | to call our 24 hour phone consult number at any time and ask for the | | | perinatologist staff occupational therapist. [phone] or [phone] [facility] | | | TIKA Peng MD <Electronic Signature> | | | 02/15/2018 10:38am I have personally reviewed the images and, | | | if necessary, edited the report. I agree with the report as now | | | presented. | | + + + + + | Procedure Note | + + | Service Account, Radiant Res In Interface - 02/15/2018 10:38 AM PDT | | [facility] OBSTETRICAL ULTRASOUND | | REPORT Pat. Name: | | LAUREANO BRADY RIANPat. No: [id number] Date: 02/15/2018 8:05amDOB, Age: | | 1995, 22Pregnancies: 1, Para 0000LMP: UnknownGA by US: | | [id number] Selected: 21w2d (From Known E)CHANTAL: 06/26/2018Referring MD: | | LINDSEY ANALENESonographer: MALCOLM LA, SUSANA, RVTCPT4: | | [id number] | | & AGE GROWTH EVALUATIONMeasurement GA Range Srce %for | | GA Ratios ----- ---- ------- BPD 5.0 | | cm 21w0d (89b2s-49i9t) Hadl BPD 44% FL/BPD 0.70HC 18.2 cm 20w4d (53o5b-09i0n) Hadl HC | | 30% FL/AC 0.22AC 16.0 cm 21w1d (03j9d-02g0b) Hadl AC 47% HC/AC 1.14 (1.05 - 1.24)FL | | 3.5 cm 21w0d (13z7j-37c4m) Hadl FL 41% CI 0.78 (0.70 - 0.86)HL 3.4 cm 21w4d | | (87a2t-17i4y) Bandar HL 55%GA for sonogram 20w5d (47r3b-96b7c) Weight | | Estimate:based on (BPD,HC,AC,FL) Hadlock Weight: 392 gm (335-449gm) Hadloc | | : 0lbs, 13oz | | Normal: 430 gm (291-877gm) Brenne Wt% 39% for | | 39q8pVkvgqtr for Chromosomal Abnormality:NF 5.7 mmCervix: Length: 4 cmFetal Heart | | Rate: 149 | | bpm | | EVAL, PLACENTAPresentation: CephalicUmbilical Cord: 3 VesselsPlacenta: PosteriorPrevia: | | no previa seenFetal Heart Rate: 149 bpmGender: Male - Patient does not want to know | | gender MATERNAL | | ANATOMY Ovaries | | LxHxW (cm)Right 2.6 x 2.4 x 3.0 Vol: 9.6cc Left 3.7 x 2.2 x 1.9 Vol: 8.0cc | | | | Anatomy!Normal!Abnormal!Suboptimal!Prev. | | Seen!Comments Crani | | um ! x ! ! ! !CSP ! x ! ! ! | | !Falx Cerebri ! x ! ! ! !Cerebral Vent! x ! | | ! ! !Choroid Plexu! x ! ! ! | | !Cerebellum ! x ! ! ! !Cisterna Magn! x ! ! | | ! !Nuchal Fold ! x ! ! ! !Neck ! x | | ! ! ! !Nose/Lips ! x ! ! ! | | !Face/Profile ! x ! ! ! !Nasal Bone ! x ! ! | | ! !Palate/Mandib! x ! ! ! !Orbits ! x | | ! ! ! !Chest/Lungs/R! x ! ! ! | | !Cardiac Trenton/! x ! ! ! !Four Chamber ! x ! ! | | ! !LVOT ! x ! ! ! !RVOT ! x | | ! ! ! !3 Vessel View! x ! ! ! !3V | | Trachael V! x ! ! ! !IVC/SVC ! x ! ! | | ! !Aortic Arch ! x ! ! ! !Ductal Arch ! x ! | | ! ! !Diaphragm ! x ! ! ! !Stomach | | ! x ! ! ! !Situs ! x ! ! ! | | !Gallbladder ! x ! ! ! !Liver/Spleen ! x ! | | ! ! !Bowel ! x ! ! ! !3VC | | ! x ! ! ! !Abdominal Wal! x ! ! ! | | !Kidneys ! x ! ! ! !Bladder ! x ! ! | | ! !Cervical Spin! x ! ! ! !Thoracic Spin! | | x ! ! ! !Lumbar Spine ! x ! ! ! | | !Sacral Spine ! x ! ! ! !Right Humerus! x ! ! | | ! !Right Radius/! x ! ! ! !Right Hand ! x | | ! ! ! !Left Humerus ! x ! ! ! | | !Left Radius/U! x ! ! ! !Left Hand ! x ! ! | | ! !Right Femur ! x ! ! ! !Right Tibia/F! x | | ! ! ! !Right Foot ! x ! ! ! | | !Left Femur ! x ! ! ! !Left Tibia/Fi! x ! ! | | ! !Left Foot ! x ! ! ! !Skin ! x | | ! ! ! !Sex (M) ! x ! ! ! !Sex | | ! x ! ! ! | | ! CLINICAL | | SUMMARYType of Gestation: SingletonUterus and adnexae: No abnormalities seen.There is | | heart motion and gross movement.Ultrasound cannot detect all / | | abnormalities.Impression: 22 year old at 21 2/7 weeks gestation with normal first | | who presents for anatomy US.1. Single living intrauterine in | | cephalic presentation.2. Posterior placenta without placenta previa. 3. Growth is | | appropriate, consistent with 21+2 weeks' gestation.4. Normal anatomic survey with | | no abnormalities identified.Recommendations:1. This is a remote ultrasound reading via | | telemedicine.2. Follow up as clinically indicated.Thank you very much for allowing us to | | help care for your patient. If you have any questions, please feel free to call our 24 | | hour phone consult number at any time and ask for the perinatologist staff occupational therapist. | | [phone] or [phone], KATHLEEN F, | | <Electronic Signature> 02/15/2018 10:38amI have personally | | reviewed the images and, if necessary, edited the report. I agree with the report as | | now presented. | |Diaphragm ! x ! ! ! ! | |Stomach ! x ! ! ! ! | |Situs ! x ! ! ! ! | |Gallbladder ! x ! ! ! ! | |Liver/Spleen ! x ! ! ! ! | |Bowel ! x ! ! ! ! | |3VC ! x ! ! ! ! | |Abdominal Wal! x ! ! ! ! | |Kidneys ! x ! ! ! ! | |Bladder ! x ! ! ! ! | |Cervical Spin! x ! ! ! ! | |Thoracic Spin! x ! ! ! ! | |Lumbar Spine ! x ! ! ! ! | |Sacral Spine ! x ! ! ! ! | |Right Humerus! x ! ! ! ! | |Right Radius/! x ! ! ! ! | |Right Hand ! x ! ! ! ! | |Left Humerus ! x ! ! ! ! | |Left Radius/U! x ! ! ! ! | |Left Hand ! x ! ! ! ! | |Right Femur ! x ! ! ! ! | |Right Tibia/F! x ! ! ! ! | |Right Foot ! x ! ! ! ! | |Left Femur ! x ! ! ! ! | |Left Tibia/Fi! x ! ! ! ! | |Left Foot ! x ! ! ! ! | |Skin ! x ! ! ! ! | |Sex (M) ! x ! ! ! ! | |Sex ! x ! ! ! ! | | | |CLINICAL SUMMARY | |Type of Gestation: Tinsley | |Uterus and adnexae: No abnormalities seen. | |There is heart motion and gross movement. | |Ultrasound cannot detect all / abnormalities. | |Impression: 22 year old at 21 2/7 weeks gestation with normal | |first who presents for anatomy US. | |1. Single living intrauterine in cephalic presentation. | |2. Posterior placenta without placenta previa. | |3. Growth is appropriate, consistent with 21+2 weeks' gestation. | |4. Normal anatomic survey with no abnormalities identified. | |Recommendations: | |1. This is a remote ultrasound reading via telemedicine. | |2. Follow up as clinically indicated. | |Thank you very much for allowing us to help care for your patient. | |If you have any questions, please feel free to call our 24 hour | |phone consult number at any time and ask for the perinatologist on | |call. [phone] or [phone] | |TIKA GHOTRA MD | | | |<Electronic Signature> 02/15/2018 10:38am | | | | | |I have personally reviewed the images and, if necessary, edited the report. I agree with t he report as now presented. | + + + +---------+ + + | Performing | Address | City/State/Zipcode | Phone Number | | Organization | | | | + +---------+ + + | [facility] | | | | | [place] | | | | + +---------+ + + documented in this encounter Visit Diagnoses + + | Diagnosis | + + | screening for malformation using ultrasonics - Primary Encounter for | | routine screening for malformation using ultrasonics | + + documented in this encounter"
--- OUTSIDE RECORDS SUMMARY | ~2020-02-23 | XMS | Encounter Summary ---
Demographics + + + | Address | [address] | | | [place] [address] | + + + | Home Phone | | + + + | Preferred Language | Unknown | + + + | Marital Status | | + + + | Moravian Affiliation | CHR | + + + | Race | White | + + + | Ethnic Group | Not or | + + + Author + + + | Author | [facility] | + + + | Organization | [facility] | + + + | Address | Unknown | + + + | Phone | Unavailable | + + + Support + + + + + | Name | Relationship | Address | Phone | + + + + + | Bolivar Harris | ECON | [address] | | | | | [place] [address] | | + + + + + Care Team Providers + +------+ + | Care Toilet Attendant Name | Role | Phone | + +------+ + | No Pcp Per Patient | PCP | Unavailable | + +------+ + Encounter Details +--------+ + + + + | Date | Type | Department | Care Team | Description | +--------+ + + + + | 12/15/ | MyChart | [facility] | Beka Beard MD | RE: Chiropractor | | 2018 | Encounter | [facility] [address] | | | | | | E [facility] | | | | | | [address] [place] | | | | | | [address] | | | | | | [phone] | | | +--------+ + + + [...] [place] | | | | | | [address] | | | | | | [phone] | | | | | | | | +--------+ + + + + | 03/02/ | | Obstetrics & | Tika Clifford | | | 2019 | | Gynecology | MD Gold,[facility] [address] | | | | | | [place], | | | | | | [place] [address] | | | | | | [phone] | | | | | | | | +--------+ + + + + documented as of this encounter Visit Diagnoses Not on filedocumented in this encounter"
--- OUTSIDE RECORDS SUMMARY | ~2020-02-23 | XMS | Encounter Summary ---
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 [employer] [address] | | | | | joints Back | [address] | [address] | | | | | pain, | [place], [place] | [place], [place] | | | | | unspecified | [address] | [address] | | | | | back | Phone: | | | | | | location, | [phone] | | | | | | unspecified | Fax: | | | | | | back pain | [phone] | | | | | | laterality, [...] Description | +--------+---------+ + + + | 03/17/ | Office | Outpatient Therapy | Jessica Hough, | Sacroiliac | | 2017 | Visit | at [facility] | PT,DPT [address] | dysfunction (Primary | | | | [address] | [address] [place] | Dx); Pelvic girdle | | | | [place], [place] | [address] | weakness | | | | [address] | | | | | | [phone] | | | +--------+---------+ + + + [...] encounter Progress Notes Jessica Hough PT,DPT - 03/17/2018 3:00 PM PDTFormatting of this note might be [...] scale of 1-10 SUBJECTIVE: Patient states that her nausea is better today OBJECTIVE: Aquatic therapy progression in the [facility] pool for reduced water temperature for sa fety, with therapist instructing patient from the deck for the utilization of warm water, hy drostatic pressure, and buoyancy for pain relief, strengthening, and normalization of gait, and movement patterns TREATMENT: Aquatic Therapeutic Exercise: Walk 3 way- 2 laps each added dumbbells to walking Kickboard: prone kick 2 laps, push pull, prayer hand press down, UTR Medium Dumbbell: punch +Lunge, squat + fly Noodle: frog leg supine kick 1 lap, prone plank reverse push up Stretch: HS, ADD, HF Home exercise program: continue with exercises per last visit Patient Education: Pt is having her 1 hr GTT right after therapy today. Pt instructed to al ert OBGYN, as sugar may go quite low afterwards. ASSESSMENT: Patient tolerates aquatic therapy well. No adverse reactions. Pt has reduced pain in the mi ter, and this will likely continue to be a good environment to treat her in. Plan for next visit: Progress core strength. PLAN OF CARE: Frequency and Duration: 1x a week for remainder of with follow up at 4-6 weeks po stpartum as well Interventions: Manual Therapy Orthotic fitting Gait training Aquatic Therapy Therapeutic exercise Neuromuscular re-ed PT re-eval Therapeutic Activities Orthotic/Prosthetic Check Physical Therapist Wood Tool Maker may be involved in this care, as determined appropriate by the Physical Therapist This note will serve as an episode of care discharge summary if the patient does not return to this facility for any future visits or receive any further treatment for this episode. Jessica Hough, PT,DPT CAPP-Certificate [facility] Physical Therapy OUTPATIENT THERAPY AT [address] [place] [address] documented in this en counter Plan of [...] [place] | | | | | | [address] | | | | | | [phone] | | | | | | | | +--------+ + + + + | 03/02/ | | Obstetrics & | Tika Clifford | | | 2019 | | Gynecology | MD Gold,[address] | | | | | | [place], | | | | | | [place] [address] | | | | | | [phone] | | | | | | | | +--------+ + + + + documented as of this encounter Visit Diagnoses + + | Diagnosis | + + | Sacroiliac dysfunction - Primary Disorders of sacrum | + + | Pelvic girdle weakness | + + documented in this encounter"
--- OUTSIDE RECORDS SUMMARY | ~2020-02-23 | XMS | Encounter Summary ---
Demographics + + + | Address | [address] | | | [place] [address] | + + + | Home Phone | | + + + | Preferred Language | Unknown | + + + | Marital Status | | + + + | Shinto Affiliation | CHR | + + + [...] + | Bolivar Harris | ECON | [address] | | | | | [place] [address] | | + + + + + Care Team Providers + +------+ + | Care Stone Polisher Hand Name | Role | Phone | + [...] | | | | both hip | ACETYLENE OPERATOR [address] | | | | | joints Back | [address] | [address] | | | | | pain, | [place], [place] | [place], [place] | | | | | unspecified | [address] | [address] | | | | | back | Phone: | | | | | | location, | [phone] | | | | | | unspecified | Fax: | | | | | | back pain | [phone] | | | | | | laterality, [...] Description | +--------+---------+ + + + | 03/11/ | Office | Outpatient Therapy | Jessica Hough, | Sacroiliac | | 2017 | Visit | at [facility] | PT,DPT [address] | dysfunction (Primary | | | | [address] | [address] [place] | Dx); Pelvic girdle | | | | [place], [place] | [address] | weakness | | | | [address] | | | | | | [phone] | | | +--------+---------+ + + + [...] encounter Progress Notes Jessica Hough PT,DPT - 03/11/2018 8:30 AM PDTFormatting of this note might be [...] M53.3 Sacroiliac dysfunction R29.898 Pelvic girdle weakness HISTORY OF PRESENT ILLNESS: Mirna Harris is [...] of 1-10 SUBJECTIVE: Patient states that she has become nauseous in the last week and has not been able to do he r HEP. 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 24 weeks OBJECTIVE: Overall not appearing to be feeling well TREATMENT: Therapeutic Exercise: Bird dog Hip clocks - Green TB Monster walks Green TB Lunge with 6# med ball Home exercise program: Bird dog Hip clocks - Green TB Monster walks Green TB Lunge Patient Education:encouaged walking and activity as tolerated due to nausea ASSESSMENT: Patient's overall pain is doing better but she is experiencing 2nd trimester nausea that is affecting her ability to participate in her HEP. She will benefit from gentle exzercise as tolerated to continue to maintain strength and reduce symptoms Plan for next visit: Continue with primary PT plan of care. Progress core strength. PLAN OF CARE: Frequency and Duration: 1x a week for remainder of with follow up at 4-6 weeks po stpartum as well Interventions: Manual Therapy Orthotic fitting Gait training Aquatic Therapy Therapeutic exercise Neuromuscular re-ed PT re-eval Therapeutic Activities Orthotic/Prosthetic Check Physical Therapist Trouble Shooter may be involved in this care, as determined appropriate by the Physical Therapist This note will serve as an episode of care discharge summary if the patient does not return to this facility for any future visits or receive any further treatment for this episode. Jessica Hough PT,DPT CAPP-Certificate Pelvic Health Physical Therapy OUTPATIENT THERAPY AT [address] [place] [phone] documented in this en counter Plan of Treatment +--------+ + + + + | Date | Type | Specialty | Care Team | Description | +--------+ + + + + | 02/24/ | Hospital | Obstetrics & | Amy Ortiz | | | 2019 | Encounter | Gynecology | MD Sayra [address] | | | | | | , [facility] [address] | | | | | | [place] | | | | | | [address] | | | | | | [phone] | | | | | | | | +--------+ + + + + | 03/02/ | | Obstetrics & | Tika Clifford | | | 2020 | | Gynecology | MD Gold,[facility] [address] | | | | | | St [place], | | | | | | [place] [address] | | | | | | [phone] | | | | | | | | +--------+ + + + + documented as of this encounter Visit Diagnoses + + | Diagnosis | + + | Sacroiliac dysfunction - Primary Disorders of sacrum | + + | Pelvic girdle weakness | + + documented in this encounter"
--- OUTSIDE RECORDS SUMMARY | ~2020-02-23 | XMS | Encounter Summary ---
Demographics + + + | Address | [address] | | | [place] [address] | + + + | Home Phone | | + + + | Preferred Language | Unknown | + + + | Marital Status | | + + + | Latter Day Affiliation | CHR | + + + [...] + | Bolivar Harris | ECON | [address] | | | | | [place] [address] | | + + + + + Care Team Providers + +------+ + | Care Senior Control Systems Engineer Name | Role | Phone | + +------+ + | No Pcp Per Patient | PCP | Unavailable | + +------+ + Reason for Visit + + + | Reason | Comments | + + + | UTI - Urinary tract | | | infection | | + + + Encounter Details +--------+ + + + + | Date | Type | Department | Care Team | Description | +--------+ + + + + | 11/22/ | Telephone | [facility] | Beka Beard MD | UTI - Urinary tract | | 2018 | | [facility] [address] | | infection | | | | [address] | | | | | | [address] [place], [place] | | | | | | [address] | | | | | | [phone] | | | +--------+ + + + [...] [place] | | | | | | [address] | | | | | | [phone] | | | | | | | | +--------+ + + + + | 03/02/ | | Obstetrics & | Tika Clifford | | | 2019 | | Gynecology | MD Gold,[address] | | | | | | [place], | | | | | | [place] [address] | | | | | | [phone] | | | | | | | | +--------+ + + + + documented as of this encounter Visit Diagnoses Not on filedocumented in this encounter"
--- OUTSIDE RECORDS SUMMARY | ~2020-02-23 | XMS | Encounter Summary ---
Demographics + + + | Address | [address] | | | [place] [address] | + + + | Home Phone | | + + + | Preferred Language | Unknown | + + + | Marital Status | | + + + | Sabianism Affiliation | CHR | + + + [...] + | Bolivar Harris | ECON | [address] | | | | | [place] [address] | | + + + + + Care Team Providers + +------+ + | Care Onion Tier Name | Role | Phone | + +------+ + | No Pcp Per Patient | PCP | Unavailable | + +------+ + Encounter Details +--------+------+ + + + | Date | Type | Department | Care Team | Description | +--------+------+ + + + | 03/17/ | Lab | Laboratory at | | Diabetes mellitus | | 2018 | | [facility] | | screening; Screening | | | | Center [address] | | for deficiency | | | | [place], [place] | | anemia | | | | [address] | | | | | | [phone] | | | +--------+------+ + + + Social History [...] E | | | | | | [facility] [address] | | | | | | [place], [place] | | | | | | [address] | | | | | | [phone] | | | | | | | | +--------+ + + + + | 03/02/ | | Obstetrics & | Tika Clifford | | | 2019 | | Gynecology | MD Gold,[facility] [[email or web address] [address] | | | | | | [place], | | | | | | [place] [address] | | | | | | [phone] | | | | | | | | +--------+ + + + + documented as of this encounter Procedures + +--------+ + + + | Procedure Name | Priori | Date/Time | Associated Diagnosis | Comments | | | ty | | | | + +--------+ + + + | CBC ONLY | Routin | 03/17/2018 | Screening for | Results for this | | | e | 5:25 PM | deficiency anemia | procedure are in the | | | | PDT | | results section. | + +--------+ + + + | CBC (HEMOGRAM ONLY) | Routin | 03/17/2018 | Screening for | Results for this | | | e | 5:25 PM | deficiency anemia | procedure are in the | | | | PDT | | results section. | + +--------+ + + + | GLUCOSE TOLERANCE | Routin | 03/17/2018 | Diabetes mellitus | Results for this | | TEST, 1 HOUR | e | 5:25 PM | screening | procedure are in the | | | | PDT | | results section. | + +--------+ + + + documented in this encounter Results CBC ONLY (03/17/2018 5:25 PM PDT) + + + + + + | Component | Value | Ref Range | Performed | Pathologist | | | | | At | Signature | + + + + + + | WBC COUNT | 11.4 (H) | 3.5 - 10.8 K/cu | [facility] | | | | | mm | A [facility] | | | | | | CENTER | | + + + + + + | RED CELL | 4.45 | 4.00 - 5.20 | [facility] | | | COUNT | | M/cu mm | A MED[facility] | | | | | | CENTER | | + + + + + + | HEMOGLOBIN | 12.4 | 12.0 - 16.0 | [facility] | | | | | g/dL | A MED[facility] | | | | | | CENTER | | + + + + + + | HEMATOCRIT | 36.1 | 36.0 - 46.0 % | [facility] | | | | | | A MED[facility] | | | | | | CENTER | | + + + + + + | MCV | 81.1 | 80.0 - 96.0 fL | [facility] | | | | | | A MEDICAL | | | | | | CENTER | | + + + + + + | MCH | 27.9 (L) | 28.0 - 34.7 pg | [facility] | | | | | | A MEDICAL | | | | | | CENTER | | + + + + + + | MCHC | 34.4 | 33.0 - 35.5 | [facility] | | | | | g/dL | A MEDICAL | | | | | | CENTER | | + + + + + + | RDW | 14.3 | 11.5 - 15.0 % | [facility] | | | | | | A [facility]ICAL | | | | | | CENTER | | + + + + + + | PLATELET | 308 | 150 - 400 K/cu | [facility] | | | COUNT | | mm | A MEDICAL | | | | | | CENTER | | + + + + + + | MPV | 7.6 | 7.5 - 11.2 fL | [facility] [...] reflex rules apply to this test. | [facility] | | | [facility] | + + + + + + + + | Performing | Address | City/State/Zipcode | Phone Number | | Organization | | | | + + + + + | [facility] | And | [place] | [phone] | | [facility] | [facility] | [address] | | + + + + + GLUCOSE TOLERANCE TEST, 1 HOUR (03/17/2018 5:25 PM PDT) + +-------+ + + + | Component | Value | Ref Range | Performed | Pathologist | | | | | At | Signature | + +-------+ + + + | 1 HOUR | 87 | <130 mg/dL | [facility] | | | GLUCOSE - | | [...] for the diagnosis of gestational diabetes | [facility] | | only. | MEDICAL CENTER | + + + + + + + + | Performing | Address | City/State/Zipcode | Phone Number | | Organization | | | | + + + + + | [facility] | [place] | [place], [place] | [phone] | | MEDICAL CENTER | [facility] | [address] | | + + + + + documented in this encounter Visit Diagnoses + + | Diagnosis | + + | Diabetes mellitus screening Screening for diabetes mellitus | + + | Screening for deficiency anemia Screening for other and unspecified deficiency anemia | + + documented in this encounter"
--- OUTSIDE RECORDS SUMMARY | ~2020-02-23 | XMS | Encounter Summary ---
Demographics + + + | Address | [address] | | | [place] [address] | + + + | Home Phone | | + + + | Preferred Language | Unknown | + + + | Marital Status | | + + + | Confucianist Affiliation | CHR | + + + [...] + | Bolivar Harris | ECON | [address] | | | | | [place] [address] | | + + + + + Care Team Providers + +------+ + | Care Woven Label Designer Name | Role | Phone | + [...] | | | | both hip | PURIFICATION SUPERVISOR [address] | [address] | | | | | joints Back | [address] | [address] | | | | | pain, | [place], [place] | [place], [place] | | | | | unspecified | [address] | [address] | | | | | back | Phone: | | | | | | location, | [phone] | | | | | | unspecified | Fax: | | | | | | back pain | [phone] | | | | | | laterality, [...] Description | +--------+---------+ + + + | 02/11/ | Office | Outpatient Therapy | Jessica Hough, | Sacroiliac | | 2018 | Visit | at [facility] | PT,DPT [address] | dysfunction (Primary | | | | [address] | St [place], [place] | Dx); Pelvic girdle | | | | [place], [place] | [address] | weakness | | | | [address] | | | | | | [phone] | | | +--------+---------+ + + + [...] encounter Progress Notes Jessica Hough, PT,DPT - 02/11/2018 10:45 AM PDTFormatting of this note might be different fro m the original. PHYSICAL THERAPY INITIAL EVALUATION Referred by: Sharon Farley FNP Referral Diagnosis: [...] level: 2/10 on a scale of 1-10 General Health: Good Past Medical History: Past Medical History: Diagnosis Date Acute cystitis with hematuria 05/02/2016 Hx cystitis x 2, discussed prevention and s/s to report Asthma Since childhood, no current inhaler or medication use Past Surgical History Procedure Laterality Date Cholecystectomy 2014 Follows low fat diet post-op MEDICATIONS: Current Medication List Name Sig DOXYLAMINE SUCCINATE 25 MG TABLET Take 0.5 tablets by mouth once daily at bedtime. May add 1/2 tablet in the morning if needed Indications: Nausea Gravidarum LEVALBUTEROL HFA 45 MCG/ACTUATION AEROSOL INHALER Inhale 1-2 puffs by mouth every six hours as needed (SOB, wheezing, cough). VITAMIN,CALCIUM,[id number] ACID TABLET Take 1 tablet by mouth once daily. Indications: , Prevention of Neural Tube Defects PYRIDOXINE (VITAMIN B6) 25 MG TABLET Take 1 tablet by mouth once daily. Take 25 mg at bedti me and may add 25 mg in the morning Indications: Nausea Gravidarum SYSTEM REVIEW: Musculoskeletal: indicated Neurological: indicated Cardiopulmonary: not indicated Integumentary:not indicated OUTCOME SURVEY: Modifed Oswestry Pain Intensity: 0 - I can tolerate the pain I have without having to use medication. Personal Care (Washing, Dressing, etc.): 0 - I can take care of myself normally without cau sing increased pain. Liftin - Pain prevents me from lifting heavy weights off the floor, but I can manage if the weights are conveniently positioned. Walkin - Pain prevents me walking more than 1 mile. Sittin - I can only sit in my favorite chair for as long as I like. Standin - I can stand as long as I want, but it increases pain. Sleepin - Pain does not prevent me from sleeping well. Social Life: 1 - My social life is normal, but it increases my level of pain. Travelin - I can travel anywhere, but it increases my pain. Employment/homemakin - My normal homemaking/job activities increase my pain, but I can still perfom all that is required of me. Questionnaire Total: 8 Oswestry Percent of Disability/Impairment (MCID reduction of 12%): 16 % OBJECTIVE: Critical behavior/cognitive status:NAD, WNL Pelvic alignment: L innominate elevated with R innominate posterior. Corrected with seated pelvic MET Posterior lateral hip strength: poor 3/5 for hip ABD, and 4/5 for hip ER SIJ provocation tests: all positive L >R Bilateral navicular drop, over pronation and loss of medial arch height. B knee valgus and recurvatum TREATMENT: Pelvic MET - sitting Kegels: strength, endurance, and The Knack Pt fit for Medium Serola Belt to wear low at Pubic symphysis. 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 Patient to wear belt as need for SIJ stability antepartum and post ASSESSMENT: Mirna Harris is a 22 y.o. F who presents with findings consistent with bilateral sacr oiliac joint dysfunction and instability leading to pelvic girdle weakness exacerbated by he r current . The patient's impairments include pain with walking, single leg or almeida sitional movements, and pain with standing. She also presents with bilateral dropped medial arch support and would benefit from orthotics fabrication for ground up support to the pelvi c girdle. . The plan is to address the above impairments with skilled physical therapy focus ed on manual therapy, therapeutics exercise, orthotics fabrication, and potentially aquatic therapy . Comorbid conditions that may influence the plan of care: none The patient's prognosis for meeting goals is good based on clinical findings. Plan next visit: review HEP and progress core strength GOALS: Short Term Goals: Goal Description Time Status Data/Notes Pt will be independent with progressive HEP for strengthening and stretching of her core, h ips, and trunk, 4 weeks New Pt will demonstrate full forward trunk flexion without pain. 4 weeks New Industrial Equipment Mechanic Goals: Goal Description Time Status Data/Notes Pt will maintain level pelvis without obliquity as evident by her ability to perform self m obilizations as needed 8 weeks New Pt will report being able to carry grocery bag or laundry basket without pelvic/SIJ pain gr eater than 2/10 8 weeks New PLAN OF CARE: Frequency and Duration: 1x a week for remainder of with follow up at 4-6 weeks po stpartum as well Interventions: Manual Therapy Orthotic fitting Gait training Aquatic Therapy Therapeutic exercise Neuromuscular re-ed PT re-eval Therapeutic Activities Orthotic/Prosthetic Check Physical Therapist Building Supervisor may be involved in this care, as determined appropriate by the Physical Therapist This note will serve as an episode of care discharge summary if the patient does not return to this facility for any future visits or receive any further treatment for this episode. JESSICA HOUGH PT,DPT OUTPATIENT THERAPY AT [address] [place] [address] documented in this en counter Plan of Treatment +--------+ + + + + | Date | Type | Specialty | Care Team | Description | +--------+ + + + + | 02/24/ | Hospital | Obstetrics & | Amy Ortiz | | | 2019 | Encounter | Gynecology | MD Sayra [address] | | | | | | , The | | | | | | [place] | | | | | | [address] | | | | | | [phone] | | | | | | | | +--------+ + + + + | 03/02/ | | Obstetrics & | Tika Clifford | | | 2019 | | Gynecology | MD Gold,[address] | | | | | | [place], | | | | | | [place] [address] | | | | | | [phone] | | | | | | | | +--------+ + + + + documented as of this encounter Visit Diagnoses + + | Diagnosis | + + | Sacroiliac dysfunction - Primary Disorders of sacrum | + + | Pelvic girdle weakness | + + documented in this encounter
--- OUTSIDE RECORDS SUMMARY | ~2020-02-23 | XMS | Encounter Summary ---
Demographics + + + | Address | [address] | | | [place] [address] | + + + | Home Phone | | + + + | Preferred Language | Unknown | + + + | Marital Status | | + + + | Zoroastrianism Affiliation | CHR | + + + | Race | White | + + + | Ethnic Group | Not or | + + + Author + + + | Author | [facility] | + + + | Organization | [facility] | + + + | Address | Unknown | + + + | Phone | Unavailable | + + + Support + + + + + | Name | Relationship | Address | Phone | + + + + + | Bolivar Harris | ECON | [address] | | | | | [place] [address] | | + + + + + Care Team Providers + +------+ + | Care Washing Machine Assembler Name | Role | Phone | + [...] | | | [address] | [address] | | | | | [place], [place] | [phone] | | | | | [address] | | | | | | [phone] | | | +--------+ + + + [...] E | | | | | | [facility] [address] | | | | | | [place] | | | | | | [address] | | | | | | [phone] | | | | | | | | +--------+ + + + + | 03/02/ | | Obstetrics & | Tika Clifford | | | 2020 | | Gynecology | MD Gold,[address] | | | | | | St [place], | | | | | | [place] [address] | | | | | | [phone] | | | | | | | | +--------+ + + + + documented as of this encounter Visit Diagnoses + + | Diagnosis | + + | screening for malformation using ultrasonics - Primary Encounter for | | routine screening for malformation using ultrasonics | + + documented in this encounter"
--- OUTSIDE RECORDS SUMMARY | ~2020-02-23 | XMS | Encounter Summary ---
Demographics + + + | Address | [address] | | | [place] [address] | + + + | Home Phone | | + + + | Preferred Language | Unknown | + + + | Marital Status | | + + + | Buddhism Affiliation | CHR | + + + | Race | White | + + + | Ethnic Group | Not or | + + + Author + + + | Author | [facility] | + + + | Organization | [facility] | + + + | Address | Unknown | + + + | Phone | Unavailable | + + + Support + + + + + | Name | Relationship | Address | Phone | + + + + + | Bolivar Brady | ECON | [address] | | | | | [place] [address] | | + + + + + Care Team Providers + +------+ + | Care Cooler Service Supervisor Name | Role | Phone | + +------+ + | No Pcp Per Patient | PCP | Unavailable | + +------+ + Reason for Visit Maternity Services (Routine) +--------+--------+ + + + + | Status | Reason | Specialty | Diagnoses / | Referred By | Referred To | | | | | Procedures | Contact | Contact | +--------+--------+ + + + + | Closed | | | Diagnoses | | Pnc Us | | | | | Supervision | Lindsey, | Telemedicine | | | | | of high | MD Che | [address] | | | | | risk | [address] | | | | | | Jimmy | [place], | | | | | | [place] | [place] | | | | | | [place] | [address] | | | | | | [address] | Phone: | | | | | | Phone: | [phone] | | | | | | [phone] | Fax: | | | | | | Fax: | [phone] | | | | | | [phone] | | +--------+--------+ + + + + Encounter Details +--------+ + + + + | Date | Type | Department | Care Team | Description | +--------+ + + + + | 02/15/ | Procedure-E | Perinatology | | | | 2017 | CX | Telemedicine [address] | | | | | | [facility] [address] | | | | | | [place] | | | | | | [address] | | | | | | [phone] | | | +--------+ + + + [...] | | | | | | St, [facility] [address] | | | | | | [place], [place] | | | | | | [address] | | | | | | [phone] | | | | | | | | +--------+ + + + + | 03/02/ | | Obstetrics & | Tika Clifford | | | 2019 | | Gynecology | MD Gold,S [address] | | | | | St [place], | | | | | | [place] [address] | | | | | | [phone] | | | | | | | | +--------+ + + + + documented as of this encounter Procedures + +--------+ + + + | Procedure Name | Priori | Date/Time | Associated Diagnosis | Comments | | | ty | | | | + +--------+ + + + | TELEMEDICINE | Routin | 02/15/2018 | | Results for this | | ULTRASOUND | e | 7:41 AM | screening for | procedure are in the | | | | PDT | malformation using | results section. | | | | | ultrasonics | | + +--------+ + + + documented in this encounter Results TELEMEDICINE ULTRASOUND (02/15/2018 7:41 AM PDT) + + | Specimen | + + | | + + + + + | Narrative | Performed At | + + + | [facility] | [facility] | | OBSTETRICAL ULTRASOUND REPORT | RADIOLOGY OB US | | | | | Pat. Name: LAUREANO BRADY Pat. No: [id number] Study | | | Date: 02/15/2018 8:05am , Age: 08 1995, 22 | | | Pregnancies: 1, Para 0000 LMP: Unknown GA by | | | US: 20w5d GA Selected: 21w2d (From Known E) CHANTAL: | | | 06/26/2018 Referring MD: CHE AZEVEDO Lumber Marker: | | | MALCOLM LA, SUSANA, RVT CPT4: 49284 | | | | | | MEASUREMENTS & AGE GROWTH EVALUATION | | | Measurement GA Range Srce %for GA Ratios | | | ----- ---- ------- BPD 5.0 | | | cm 21w0d (43i2m-46s3y) Hadl BPD 44% FL/BPD 0.70 HC 18.2 cm 20w4d | | | (09c1j-48r1w) Hadl HC 30% FL/AC 0.22 AC 16.0 cm 21w1d | | | (67f0y-30y5r) Hadl AC 47% HC/AC 1.14 (1.05 - 1.24) FL 3.5 cm | | | 21w0d (50d7s-96f0h) Hadl FL 41% CI 0.78 (0.70 - 0.86) HL | | | 3.4 cm 21w4d (21f0a-47y0t) Bandar HL 55% GA for sonogram 20w5d | | | (69o9u-58x7d) Weight Estimate: based on (BPD,HC,AC,FL) | | | Hadlock Weight: 392 gm (335-449gm) Hadloc | | | : 0lbs, 13oz | | | Normal: 430 gm | | | (291-877gm) Breivaniae | | | Wt% 39% for 21w2d [...] ask for the | | | perinatologist housing liaison. [phone] or [phone] [place], | | | TKIA Peng MD <Electronic Signature> | | | 02/15/2018 10:38am I have personally reviewed the images and, | | | if necessary, edited the report. I agree with the report as now | | | presented. | | + + + + + | Procedure Note | + + | Service Jose, Radiant Res In Interface - 02/15/2018 10:38 AM PDT | | [facility] OBSTETRICAL ULTRASOUND | | REPORT Pat. Name: | | LAUREANO BRADYat. No: [id number] Date: 02/15/2018 8:05amDOB, Age: | | 1995, 22Pregnancies: 1, Para 0000LMP: UnknownGA by US: | | 04l1pRL Selected: 21w2d (From Known E)CHANTAL: 06/26/2018Referring MD: | | LINDSEY, ANALENESonographer: MALCOLM LA, SUSANA, RVTCPT4: | | [id number] | | & AGE GROWTH EVALUATIONMeasurement GA Range Srce %for | | GA Ratios ----- ---- ------- BPD 5.0 | | cm 21w0d (00v6q-20a0r) Hadl BPD 44% FL/BPD 0.70HC 18.2 cm 20w4d (13t4d-77l8d) Hadl HC | | 30% FL/AC 0.22AC 16.0 cm 21w1d (95h2u-61v7x) Hadl AC 47% HC/AC 1.14 (1.05 - 1.24)FL | | 3.5 cm 21w0d (05m0b-21m7o) Hadl FL 41% CI 0.78 (0.70 - 0.86)HL 3.4 cm 21w4d | | (31r1j-29q6i) Bandar HL 55%GA for sonogram 20w5d (24p4j-64f2b) Weight | | Estimate:based on (BPD,HC,AC,FL) Hadlock Weight: 392 gm (335-449gm) Hadloc | | : 0lbs, 13oz | | Normal: 430 gm (291-877gm) Brenne Wt% 39% for | | 72i8hDrdhhga for Chromosomal Abnormality:NF 5.7 mmCervix: Length: 4 [...] any time and ask for the perinatologist housing liaison. | | [phone] or [phone], KATHLEEN F, | | <Electronic Signature> 02/15/2018 [...] ask for the perinatologist on | |call. [phone] or [phone] | |TIKA GHOTRA MD | | | [...] + | screening for malformation using ultrasonics Encounter for routine | | screening for malformation using ultrasonics | + + documented in this encounter"
--- OUTSIDE RECORDS SUMMARY | ~2020-02-23 | XMS | Encounter Summary ---
Demographics + + + | Address | [address] | | | [place] [address] | + + + | Home Phone [...] + | Bolivar Harris | ECON | [address] | | | | | [place] [address] | | + + + + + Care Team Providers + +------+ + | Care Net Washer Name | Role | Phone | + +------+ + | No Pcp Per Patient | PCP | Unavailable | + +------+ + Encounter Details +--------+ + + + + | Date | Type | Department | Care Team | Description | +--------+ + + + + | 11/18/ | Orders Only | [place] | Veda Villegas RN | | | 2018 | | [facility] [address] | | | | | [address] | [place] | | | | | [address] [place] | [address] | | | | | [address] | | | | | | [phone] | | | +--------+ + + + [...] [place] | | | | | | [address] | | | | | | [phone] | | | | | | | | +--------+ + + + + | 03/02/ | | Obstetrics & | Tika Clifford | | | 2020 | | Gynecology | MD Gold,S [address] | | | | | | [place], | | | | | | [place] [address] | | | | | | [phone] | | | | | | | | +--------+ + + + + documented as of this encounter Visit Diagnoses Not on filedocumented in this encounter"
--- NOTE | 2020-02-23 07:55 | PR ---
[facility] [address] [facility] [place], [place] [address] Signed Progress Notes IP Datetime Report Generated by CPN: 02/23/2020 07:55 PROGRESS NOTES: [id number] Impression: Normal Progression of Labor; Reassuring Heart Rate Procedures: Sterile Vag Exam Plan: Continue Present Management Informed Consent Obtain: Vaginal Delivery VITAL SIGNS: [id number] Vital Signs: Reviewed; Within Normal Limits EXAM: [id number] Dilatation: 7.0 Effacement: 75 Station: -2 MEMBRANES: [id number] Comments: Pt doing well. No cervical change noted and CTXs rare. Declines intervention such as pitocin or AROM. Continue expectant management FETUS A: [id number] FHR Baseline: 130 Variability: Moderate 6-25bpm Accelerations: 15X15 Decelerations: None FHR Category: Category I Presentation: Vertex Comments on Fetus A: No evidence of metabolic acidosis FETUS B: [id number] Signing Physician: Skinny Velazquez DO Copies: ~ *Electronically Signed* 02/23/20 0755 SKINNY VELAZQUEZ DO PATIENT NAME: YASMANY BRADYSUDHAKAR Edwards PROGRESS NOTE DATE OF : [birth year] PHYSICIAN: SKINNY VELAZQUEZ DO RPT #: [id number] REPORT IS CONFIDENTIAL AND NOT TO BE RELEASED WITHOUT AUTHORIZATION
--- NOTE | 2020-02-23 10:02 | PR ---
[facility] [address] [facility] [place], [place] [address] Signed Progress Notes IP Datetime Report Generated by CPN: 02/23/2020 10:02 PROGRESS NOTES: [id number] Impression: Normal Progression of Labor Procedures: Sterile Vag Exam Plan: Continue Present Management Informed Consent Obtain: Vaginal Delivery VITAL SIGNS: [id number] Vital Signs: Reviewed; Within Normal Limits EXAM: [id number] Dilatation: 7.0 Effacement: 75 Station: -2 MEMBRANES: [id number] Comments: Pt seen and evaluated. Ambulating in hallway. Ctxs mild/moderate. Declines cervical check at this time. All questions answered FETUS A: [id number] FHR Baseline: 130 Variability: Moderate 6-25bpm Accelerations: 15X15 Decelerations: None FHR Category: Category I Presentation: Vertex Comments on Fetus A: No evidence of metabolic acidosis FETUS B: [id number] Signing Physician: Skinny Velazquez DO Copies: ~ *Electronically Signed* 02/23/20 1002 SKINNY VELAZQUEZ DO PATIENT NAME: CAITLYNLAUREANO Edwards PROGRESS NOTE DATE OF : [birth year] PHYSICIAN: SKINNY VELAZQUEZ DO [facility] #: [id number] REPORT IS CONFIDENTIAL AND NOT TO BE RELEASED WITHOUT AUTHORIZATION
--- NOTE | 2020-02-23 15:32 | PR ---
[facility] [address] [place], [place] [address] Signed Progress Notes IP Datetime Report Generated by ROGELIO: 02/23/2020 15:32 PROGRESS NOTES: [id number] Impression: Reassuring Heart Rate Procedures: Sterile Vag Exam Other Procedures: Sweeping of membranes Plan: Continue Present Management Informed Consent Obtain: Vaginal Delivery VITAL SIGNS: [id number] Vital Signs: Reviewed; Within Normal Limits EXAM: [id number] Dilatation: 7.0 Effacement: 75 Station: -2 MEMBRANES: [id number] Comments: Pt seen and examined. Despite advanced cervical dilation, no regular or painful contractions. Pt frustrated w/ lack of process. Discussed options for management. Recommended AROM followed by expectant management. Reviewed vertex well applied, favorable cervix, and adequate pelvis. Pt strongly declines AROM. Discussed her concerns and she is worried that if she continues without cervical change and ruptured, pitocin would be given. Reviewed indications for pitocin and again pt declines AROM or augmentation of labor. Pt considering leaving AMA. Recommended against discharge home at this point. Pt requests sweeping of membranes which was performed with difficulty or ROM. Pt will continue to ambulate and will soak in tub. All questions answered and pt and agree with plan of care. FETUS A: [id number] FHR Baseline: 130 Variability: Moderate 6-25bpm Accelerations: 15X15 Decelerations: None FHR Category: Category I Presentation: Vertex Comments on Fetus A: No evidence of metabolic acidosis FETUS B: [id number] Signing Physician: Skinny Velazquez DO Copies: *Electronically Signed* 02/23/20 1532 VELAZQUEZ,SKINNY Phillips DO PATIENT NAME: LAUREANO BRADY PROGRESS NOTE DATE OF : [birth year] PHYSICIAN: SKINNY VELAZQUEZ DO RPT #: [id number] REPORT IS CONFIDENTIAL AND NOT TO BE RELEASED WITHOUT AUTHORIZATION [facility] [address] [address] Signed ~ *Electronically Signed* 02/23/20 1532 VELAZQUEZ,SKINNY Phillips DO PATIENT NAME: LAUREANO BRADY Jerry PROGRESS NOTE DATE OF : [birth year] PHYSICIAN: SKINNY VELAZQUEZ DO RPT #: [id number] REPORT IS CONFIDENTIAL AND NOT TO BE RELEASED WITHOUT AUTHORIZATION
--- NOTE | 2020-02-23 17:22 | PR ---
[facility] [address] [place], [place] [address] Signed Progress Notes IP Datetime Report Generated by ROGELIO: 02/23/2020 17:22 PROGRESS NOTES: [id number] Impression: Normal Progression of Labor; Reassuring Heart Rate Procedures: Sterile Vag Exam Other Procedures: Sweeping of membranes Plan: Continue Present Management; Anticipate Vaginal Delivery Informed Consent Obtain: Vaginal Delivery VITAL SIGNS: [id number] Vital Signs: Reviewed; Within Normal Limits EXAM: [id number] Dilatation: 8.5 Effacement: 75 Station: 0 MEMBRANES: [id number] ROM Note: pt unsure if membranes ruptured in bath Comments: Called to pt room. SROM while pt resting in tub. CTXs increasing in frequency and intensity for past _ 1 hr. Pt now feeling lots of pressure and urge to push. Declines cervical exam at current time, but recent check shows Cx 8-9cm. Anticipate soon. Reviewed anticipated course of delivery FETUS A: [id number] FHR Baseline: 130 Variability: Moderate 6-25bpm Accelerations: 15X15 Decelerations: None FHR Category: Category I Presentation: Vertex Comments on Fetus A: No evidence of metabolic acidosis FETUS B: [id number] Signing Physician: Skinny Velazquez DO Copies: ~ *Electronically Signed* 02/23/20 2343 SKINNY VELAZQUEZ DO PATIENT NAME: LAUREANO BRADY PROGRESS NOTE DATE OF : [birth year] PHYSICIAN: SKINNY VELAZQUEZ DO RPT #: [id number] REPORT IS CONFIDENTIAL AND NOT TO BE RELEASED WITHOUT AUTHORIZATION
--- NOTE | 2020-02-23 18:31 | PR ---
[facility] [address] [place], [place] [address] Signed PP Progress Notes Datetime Report Generated by ROGELIO: 02/23/2020 18:31 SUBJECTIVE: [id number] Pain: Within Normal Limits Vital Signs: [id number] Vital Signs: Reviewed Cardiovascular: Normal Respiratory: Normal Abdomen/Uterus: Normal Lochia: Abnormal Extremities: Normal Progress: Normal Exam Comments: See note below IMPRESSION/PLAN/PROCEDURES: [id number] Progress Notes: Called to pt's bedside for concerns of pp hemorrhage. 250cc EBL. Pt then passed 400cc of blood by QBL. Bedside exam shows atonic uterus w/ moderate clots at perineum. Uterus evaluated for 200cc clot and firmed well. Pt initailly declined immediate pitocin and uterus was initially firm. Bedside exam shows atonic uterus w/ moderate clots at perineum. Uterus evaluated for 200cc clot and firmed well. Bimanual pressure held and uterus remained firm. Pt now accepts pp pitocin. Recommended rectal cytotec which pt accepts. 1000mcg rectal cytotec placed. Uterus remained firm and bleeding now scant. Discussed serious nature of pp hemorrhage and importance of close monitoring of blood loss. Discussed hx of asthma and hemabate contraindicated. If pt has additional bleeding, would recommend TXA and methergine. Pt understands and agrees. Discussed possible Bakri balloon, D_C, or hysterectomy if clinically indicated. Pt understands and agrees. Second large bore IV placed. Will monitor closely. Signing Physician: Skinny Velazquez DO Copies: ~ *Electronically Signed* 02/23/20 2774 SKINNY VELAZQUEZ DO PATIENT NAME: KAMRYN BRADYJoe Edwards PROGRESS NOTE DATE OF : [birth year] PHYSICIAN: SKINNY VELAZQUEZ DO RPT #: [id number] REPORT IS CONFIDENTIAL AND NOT TO BE RELEASED WITHOUT AUTHORIZATION
--- NOTE | 2020-02-23 19:36 | PR ---
[facility] [address] [facility] [place], [place] [address] Signed PP Progress Notes Datetime Report Generated by CPN: 02/23/2020 19:35 SUBJECTIVE: [id number] Pain: Within Normal Limits Nausea/Vomiting: Denies Flatus: Yes Vital Signs: [id number] Vital Signs: Reviewed Cardiovascular: Normal Respiratory: Normal Abdomen/Uterus: Normal Lochia: Normal Vulva/Perineum: Normal Extremities: Normal Incision: Not Applicable Progress: Normal Exam Comments: See below IMPRESSION/PLAN/PROCEDURES: [id number] Other Impression: PP hemorrhage - improved Progress Notes: Pt seen and examined. Doing well. Fundus firm. No intrauterine clot or active bleeding with bimanualy. QBL per RN now 1005cc. Pt denies lightheadeness/dizziness/chest pain. Reviewed pp hemorrhage and options for continued management / monitoring. Recommended TXA 1g IV x 1 dose and labs (CBC, fibrinogen, INR, PT, PTT). Pt understands and agrees. Signing Physician: Skinny Velazquez DO Copies: ~ *Electronically Signed* 02/23/20 193 SKINNY VELAZQUEZ DO PATIENT NAME: LAUREANO BRADY PROGRESS NOTE DATE OF : [birth year] PHYSICIAN: SKINNY VELAZQUEZ DO RPT #: [id number] REPORT IS CONFIDENTIAL AND NOT TO BE RELEASED WITHOUT AUTHORIZATION
--- NOTE | 2020-02-24 10:54 | PR ---
[facility] [address] [place], [place] [address] Signed PP Progress Notes Datetime Report Generated by CPN: 02/24/2020 10:53 SUBJECTIVE: [id number] Pain: Within Normal Limits Nausea/Vomiting: Denies Flatus: Yes Vital Signs: [id number] Vital Signs: Reviewed; Within Normal Limits EXAM: Met Cardiovascular: Normal Respiratory: Normal Abdomen/Uterus: Normal Lochia: Normal Vulva/Perineum: Not Done Breasts: Not Done CVA Tenderness: Normal Extremities: Normal Incision: Not Applicable Progress: Normal Exam Comments: Fundus firm U-2 nontender IMPRESSION/PLAN/PROCEDURES: [id number] Impression: Normal Progression Other Impression: PP hemorrhage - improved Plan: Discharge Progress Notes: Pt seen and examined. Doing well. Ambulating, voiding, and tolerating full diet. Pain and lochia minimal. well. No lightheadedness or dizziness. Hgb 12.0. No other questions or concerns. Desires d/c home today. Reviewed d/c instructions in detail. Pt planning on f/u w/ incoming inspector Signing Physician: Skinny Velazquez DO Copies: ~ *Electronically Signed* 02/24/20 1053 SKINNY VELAZQUEZ DO PATIENT NAME: LAURENAO BRADY PROGRESS NOTE DATE OF : [birth year] PHYSICIAN: SKINNY VELAZQUEZ DO RPT #: [id number] REPORT IS CONFIDENTIAL AND NOT TO BE RELEASED WITHOUT AUTHORIZATION
== END 2020-02-24 18:00 | disposition home or self-care (01) | DRG 807 ==
LOC: FBCO 06:25 → FBC 06:45
PROVIDERS: ADMIT Obstetrics & Gynecology
PROC: 10E0XZZ Delivery of Products of Conception, External Approach (ICD-10-PCS; principal; 2020-02-23)
DX: O72.1 Other immediate postpartum hemorrhage (principal); Z37.0 Single live birth; Z3A.39 39 weeks gestation of pregnancy
CPT/HCPCS: 36415; 85025; 85027; 85384; 85610; 85730; A9270